=== PATIENT | female | born 1970 | race Caucasian/White ===

== ENCOUNTER 2019-12-25 02:52 | Day surgery (SDC) | payer OTHER, SELFPAY ==
[2019-12-18 13:11] VITALS: BMI 36.0
--- NOTE | 2019-12-24 12:53 | HP_ITS ---
DATE OF SERVICE: 12/25/2019 HISTORY: A 49-year-old with hoarseness. She voices hoarse. She has trouble breathing, feels like her throat is closing. REVIEW OF SYSTEMS: Unremarkable. PHYSICAL EXAMINATION: CHEST: Clear. HEART: Without murmurs. ABDOMEN: Soft. EXTREMITIES: Negative. IMPRESSION: Swollen cords. PLAN: Direct laryngoscopy. She had a fiberoptic laryngoscopy in the office which showed swollen cords. D I MT: Toi
[2019-12-25] VITALS (11 sets, daily range): BP systolic 107–139; BP diastolic 68–84; PULSE 67–85; RESP 14–20; TEMP 36–36.2; O2SAT 87–99
--- NOTE | 2019-12-25 06:02 | WPDHPUPDATE1 ---
History and Physical Update Update Date/Time: 12/25/19 06:02 History and Physical has been reviewed, including an updated exam of the patient. There are NO changes in the patient's condition. Risks, benefits, and alternatives have been discussed and questions answered. Patient agrees to proceed with procedure.
[2019-12-25] MEDS: LACTATED RINGERS 1,000 ML 30 ML IV CONT (08:25)
--- NOTE | 2019-12-25 08:31 | WPDANESEPPF ---
Anes - Initial Pre Proc Eval Procedure: Operation Date: 12/25/19 09:45 Proposed Procedures p Microlaryngoscopy with Biopsy - Kulwant Anaya MD Date/Time: 12/25/19 08:31 Surgeon: Kulwant Anaya MD Pre Op Diagnosis: Chronic Hoarseness Patient Data Age: 49 Gender: F Height: 5 ft 7 in Weight: 104.33 kg Allergies Allergy/AdvReac Type Severity Reaction Status Date / Time No Known Allergies Allergy Verified 12/18/19 13:12 Home Medications Medication Instructions Recorded Confirmed Type albuterol sulfate 2 puff INHALATION DAILY 12/18/19 12/18/19 History albuterol sulfate 2.5 mg INHALATION DIRECTED PRN 12/18/19 12/18/19 History budesonide-formoterol [Symbicort] 1 inh INHALATION DAILY 12/18/19 12/18/19 History duloxetine 60 mg PO DAILY 12/18/19 12/18/19 History fluoxetine 20 mg PO DAILY 12/18/19 12/18/19 History fluticasone propionate 1 spray INTRANASAL BID 12/18/19 12/18/19 History lamotrigine 50 mg PO DAILY 12/18/19 12/18/19 History lithium carbonate 450 mg PO BID 12/18/19 12/18/19 History montelukast 10 mg PO DAILY 12/18/19 12/18/19 History nicotine 1 patch TRANSDERMAL DAILY 12/18/19 12/18/19 History omeprazole 40 mg PO DAILY 12/18/19 12/18/19 History quetiapine 25 mg PO DAILY 12/18/19 12/18/19 History quetiapine 300 mg PO HS 12/18/19 12/18/19 History ropinirole 8 mg PO HS 12/18/19 12/18/19 History umeclidinium [Incruse Ellipta] 1 inh INHALATION DAILY 12/18/19 12/18/19 History valacyclovir 500 mg PO DAILY PRN 12/18/19 12/18/19 History Patient hx anesthesia problems: none Family hx anesthesia problems: none PMFSH Past Medical History Medical History (Updated 12/25/19 @ 08:31 by Calvin Holt MD) Bipolar 1 disorder COPD (chronic obstructive pulmonary disease) Hypertension Hyperthyroidism Social History Social History (Updated 12/25/19 @ 08:26 by Calvin Holt MD) Smoking status: Current every day smoker Alcohol intake: former Anes - Eval Final PreProcedure Day of Procedure 12/25/19 08:31 Patient weight: obese Heart: regular rate and rhythm Lungs: clear to auscultation Airway: Mallampati scale class III Neurological: alert and oriented Last oral intake: >/= 8 hours ASA classification: III Emergent: no Anesthetic plan: proceed Anesthesia type and monitoring: general ETT and standard monitoring Informed Consent: The patient's anesthetic plan and its attendant risks and benefits were discussed with the patient/family/POA. Questions were solicited and answers provided to the satisfaction of the patient/family/POA.
--- NOTE | 2019-12-25 09:44 | PM.PROC ---
Procedure Note - Detailed Date of procedure: 12/25/19 Pre-op diagnosis: Chronic Hoarseness Description of procedure: Patient was prepped general anesthesia of laryngoscope was introduced to the level of glottis. Large lesions were seen on the right side which were adequately biopsied sent for pathologic examination patient awakened returned to recovery in good condition Anesthesia: GLMA Surgeon: Kulwant Anaya MD Estimated blood loss (mL): 5 Packing: No Pathology: yes Complications: No immediate complications Condition: stable Disposition: PACU
--- NOTE | 2019-12-25 10:35 | SUR.PHASEI ---
[address] KRUEGER PER PHONE & MADE AWARE PT ON 2L O2 PER NC. DR ALEMAN TO DISCHARGE PT TO OP RECOVERY ON 2L OXYGEN & HAVE PT WEANED OFF O2 BEFORE D/C HOME.
--- NOTE | 2019-12-25 11:46 | SUR.PHASEII ---
Pt and her friend awaiting pick from med car, per PTs friend expected arrival within the hour
--- NOTE | 2019-12-25 11:55 | SUR.PHASEII ---
Pt given discharge instructions with friend at the bedside, awaiting medcar
== END 2019-12-25 12:40 | disposition home or self-care (01) ==
PROVIDERS: PCP Internal Medicine; Visit Provider Otolaryngology
PROC: 0CJS8ZZ Inspection of Larynx, Via Natural or Artificial Opening Endoscopic (ICD-10-PCS; CPT 31575; principal; 2019-12-25 09:45)
DX: J04.0 Acute laryngitis (principal); I10 Essential (primary) hypertension; J44.9 Chronic obstructive pulmonary disease, unspecified; E21.3 Hyperparathyroidism, unspecified; F31.9 Bipolar disorder, unspecified; F17.210 Nicotine dependence, cigarettes, uncomplicated; E66.9 Obesity, unspecified; Z68.35 Body mass index [BMI] 35.0-35.9, adult
CPT/HCPCS: 31536; 88305; A9270; J0330; J1100; J2250; J2405; J2704; J3010; J7120

== ENCOUNTER 2019-12-30 09:33 | Emergency (ER) | payer OTHER, SELFPAY ==
--- NOTE | ~2019-12-30 | XR_ITS ---
XR chest 2V DATE: 12/30/2019 10:02 INDICATION: Shortness of breath. Positive influenza. History of COPD. TECHNIQUE: PA and lateral views COMPARISON: None FINDINGS: Normal heart size. No hilar or mediastinal enlargement. No pulmonary infiltrate or consolid ation, pleural effusion or pulmonary vascular congestion or pneumothorax. Included skeletal structures are unremarkable. IMPRESSION: No active cardiopulmonary disease Reviewed, dictated and finalized at location [facility]
--- NOTE | 2019-12-30 09:38 | ED_ITS ---
I attest that this documentation has been prepared under the direction and in the presence of Shoshana Roberts MD. Yaa Gonzalez Scribe 12/30/19;09:38 HPI - URI/Sore Throat General Chief Complaint: Shortness of Breath/Dyspnea Stated Complaint: sob Time Seen by Provider: 12/30/19 09:38 Related Data Home Medications Medication Instructions Recorded Confirmed Incruse Ellipta 1 inh INHALATION DAILY 12/18/19 12/25/19 albuterol sulfate 2 puff INHALATION DAILY 12/18/19 12/25/19 albuterol sulfate 2.5 mg INHALATION DIRECTED PRN 12/18/19 12/25/19 budesonide-formoterol [Symbicort] 1 inh INHALATION DAILY 12/18/19 12/25/19 duloxetine 60 mg PO DAILY 12/18/19 12/25/19 fluoxetine 20 mg PO DAILY 12/18/19 12/25/19 fluticasone propionate 1 spray INTRANASAL BID 12/18/19 12/25/19 lamotrigine 50 mg PO DAILY 12/18/19 12/25/19 lithium carbonate 450 mg PO BID 12/18/19 12/25/19 montelukast 10 mg PO DAILY 12/18/19 12/25/19 nicotine 1 patch TRANSDERMAL DAILY 12/18/19 12/25/19 omeprazole 40 mg PO DAILY 12/18/19 12/25/19 quetiapine 25 mg PO DAILY 12/18/19 12/25/19 quetiapine 300 mg PO HS 12/18/19 12/25/19 ropinirole 8 mg PO HS 12/18/19 12/25/19 valacyclovir 500 mg PO DAILY PRN 12/18/19 12/25/19 Allergies Allergy/AdvReac Type Severity Reaction Status Date / Time No Known Allergies Allergy Verified 12/25/19 08:55 [facility] Past Medical History Medical History (Updated 12/25/19 @ 08:31 by Calvin Holt MD) Bipolar 1 disorder COPD (chronic obstructive pulmonary disease) Hypertension Hyperthyroidism Social History Social History (Updated 12/25/19 @ 08:26 by Calvin Holt MD) Smoking status: Current every day smoker Alcohol intake: former Discharge Plan Discharge Prescriptions: No Action quetiapine 25 mg tablet 25 mg PO DAILY RF: 0 quetiapine 300 mg tablet 300 mg PO HS RF: 0 albuterol sulfate 2.5 mg /3 mL (0.083 %) solution for nebulization 2.5 mg inhalation DIRECTED PRN (Reason: Shortness Of Breath Or Wheezing) RF: 0 valacyclovir 500 mg tablet 500 mg PO DAILY PRN (Reason: Outbreak) RF: 0 omeprazole 40 mg capsule,delayed release(DR/EC) 40 mg PO DAILY RF: 0 lithium carbonate 450 mg Tablet Extended Release 450 mg PO BID RF: 0 nicotine 21 mg/24 hr patch 24 hour 1 patch transdermal DAILY RF: 0 montelukast 10 mg tablet 10 mg PO DAILY RF: 0 albuterol sulfate 90 mcg/actuation HFA aerosol inhaler 2 puff INHALATION DAILY RF: 0 fluoxetine 20 mg capsule 20 mg PO DAILY RF: 0 fluticasone propionate 50 mcg/actuation spray,suspension 1 spray INTRANASAL BID RF: 0 duloxetine 60 mg capsule,delayed release(DR/EC) 60 mg PO DAILY RF: 0 budesonide-formoterol [Symbicort] 160-4.5 mcg/actuation HFA aerosol inhaler 1 inh INHALATION DAILY RF: 0 ropinirole 8 mg Tablet Extended Release 24 Hr 8 mg PO HS RF: 0 lamotrigine 50 mg Tablet Extended Release 24hr 50 mg PO DAILY RF: 0 Incruse Ellipta 62.5 mcg/actuation blister with device 1 inh INHALATION DAILY RF: 0
[2019-12-30 09:41] VITALS: BP 120/68; PULSE 88; RESP 14; TEMP 36.2; O2SAT 98
--- NOTE | 2019-12-30 09:45 | ECG_ITS ---
Measurements Intervals [place] Rate: 92 P: 62 TX: 155 QRS: 61 QRSD: 81 T: 47 QT: 321 QTc: 399 Interpretive Statements SINUS RHYTHM BASELINE ARTIFACT- I, II, III NORMAL ECG Electronically Signed On 12-30-2019 11:24:46 CASH ACCOUNTING CLERK by Doug Hannah D.O.
--- NOTE | 2019-12-30 09:57 | ED.SOB ---
HPI - SOB/Dyspnea General Chief Complaint: Shortness of Breath/Dyspnea Stated Complaint: sob Time Seen by Provider: 12/30/19 09:38 Source: patient Mode of arrival: EMS Limitations: no limitations History of Present Illness HPI Narrative: This is a 49 year old female that presents to the ER for cold symptoms x 2 days. Reports cough, myalgias, chills and congestion. She did not get her influenza vaccine this year. Reports shortness of breath and history of COPD. Reports she had a biopsy of her throat earlier this week for chronic hoarseness by Dr. Anaya. Denies chest pain. Related Data Home Medications Medication Instructions Recorded Confirmed Incruse Ellipta 1 inh INHALATION DAILY 12/18/19 12/25/19 albuterol sulfate 2 puff INHALATION DAILY 12/18/19 12/25/19 albuterol sulfate 2.5 mg INHALATION DIRECTED PRN 12/18/19 12/25/19 budesonide-formoterol [Symbicort] 1 inh INHALATION DAILY 12/18/19 12/25/19 duloxetine 60 mg PO DAILY 12/18/19 12/25/19 fluoxetine 20 mg PO DAILY 12/18/19 12/25/19 fluticasone propionate 1 spray INTRANASAL BID 12/18/19 12/25/19 lamotrigine 50 mg PO DAILY 12/18/19 12/25/19 lithium carbonate 450 mg PO BID 12/18/19 12/25/19 montelukast 10 mg PO DAILY 12/18/19 12/25/19 nicotine 1 patch TRANSDERMAL DAILY 12/18/19 12/25/19 omeprazole 40 mg PO DAILY 12/18/19 12/25/19 quetiapine 25 mg PO DAILY 12/18/19 12/25/19 quetiapine 300 mg PO HS 12/18/19 12/25/19 ropinirole 8 mg PO HS 12/18/19 12/25/19 valacyclovir 500 mg PO DAILY PRN 12/18/19 12/25/19 Allergies Allergy/AdvReac Type Severity Reaction Status Date / Time No Known Allergies Allergy Verified 12/30/19 09:47 Review of Systems Review of Systems: Narrative: CONSTITUTIONAL: Reports fever, chills ENT: Reports rhinorrhea, congestion, sore throat. Denies otalgia. CARDIOVASCULAR: Denies chest pain RESPIRATORY: Reports cough and dyspnea. MUSCULOSKELETAL: Reports myalgias. All systems reviewed & are unremarkable except as noted in HPI and below PMFSH Past Medical History Medical History (Updated 12/30/19 @ 10:35 by Ashleigh Sommers PA-C) Bipolar 1 disorder COPD (chronic obstructive pulmonary disease) Hypertension Hyperthyroidism Social History Social History (Updated 12/25/19 @ 08:26 by Calvin Holt MD) Smoking status: Current every day smoker Alcohol intake: former Gender identity (if verbalized by the patient): Female Exam Narrative: Exam Narrative: GENERAL: Well-appearing, well-nourished, and in no acute distress. HEAD: Normocephalic, atraumatic. EYES: EOMI. ENT: Turbinates swollen and pale. Mucous membranes moist. Oropharynx with mild erythema, without tonsillar hypertrophy, exudate or other lesions. Bilateral TMs pearly noguera non-bulging NECK: Supple. No adenopathy or masses. CHEST: No respiratory distress. Coarse breath sounds. Scattered wheezes. No rales or rhonchi HEART: Regular rate and rhythm. No murmur heard. Normal peripheral pulses. EXTREMITIES: Normal range of motion. No edema. SKIN: Warm, dry, no rash. NEURO: No focal deficits. Alert and oriented x3. PSYCH: Normal mood and affect Course Reevaluation(s) Reevaluation #1: Patient with improvement after breathing treatment. Lungs sound much more clear, mild scattered wheezes Date: 12/30/19 Time: 10:34 Vital Signs Vital signs: Vital Signs Temperature 97.2 F L 12/30/19 09:41 Pulse Rate 88 12/30/19 09:41 Respiratory Rate 14 12/30/19 09:41 Blood Pressure 120/68 12/30/19 09:41 Pulse Oximetry 98 12/30/19 09:41 Temperature 97.2 F L 12/30/19 09:41 Pulse Rate 81 12/30/19 10:11 Respiratory Rate 22 H 12/30/19 10:11 Blood Pressure 120/68 12/30/19 09:41 Pulse Oximetry 98 12/30/19 09:41 MDM - SOB/Dyspnea MDM Narrative Medical decision making narrative: Patient presents to the ER for cold symptoms x2 days. She is afebrile and nontoxic-appearing. CBC and metabolic panel is without acute changes. Chest x-ray is without acute changes. Pat
[2019-12-30 10:03] VITALS: PULSE 80; RESP 22
[2019-12-30] MEDS: IPRATROPIUM BR 0.02% INH SOLN 0.5 MG/2.5 ML VIAL INHALATION (10:03)
[2019-12-30] MEDS: ALBUTEROL SULFATE NEB 2.5 MG/0.5 ML INH 5 MG INHALATION (10:03)
[2019-12-30 10:11] VITALS: PULSE 81; RESP 22
[2019-12-30 10:12] LABS: Basophils Percent Auto 0.4 % (0.2-1.2); Eosinophils Absolute Auto 0.2 K/mm3 (0-0.3); Eosinophils Percent Auto 1.8 % (0-4.4); Hematocrit 40.1 % (37.0-47.0); Immature Granulocyte Absolute 0.03 K/mm3 (0.00-0.031); Immature Granulocyte Percent A 0.4 % (0-0.5); Lymphocytes Percent Auto 14.3 % (18.3-44.2); Mean Corpuscular HGB Conc 32.4 g/dl (32-36); Mean Corpuscular Hemoglobin 30.5 pg (26-34); Mean Corpuscular Volume 94.1 fl (80-100); Mean Platelet Volume 9.6 fl (7.4-10.4); Monocytes Absolute Auto 0.7 K/mm3 (0.1-0.6); Neutrophils Absolute Auto 6.3 K/mm3 (1.3-6.7); Neutrophils Percent Auto 75.1 % (45.5-73.1); Platelet Count Result 195 k/mm3 (150-375); Red Blood Count 4.26 M/mm3 (4.2-5.4); Red Cell Distribution Width 13.6 % (11.5-14.5); White Blood Count 8.4 K/mm3 (4.5-10.0)
[2019-12-30 10:25] LABS: Blood Urea Nitrogen 9 mg/dL (7-17); Calcium 8.9 mg/dL (8.4-10.2); Carbon Dioxide 22 mmol/L (22-30); Chloride 109 mmol/L (98-107); Estimated Glomerular Filt Rate > 60; Glucose 116 mg/dL (65-105); Potassium 4.1 mmol/L (3.4-5.0); Sodium 141 mmol/L (137-145)
[2019-12-30] MEDS: predniSONE 20 MG TABLET 60 MG PO (10:35)
[2019-12-30] MEDS: ACETAMINOPHEN 500 MG TABLET 1000 MG PO (10:35)
[2019-12-30] MEDS: OSELTAMIVIR PHOSPHATE 75 MG CAP PO (10:35)
[2019-12-30 11:00] VITALS: BP 105/75; PULSE 78; RESP 16; O2SAT 96
== END 2019-12-30 11:00 | disposition home or self-care (01) ==
PROVIDERS: Physician Assistant; Emergency Provider Emergency Medicine; PCP Internal Medicine
DX: J10.1 Influenza due to other identified influenza virus with other respiratory manifestations (principal); J44.1 Chronic obstructive pulmonary disease with (acute) exacerbation; F31.9 Bipolar disorder, unspecified; I10 Essential (primary) hypertension; E05.90 Thyrotoxicosis, unspecified without thyrotoxic crisis or storm; F17.200 Nicotine dependence, unspecified, uncomplicated
CPT/HCPCS: 36415; 71046; 80048; 85025; 87804; 93005; 94640; 99283; A9270; J7512

== ENCOUNTER 2020-04-12 00:38 | Outpatient (CLI) | payer OTHER, SELFPAY ==
[2020-04-12 16:46] LABS: SARS-CoV-2 RNA PCR Negative
== END 2020-04-12 00:39 | disposition home or self-care (01) ==
LOC: ANHCOVIDDT 00:39
PROVIDERS: PCP Internal Medicine; Visit Provider Otolaryngology
DX: Z01.812 Encounter for preprocedural laboratory examination (principal); Z20.828 Contact with and (suspected) exposure to other viral communicable diseases
CPT/HCPCS: 87635; C9803; U0003

== ENCOUNTER 2020-04-15 00:55 | Day surgery (SDC) | payer OTHER, SELFPAY ==
--- NOTE | 2020-04-10 06:25 | PM.HPGS ---
History of Present Illness History of Present Illness Consent: Risks, benefits, and alternatives have been discussed and questions answered. Patient agrees to proceed with procedure. Chief complaint: Chronic Horseness Narrative: Michelle Marshall is a 49 year old female Review of Systems Review of Systems: Narrative: Patient is admitted for evaluation of hoarseness her vocal cords are scarred she is admitted for microlaryngoscopy and vocal stripping chest clear heart murmurs abdomen is soft extremities negative hoarseness chronic laryngitis PMFSH Social History Social History Smoking status: Current every day smoker Alcohol intake: former Gender identity (if verbalized by the patient): Female Meds Home Medications and Allergies Home Medications Medication Instructions Recorded Confirmed Type Incruse Ellipta 1 inh INHALATION DAILY 12/18/19 12/25/19 History duloxetine 60 mg PO DAILY 12/18/19 12/25/19 History fluoxetine 20 mg PO DAILY 12/18/19 12/25/19 History fluticasone propionate 1 spray INTRANASAL BID 12/18/19 12/25/19 History lamotrigine 50 mg PO DAILY 12/18/19 12/25/19 History lithium carbonate 450 mg PO BID 12/18/19 12/25/19 History nicotine 1 patch TRANSDERMAL DAILY 12/18/19 12/25/19 History omeprazole 40 mg PO DAILY 12/18/19 12/25/19 History quetiapine 25 mg PO DAILY 12/18/19 12/25/19 History quetiapine 300 mg PO HS 12/18/19 12/25/19 History ropinirole 8 mg PO HS 12/18/19 12/25/19 History valacyclovir 500 mg PO DAILY PRN 12/18/19 12/25/19 History methylprednisolone 4 mg tablets in See Rx Instructions PO PER PKG DIR 02/04/20 02/04/20 Rx a dose pack #21 each Allergies Allergy/AdvReac Type Severity Reaction Status Date / Time No Known Allergies Allergy Verified 12/30/19 09:47 Exam HENMT: Other: tympanic membranes retracted with fluid nose mild negative serous otitis bilateral Assessment and Plan Additional Plan Microlaryngoscopy and vocal stripping examination of vocal cords is my plan
[2020-04-10 14:32] VITALS: BMI 39.1
[2020-04-15] VITALS (18 sets, daily range): BP systolic 110–160; BP diastolic 67–101; PULSE 65–112; RESP 14–27; TEMP 36.2–37.1; O2SAT 88–100
--- NOTE | 2020-04-15 06:15 | WPDHPUPDATE1 ---
History and Physical Update Update Date/Time: 04/15/20 06:15 History and Physical has been reviewed, including an updated exam of the patient. There are NO changes in the patient's condition. Risks, benefits, and alternatives have been discussed and questions answered. Patient agrees to proceed with procedure.
[2020-04-15] MEDS: LACTATED RINGERS 1,000 ML 30 ML IV CONT ×2 (07:20→09:15)
--- NOTE | 2020-04-15 07:45 | WPDANESEPPF ---
Anes - Initial Pre Proc Eval Procedure: Operation Date: 04/15/20 08:45 Proposed Procedures p Microlaryngoscopy With Biopsy - Kulwant Anaya MD Date/Time: 04/15/20 07:45 Surgeon: Kulwant Anaya MD Pre Op Diagnosis: Chronic Hoarseness Patient Data Age: 49 Gender: F Height: 5 ft 7 in Weight: 107.2 kg Allergies Allergy/AdvReac Type Severity Reaction Status Date / Time No Known Allergies Allergy Verified 04/15/20 07:25 Home Medications Medication Instructions Recorded Confirmed Type Incruse Ellipta 1 inh INHALATION DAILY 12/18/19 04/15/20 History duloxetine 60 mg PO DAILY 12/18/19 04/15/20 History fluticasone propionate 1 spray INTRANASAL BID 12/18/19 04/15/20 History lamotrigine 50 mg PO DAILY 12/18/19 04/15/20 History lithium carbonate 450 mg PO BID 12/18/19 04/15/20 History nicotine 1 patch TRANSDERMAL DAILY 12/18/19 04/15/20 History omeprazole 40 mg PO DAILY 12/18/19 04/15/20 History quetiapine 300 mg PO HS 12/18/19 04/15/20 History ropinirole 8 mg PO HS 12/18/19 04/15/20 History valacyclovir 500 mg PO DAILY PRN 12/18/19 04/15/20 History Dulera 100 mcg INHALATION BID 04/10/20 04/15/20 History quetiapine [Seroquel] 50 mg PO QAM 04/10/20 04/15/20 History Patient hx anesthesia problems: none Family hx anesthesia problems: none [facility] Past Medical History Medical History Bipolar 1 disorder COPD (chronic obstructive pulmonary disease) Hypertension Hyperthyroidism Social History Social History Smoking status: Current every day smoker Alcohol intake: former Gender identity (if verbalized by the patient): Female Anes - Eval Final PreProcedure Day of Procedure 04/15/20 07:45 Patient weight: obese Heart: regular rate and rhythm Lungs: decreased breath sounds Airway: Mallampati scale class II Neurological: alert and oriented Last oral intake: >/= 8 hours ASA classification: III Emergent: no Anesthetic plan: proceed Anesthesia type and monitoring: general ETT and standard monitoring Informed Consent: The patient's anesthetic plan and its attendant risks and benefits were discussed with the patient/family/POA. Questions were solicited and answers provided to the satisfaction of the patient/family/POA.
--- NOTE | 2020-04-15 08:50 | PM.PROC ---
Procedure Note - Detailed Date of procedure: 04/15/20 Pre-op diagnosis: Chronic Hoarseness Post-op diagnosis: same Procedure performed: Patient was prepped and draped in usual fashion after induction general anesthesia. The laryngoscope was introduced to the level of the glottis there is a large fleshy polyps in front of the vocal cords was difficult to ascertain which cord was coming from large up-biting biopsy forceps this was removed and sent for pathologic examination patient was then awakened returned to recovery in good condition Anesthesia: GLMA Surgeon: Kulwant Anaya MD Estimated blood loss (mL): 5.0 Drains: No Packing: No Pathology: yes Complications: No immediate complications Condition: stable Disposition: PACU
[2020-04-15] MEDS: ALBUTEROL SULFATE NEB 2.5 MG/3 ML INH INHALATION (09:30)
--- NOTE | 2020-04-15 10:14 | SUR.PHASEI ---
0858 - pt to pacu via stretcher. pt hooked up to monitor. o2 sats in 70s. pt unable to arouse. JACKIE Stevens at bedside. assisted with ambu-bag ventilation. o2 sats increased to 80%. Anesthesia called to PACU. 0900 - Anesthesia to bedside assisting with pt. mouth suctioned. scant amount of bloody drainage noted. Dr. James at bedside. 0910 - pt continues to have respiratory assistance given by anesthesia. 0913 - RT at bedside to place bipap on pt. o2 sats maintaining in 90s 0920 - Narcan 0.[address] James. 0925 - pt opens eyes and follows commands. breathing effort improving 0927 - albuterol treatment given by RT at bedside per Dr. James order 0935 - pt resting. pt follows commands. breathing effort improved 0945 - pt awake. complains of soreness to throat but tolerable. resp even and unlabored. pt warm and pink in color.
--- NOTE | 2020-04-15 10:42 | SUR.PHASEI ---
1037 - dr. varela updated 1038 - pt's friend Betsey called and updated
--- NOTE | 2020-04-15 10:47 | SUR.PHASEI ---
1038 - dr. mcknight updated on pt's status/
== END 2020-04-15 13:58 | disposition home or self-care (01) ==
PROVIDERS: PCP Internal Medicine; Visit Provider Otolaryngology
PROC: 0CJS8ZZ Inspection of Larynx, Via Natural or Artificial Opening Endoscopic (ICD-10-PCS; CPT 31575; principal; 2020-04-15 08:45)
DX: J38.1 Polyp of vocal cord and larynx (principal); J44.9 Chronic obstructive pulmonary disease, unspecified; I10 Essential (primary) hypertension; E05.90 Thyrotoxicosis, unspecified without thyrotoxic crisis or storm; F31.9 Bipolar disorder, unspecified; Z87.891 Personal history of nicotine dependence; E66.9 Obesity, unspecified; Z68.37 Body mass index [BMI] 37.0-37.9, adult
CPT/HCPCS: 31535; 88305; 94002; 94640; 94660; A9270; J0330; J1100; J2310; J2405; J2704; J3010; J7120

== ENCOUNTER 2020-05-14 08:33 | Outpatient (CLI) | payer OTHER, SELFPAY ==
--- NOTE | 2020-05-14 | ECHO_ITS ---
Patient Info Name: Michelle Marshall Age: 49 years : 1970 Gender: Female Ht: 67 in Wt: 250 lbs BSA: 2.37 m2 HR: 77 bpm BP: 143 / 84 mmHg Technical Quality: Good Exam Date: 05/14/2020 9:05 AM Exam Location: [facility] Patient Status: Outpatient Admit Date: 05/14/2020 Staff Ordering Physician: Marlon Anderson MD Bale Sewer: Yesica Dillon RDCS Attending Provider: Marlon Anderson MD Referring Physician: Monica MACKENZIE; Exam Type: CA echo doppler color flow Study Info Indications - chest pain Complete two-dimensional, color flow and Doppler transthoracic echocardiogram is performed. Summary 1. Left ventricular chamber dimension is normal. 2. Left ventricular systolic function is normal, estimated at 60-65%. 3. The left ventricular diastolic function is grade II diastolic dysfunction. 4. E/e' 12 is mildly elevated. 5. Left atrial chamber dimension is mildly enlarged. 6. There is trace tricuspid valve regurgitation. 7. No pulmonary hypertension, estimated pulmonary arterial systolic pressure is 20 mmHg. Left Ventricle E/e' 12 is mildly elevated. Left ventricular chamber dimension is normal. Left ventricular systolic function is normal, estimated at 60-65%. The left ventricular diastolic function is grade II diastolic dysfunction. Right Ventricle Right ventricular chamber dimension is normal. Right ventricular systolic function is normal. Left Atria Left atrial chamber dimension is mildly enlarged. Right Atria Right atrial chamber dimension is normal. Aortic Valve The aortic valve is trileaflet. There is no aortic valve stenosis. There is no aortic valve regurgitation. Pulmonic Valve There is no pulmonic regurgitation. Mitral Valve There is no mitral valve stenosis. There is no mitral valve regurgitation. Tricuspid Valve There is trace tricuspid valve regurgitation. No pulmonary hypertension, estimated pulmonary arterial systolic pressure is 20 mmHg. Pericardium/Pleural There is no pericardial effusion. Inferior Vena Cava Normal inferior vena cava with >50% collapse upon inspiration consistent with normal right atrial pressure, 5 mmHg. Aorta The aortic root size at the sinus of Valsalva is normal. Left Ventricular Outflow Tract Name Value Normal LVOT 2D LVOT Diameter 2.0 cm LVOT Doppler LVOT Peak Gradient 5 mmHg LVOT Mean Gradient 3 mmHg LVOT VTI 24 cm LVOT VTI/AV VTI Ratio 0.9 LVOT Stroke Volume 74 ml LVOT CO 13.7 l/min LVOT CI 5.8 l/min/m2 Pulmonic Valve Name Value Normal PV Doppler PV Peak Gradient 2 mmHg Mitral Valve
== END 2020-05-14 08:34 | disposition home or self-care (01) ==
LOC: ANHCARD 08:35
PROVIDERS: PCP Internal Medicine; Visit Provider Internal Medicine
DX: R07.9 Chest pain, unspecified (principal); I51.7 Cardiomegaly
CPT/HCPCS: 93306

== ENCOUNTER 2020-05-14 09:32 | Emergency (ER) | payer OTHER, SELFPAY ==
--- NOTE | ~2020-05-14 | XR_ITS ---
EXAMINATION: XR shoulder RT min 2V INDICATION: Right shoulder pain TECHNIQUE: Four views of the right shoulder are submitted. COMPARISON: 12/30/2019 FINDINGS: Normal alignment. No fracture. Glenohumeral and acromioclavicular joint spaces are normal. A metallic density in the right breast may reflect a biopsy marker. IMPRESSION: No acute osseous abnormality. Reviewed, dictated and finalized at location A.
--- NOTE | ~2020-05-14 | XR_ITS ---
EXAMINATION: XR finger 1st LT min 2V DATE: 05/14/2020 10:48 INDICATION: Left thumb pain post fall TECHNIQUE: Dorsal palmar, lateral and 2 oblique views of the left first digit were obtained COMPARISON: None FINDINGS: Alignment is normal. No fracture. Mild polyarticular osteoarthritis at the triscaphe, first carpometa carpal and first interphalangeal joints. Tiny corticated ossicle at the dorsal aspect of the first ca rpal metacarpal joint space likely degenerative in etiology. IMPRESSION: 1. No acute osseous abnormality. Reviewed, dictated and finalized at location A.
--- NOTE | ~2020-05-14 | CT_ITS ---
EXAMINATION: CT brain wo con DATE: 05/14/2020 10:28 INDICATION: Fall. Syncope. TECHNIQUE: Computed tomography (CT) of the head was performed without intravenous contrast. The mA wa s adjusted according to patient size. Iterative reconstruction technique was employed. Exam dose: 60 5.33 mGy-cm total exam DLP. COMPARISON: None FINDINGS: No intracranial mass lesion or hemorrhage or cerebrovascular accident is evident. No midlin e shift or mass effect. Normal ventricular size. Mild bilateral carotid siphon internal carotid artery calcifications are noted. No subdural or epidural hematoma. No orbital mass lesion is evident. No fracture or bone destruction of the cranial vault. Included paranasal sinuses and the mastoid air cells are normally developed and aerated. IMPRESSION: No skull fracture or acute intracranial abnormality Reviewed, dictated and finalized at Location A. Reviewed, dictated and finalized at location A.
--- NOTE | ~2020-05-14 | CT_ITS ---
EXAMINATION: CT cervical spine wo con DATE: 05/14/2020 10:29 INDICATION: Fall with head injury resulting in syncope presenting with subsequent right shoulder and right facial pain TECHNIQUE: Computed tomography (CT) of the cervical spine was performed without intravenous contrast. Automated exposure control and iterative reconstruction technique were employed. The dose-length pro duct was 579.23 mGy-cm. COMPARISON: None FINDINGS: Bone alignment is normal. Vertebral body heights are normal. No fracture. Mild disc height loss at C5 -C6. There are disc bulges resulting in mild central canal stenosis at C2-C3 through C6-C7. Mild unco vertebral and facet osteoarthritis at a few levels. Mild neural foraminal stenosis on the left at C5- C6. The visualized cervical soft tissues and apices of the lungs are unremarkable. IMPRESSION: 1. Mild cervical spondylosis. No acute osseous abnormality. Reviewed, dictated and finalized at location A.
[2020-05-14 09:37] VITALS: BP 145/80; PULSE 77; RESP 18; TEMP 36.3; O2SAT 96
--- NOTE | 2020-05-14 09:50 | ECG_ITS ---
Measurements Intervals [place] Rate: 68 P: 57 [place]: 165 QRS: 47 QRSD: 88 T: 80 QT: 368 QTc: 394 Interpretive Statements SINUS RHYTHM BORDERLINE T WAVE ABNORMALITY- HIGH LATERAL LEADS BASELINE WANDER- V5 BORDERLINE ECG Electronically Signed On 05-14-2020 10:33:26 CDT by Doug Hannah D.O.
[2020-05-14 10:05] VITALS: PULSE 84
--- NOTE | 2020-05-14 10:19 | PC.NURSE ---
Pt to CT/xray via stretcher.
[2020-05-14 10:29] LABS: Basophils Absolute Auto 0.1 K/mm3 (0.0-0.1); Basophils Percent Auto 0.5 % (0.2-1.2); Eosinophils Absolute Auto 0.2 K/mm3 (0-0.3); Eosinophils Percent Auto 1.4 % (0-4.4); Hematocrit 41.2 % (37.0-47.0); Hemoglobin 13.3 g/dL (12.0-15.0); Immature Granulocyte Absolute 0.06 K/mm3 (0.00-0.031); Immature Granulocyte Percent A 0.5 % (0-0.5); Lymphocytes Absolute Auto 1.57 K/mm3 (0.9-3.2); Lymphocytes Percent Auto 13.7 % (18.3-44.2); Mean Corpuscular HGB Conc 32.3 g/dl (32-36); Mean Corpuscular Volume 89.8 fl (80-100); Monocytes Absolute Auto 0.9 K/mm3 (0.1-0.6); Monocytes Percent Auto 7.6 % (2.6-8.5); Neutrophils Absolute Auto 8.8 K/mm3 (1.3-6.7); Neutrophils Percent Auto 76.3 % (45.5-73.1); Platelet Count Result 319 k/mm3 (150-375); Red Blood Count 4.59 M/mm3 (4.2-5.4); Red Cell Distribution Width 14.4 % (11.5-14.5); White Blood Count 11.5 K/mm3 (4.5-10.0)
[2020-05-14 10:42] LABS: Add Urine Microscopic? NO; Appearance Urine Clear (Clear); Bilirubin Urine Negative (Negative); Blood Urine Negative (Negative); Color Urine Yellow (Yellow); Glucose Urine UA Negative (Negative); Ketones Urine Negative (Negative); Leukocyte Esterase Ur Negative LEU/UL (Negative); Nitrate Urine Negative (Negative); Protein Urine Negative (Negative); Specific Grav Ur 1.015 (1.001-1.035); Urobilinogen Urine Negative mg/dL (<2.0)
[2020-05-14 10:44] LABS: Alanine Aminotransferase 29 U/L (4-35); Albumin Level 4.3 g/dL (3.5-5.1); Alkaline Phosphatase 141 U/L (38-126); Aspartate Amino Transferase 28 U/L (14-36); Bilirubin,Total 0.3 mg/dL (0.2-1.3); Blood Urea Nitrogen 12 mg/dL (7-17); Calcium 9.2 mg/dL (8.4-10.2); Carbon Dioxide 24 mmol/L (22-30); Chloride 108 mmol/L (98-107); Estimated CRCL calculation 149 ml/min; Estimated Glomerular Filt Rate > 60; Glucose 85 mg/dL (65-105); Potassium 4.2 mmol/L (3.4-5.0); Sodium 138 mmol/L (137-145)
[2020-05-14 10:45] LABS: Ethanol < 10 mg/dL (<10)
[2020-05-14 10:53] VITALS: BP 131/84; PULSE 70; RESP 19; O2SAT 96
[2020-05-14] MEDS: FAMOTIDINE 20 MG/2 ML VIAL IV PUSH (10:54)
--- NOTE | 2020-05-14 10:54 | ED.SYNCOPE ---
HPI - Syncope General Chief Complaint: Syncope Stated Complaint: fell out of bed Time Seen by Provider: 05/14/20 10:08 Source: patient Mode of arrival: ambulatory Limitations: no limitations History of Present Illness HPI narrative: Patient is a 49-year-old female who presents to emergency department for evaluation of possible syncopal episode patient was on the bed eating a brownie when she nodded off patient notes that she has been having these episodes and believes that she is falling asleep. Patient on arrival to emergency department notes right shoulder pain right side of her head pain and left thumb pain from the fall from her bed to the floor. Patient denies any recent illness or other complaints. Patient notes she has been compliant with her medications. Patient denies alcohol or drug abuse. On arrival patient in the room in no distress Related Data Home Medications Medication Instructions Recorded Confirmed Incruse Ellipta 1 inh INHALATION DAILY 12/18/19 04/15/20 duloxetine 60 mg PO DAILY 12/18/19 04/15/20 fluticasone propionate 1 spray INTRANASAL BID 12/18/19 04/15/20 lamotrigine 50 mg PO DAILY 12/18/19 04/15/20 lithium carbonate 450 mg PO BID 12/18/19 04/15/20 nicotine 1 patch TRANSDERMAL DAILY 12/18/19 04/15/20 omeprazole 40 mg PO DAILY 12/18/19 04/15/20 quetiapine 300 mg PO HS 12/18/19 04/15/20 ropinirole 8 mg PO HS 12/18/19 04/15/20 valacyclovir 500 mg PO DAILY PRN 12/18/19 04/15/20 Dulera 100 mcg INHALATION BID 04/10/20 04/15/20 quetiapine [Seroquel] 50 mg PO QAM 04/10/20 04/15/20 Allergies Allergy/AdvReac Type Severity Reaction Status Date / Time No Known Allergies Allergy Verified 05/14/20 09:42 Review of Systems Review of Systems: All systems reviewed & are unremarkable except as noted in HPI and below PMFSH Past Medical History Medical History Bipolar 1 disorder COPD (chronic obstructive pulmonary disease) Hypertension Hyperthyroidism Social History Social History Smoking status: Current every day smoker Alcohol intake: former Gender identity (if verbalized by the patient): Female Exam Narrative: Exam Narrative: GENERAL: Well-appearing, obese, and in no acute distress. HEAD: Normocephalic, atraumatic. EYES: PERRLA and EOMI. ENT: Nares clear, no rhinorrhea or epistaxis. Mucous membranes moist. Oropharynx without tonsillar hypertrophy exudate or other lesions. Bilateral TMs pearly noguera nonbulging NECK: Supple. No adenopathy or masses. CHEST: Clear to auscultation. No respiratory distress. No wheezes rales or rhonchi HEART: Regular rate and rhythm. No murmur heard. Normal peripheral pulses. ABDOMEN: Soft, nontender, nondistended EXTREMITIES: Normal range of motion. 1+ edema to the lower extremities. Tenderness of the right shoulder and left thumb no deformities noted. Midline and paraspinal cervical tenderness. No thoracic or lumbar tenderness. SKIN: Warm, dry, no rash. NEURO: No focal deficits. Alert and oriented x3. Neurovascularly intact. Cranial nerves II through XII grossly intact PSYCH: Normal mood and affect. Course Course Emergency Course: Patient in the room at this time in no distress aware of case findings treatment plan and diagnosis agreeing to follow-up as directed with primary care and as well is aware of the recommendations and discussion with primary care Consultations Consultation #1: Spoke with Dr. Moore the patient's primary care doctor who knows the patient well and agrees that he can follow the patient on an outpatient basis in the next 7 days. Date: 05/14/20 Time: 12:50 Vital Signs Vital signs: Vital Signs Temperature 97.3 F L 05/14/20 09:37 Pulse Rate 77 05/14/20 09:37 Respiratory Rate 18 05/14/20 09:37 Blood Pressure 145/80 H 05/14/20 09:37 Pulse Oximetry 96 05/14/20 09:37 Temperature 97.3 F L 05/14/20 09:37 Puls
[2020-05-14] MEDS: SODIUM CHLORIDE 0.9% IV 1,000 ML 999 ML IV CONT (10:55)
[2020-05-14 10:56] LABS: Troponin I < 0.012 ng/mL (0.000-0.034)
[2020-05-14 11:00] LABS: Amphetamine Screen Urine Negative (Negative); Barbiturate Screen Urine Negative (Negative); Benzodiazepines Screen Urine Negative (Negative); Cannabinoid Screen Urine Negative (Negative); Cocaine Screen Urine Negative (Negative); Methadone Screen Urine Negative (Negative); Opiate Screen Urine Negative (Negative); Phencyclidine Screen Urine Negative (Negative)
[2020-05-14 11:13] LABS: NT Pro B Type Natriuretic Pept 154 PG/ML (5-100)
[2020-05-14 11:57] LABS: Partial Thromboplastin Time 25.8 SECONDS (22.3-36.8); Prothrombin Time 12.6 Seconds (11.1-14.7)
[2020-05-14 12:12] VITALS: BP 137/81; PULSE 68; RESP 14; O2SAT 94
[2020-05-14 12:14] LABS: Lithium 0.4 mmol/L (0.6-1.2)
--- NOTE | 2020-05-14 12:39 | PC.NURSE ---
Pt up from stretcher for ambulation assessment, pt up w/out assist, pt declines to use cane she came in with to ambulate. States I dont need it, they say Im off balance but I am not. Pt ambulated w/ one person minimal assist. EDP aware. Pt guided back to bed and placed on demographer.
[2020-05-14 13:10] LABS: Alveolar/Arterial O2 Gradient 28.6 mmHg; Carboxyhemoglobin 2.7 % THb (0-2.0); Fractional Inspired Oxygen 21 %; HCO3 ABG 22.1 mEq/l (22.0-26.0); Methemoglobin ABG 0.3 %THb (0-1.5); Oxygen Content ABG 16.9 %vol (16.0-22.0); Oxygen Saturation ABG 95.8 % (95.0-100.0); Oxyhemoglobin 91.9 % THb (90.0-100.0); PCO2 ABG 35.8 mmHg (35.0-45.0); PO2 ABG 78.3 mmHg (80.0-100.0); PO2 FiO2 Ratio Arterial Blood 3.73 %; Reduced Hemoglobin 5.1 %THb (0-5.0); pH ABG 7.409 (7.350-7.450)
[2020-05-14 13:14] VITALS: BP 131/89; PULSE 69; RESP 15; O2SAT 99
[2020-05-14 13:14] LABS: Device ROOM AIR; Modified Allen's Test Pass; Site Drawn RIGHT RADIAL
[2020-05-14 13:23] VITALS: BP 116/69; PULSE 63; RESP 18; O2SAT 96
== END 2020-05-14 13:27 | disposition home or self-care (01) ==
PROVIDERS: Emergency Medicine Emergency Medical Services; Emergency Provider Emergency Medicine; PCP Internal Medicine
DX: R55 Syncope and collapse (principal); M47.812 Spondylosis without myelopathy or radiculopathy, cervical region; F31.9 Bipolar disorder, unspecified; J44.9 Chronic obstructive pulmonary disease, unspecified; I10 Essential (primary) hypertension; E05.90 Thyrotoxicosis, unspecified without thyrotoxic crisis or storm; F17.210 Nicotine dependence, cigarettes, uncomplicated
CPT/HCPCS: 36415; 36600; 70450; 72125; 73030; 73140; 80053; 80178; 80307; 81003; 81025; 82375; 82805; 83050; 83880; 84484; 85025; 85610; 85730; 93005; 93306; 96361; 96365; 96375; 99284; J0131; J7030

== ENCOUNTER 2021-10-06 13:13 | Outpatient (CLI) | payer OTHER, SELFPAY ==
--- NOTE | ~2021-10-06 | US_ITS ---
EXAMINATION: US carotid duplex BI DATE: 10/06/2021 13:44 INDICATION: Syncope. TECHNIQUE: Grayscale, color Doppler, and pulsed Doppler images of the cervical carotid arteries were obtained. The degree of vessel stenosis is placed in one of the following categories: normal, <50%, 5 0-69%, >=70% but less than near-occlusion, near-occlusion, or total occlusion. Note that percent sten osis relative to normal distal artery lumen diameter is indirectly measured from velocity measurement s as described by Taiwo, et al. Radiology 2003; 229:340-346. COMPARISON: None. FINDINGS: RIGHT: The right common carotid artery (CCA) peak systolic velocity (PSV) is 104 cm/s. The right internal ca rotid artery (ICA) PSV is 76 cm/s. The right ICA end-diastolic velocity (EDV) is 27 cm/s. The right I CA/CCA PSV ratio is 0.7. Grayscale and color Doppler images yield an estimate of <50% diameter reduct ion from plaque in the ICA. There is antegrade flow in the right vertebral artery. LEFT: The left CCA PSV is 117 cm/s. The left ICA PSV is 82 cm/s. The left ICA EDV is 29 cm/s. The left ICA/ CCA PSV ratio is 0.7. Grayscale and color Doppler images yield an estimate of <50% diameter reduction from plaque in the ICA. There is antegrade flow in the left vertebral artery. IMPRESSION: 1. <50% stenosis in the right internal carotid artery. 2. <50% stenosis in the left internal carotid artery. Reviewed, dictated and finalized at location A. COLLECTOR
== END 2021-10-06 13:14 | disposition home or self-care (01) ==
LOC: ANHIMG 13:17
PROVIDERS: PCP Internal Medicine; Visit Provider Internal Medicine
DX: R55 Syncope and collapse (principal); I65.23 Occlusion and stenosis of bilateral carotid arteries
CPT/HCPCS: 93880

== ENCOUNTER 2022-03-01 13:43 | Outpatient (CLI) | payer OTHER, SELFPAY ==
--- NOTE | ~2022-03-01 | XR_ITS ---
EXAMINATION: XR cervical spine 4-5V DATE: 03/01/2022 14:13 INDICATION: Posterior neck pain. TECHNIQUE: 4 views of cervical spine were obtained. COMPARISON: CT cervical spine 05/14/2020 FINDINGS: There is mild kyphosis of cervical spine. There is 4 degrees levocurvature of cervicothorac ic spine. Vertebral body heights are normal. There is mildly decreased disc height at C5-C6. There is multilevel mild facet joint osteoarthritis. No central canal stenosis or prevertebral soft tissue sw elling. IMPRESSION: 1. Mild cervical spondylosis. Reviewed, dictated and finalized at location A.
--- NOTE | ~2022-03-01 | XR_ITS ---
EXAMINATION: XR lumbar spine 2-3V DATE: 03/01/2022 14:12 INDICATION: Left-sided low back pain. TECHNIQUE: 3 views of lumbar spine were obtained. COMPARISON: None. FINDINGS: There is 3 degrees levocurvature of lumbar spine. Vertebral body heights are normal. There is mildly decreased disc height at L3-L4 with endplate osteophytes. There is multilevel mild facet yessica int osteoarthritis. IMPRESSION: 1. Mild lumbar spondylosis. Reviewed, dictated and finalized at location A. IMPRESSION: 1. Mild lumbar spondylosis.
== END 2022-03-01 13:44 | disposition home or self-care (01) ==
PROVIDERS: PCP Internal Medicine; Visit Provider Internal Medicine
DX: M54.50 Low back pain, unspecified (principal); M54.2 Cervicalgia; M47.812 Spondylosis without myelopathy or radiculopathy, cervical region; M47.816 Spondylosis without myelopathy or radiculopathy, lumbar region
CPT/HCPCS: 72050; 72100

== ENCOUNTER 2023-10-12 11:05 | Emergency (ER) | payer OTHER, SELFPAY ==
[2023-10-12] VITALS (7 sets, daily range): BP systolic 96–118; BP diastolic 66–78; PULSE 53–68; RESP 16–20; TEMP 36.4; O2SAT 98–100
--- NOTE | ~2023-10-12 | XR_ITS ---
EXAMINATION: XR chest 2V DATE: 10/12/2023 11:46 INDICATION: Chest pain TECHNIQUE: PA and lateral views of the chest are obtained. COMPARISON: 12/30/2019 FINDINGS: The lungs are free of acute opacities. No pleural effusion or pneumothorax. The cardiomedia stinal silhouette is normal. There is moderate thoracic spondylosis. IMPRESSION: 1. No acute cardiopulmonary abnormality. Reviewed, dictated and finalized at location F. [facility] [employer]
--- NOTE | 2023-10-12 11:10 | ECG_ITS ---
Measurements Intervals [place] Rate: 67 P: 55 TN: 171 QRS: 42 QRSD: 92 T: 26 QT: 388 QTc: 412 Interpretive Statements SINUS RHYTHM NONSPECIFIC T-WAVE ABNORMALITY- ANTERIOR LEADS BORDERLINE ECG COMPARED TO ECG 05/14/2020 09:51:19 NO SIGNIFICANT CHANGES Electronically Signed On 10-12-2023 19:53:43 MEDICAL CLAIMS REPRESENTATIVE by Doug Hannah D.O.
[2023-10-12] MEDS: ASPIRIN 81 MG CHEWABLE TABLET 324 MG PO (11:19)
[2023-10-12 11:50] LABS: Basophils Percent Auto 0.5 % (0.2-1.2); Eosinophils Absolute Auto 0.1 K/mm3 (0-0.3); Eosinophils Percent Auto 1.4 % (0-4.4); Hematocrit 39.6 % (37.0-47.0); Hemoglobin 13.1 g/dL (12.0-15.0); Immature Granulocyte Absolute 0.01 K/mm3 (0.00-0.031); Immature Granulocyte Percent A 0.2 % (0-0.5); Lymphocytes Absolute Auto 1.68 K/mm3 (0.9-3.2); Lymphocytes Percent Auto 25.8 % (18.3-44.2); Mean Corpuscular HGB Conc 33.1 g/dl (32-36); Mean Corpuscular Hemoglobin 32.9 pg (26-34); Mean Corpuscular Volume 99.5 fl (80-100); Mean Platelet Volume 10.4 fl (7.4-10.4); Monocytes Absolute Auto 0.5 K/mm3 (0.1-0.6); Monocytes Percent Auto 6.9 % (2.6-8.5); Neutrophils Absolute Auto 4.2 K/mm3 (1.3-6.7); Neutrophils Percent Auto 65.2 % (45.5-73.1); Platelet Count Result 278 k/mm3 (150-375); Red Blood Count 3.98 M/mm3 (4.2-5.4); Red Cell Distribution Width 13.3 % (11.5-14.5); White Blood Count 6.5 K/mm3 (4.5-10.0)
[2023-10-12 12:00] LABS: INR 0.9; Prothrombin Time 12.4 Seconds (11.1-14.7)
[2023-10-12 12:01] LABS: Alanine Aminotransferase 23 U/L (6-35); Albumin Level 3.4 g/dL (3.5-5.1); Alkaline Phosphatase 101 U/L (38-126); Anion Gap 6 mmol/L (8-16); Aspartate Amino Transferase 28 U/L (14-36); Bilirubin,Total 0.3 mg/dL (0.2-1.3); Blood Urea Nitrogen 7 mg/dL (7-17); Calcium 8.4 mg/dL (8.4-10.2); Carbon Dioxide 26 mmol/L (22-30); Chloride 111 mmol/L (98-107); Estimated Glomerular Filt Rate > 60; Glucose 75 mg/dL (65-110); Lipase 95 U/L (23-300); Partial Thromboplastin Time 28.9 SECONDS (22.3-36.8); Potassium 3.5 mmol/L (3.4-5.0); Sodium 143 mmol/L (137-145)
[2023-10-12 12:13] LABS: Troponin I < 0.012 ng/mL (0.000-0.034)
--- NOTE | 2023-10-12 13:31 | ED.CHESTPAIN ---
HPI - Chest Pain General Chief Complaint: Chest Pain Stated Complaint: CP, back pain, MORRIS Time Seen by Provider: 10/12/23 11:46 History of Present Illness HPI narrative: 53-year-old female with history of CHF and COPD presenting presenting to the emergency department for evaluation of intermittent chest pain. Patient denies any associated shortness of breath. Patient denies any prior history of RI. Patient is still smoker. Related Data Home Medications Medication Instructions Recorded Confirmed duloxetine 60 mg capsule,delayed 60 mg PO DAILY 12/18/19 04/15/20 release fluticasone propionate 50 1 spray intranasal BID 12/18/19 04/15/20 mcg/actuation nasal spray,suspension lamotrigine 50 mg tablet,extended 50 mg PO DAILY 12/18/19 04/15/20 release 24 hr lithium carbonate 450 mg 450 mg PO BID 12/18/19 04/15/20 tablet,extended release nicotine 21 mg/24 hr daily 1 patch transdermal DAILY 12/18/19 04/15/20 transdermal patch omeprazole 40 mg capsule,delayed 40 mg PO DAILY 12/18/19 04/15/20 release quetiapine 300 mg tablet 300 mg PO HS 12/18/19 04/15/20 ropinirole 8 mg tablet,extended 8 mg PO HS 12/18/19 04/15/20 release 24 hr umeclidinium 62.5 mcg/actuation 1 inh inhalation DAILY 12/18/19 04/15/20 blister powder for inhalation (Incruse Ellipta) valacyclovir 500 mg tablet 500 mg PO DAILY PRN Outbreak 12/18/19 04/15/20 Dulera 100 mcg inhalation BID 04/10/20 04/15/20 quetiapine 50 mg tablet (Seroquel) 50 mg PO QAM 04/10/20 04/15/20 acetaminophen 500 mg capsule 500 mg PO Q6H PRN 07/30/20 albuterol sulfate 5 mg/mL(0.5 %) 5 mg inhalation Q4H PRN 07/30/20 solution for nebulization cetirizine 10 mg tablet 10 mg PO DAILY 07/30/20 duloxetine 60 mg capsule,delayed 60 mg PO DAILY 07/30/20 release furosemide 40 mg tablet 40 mg PO QAM 07/30/20 gabapentin 800 mg tablet 800 mg PO TID 07/30/20 lamotrigine 150 mg tablet 150 mg PO BID 07/30/20 (Lamictal) montelukast 10 mg tablet 10 mg PO DAILY 07/30/20 (Singulair) omeprazole 40 mg capsule,delayed 40 mg PO DAILY 07/30/20 release spironolactone 25 mg tablet 25 mg PO DAILY 07/30/20 sulindac 200 mg tablet 200 mg PO BID 07/30/20 Allergies Allergy/AdvReac Type Severity Reaction Status Date / Time baclofen AdvReac Confusion Verified 10/12/23 11:19 Review of Systems Review of Systems: All systems reviewed & are unremarkable except as noted in HPI and below PMFSH Past Medical History Medical History (Updated 10/12/23 @ 15:41 by Yeyo Clancy MD) Adenoma of left adrenal gland Anxiety Bipolar 1 disorder COPD (chronic obstructive pulmonary disease) Dyspnea on exertion Gastric ulcer Genital herpes Gout Hepatitis C Hypertension Hyperthyroidism Pancreatitis PTSD (post-traumatic stress disorder) Rhinitis Substance abuse Surgical History Surgical History (Updated 07/30/20 @ 15:14 by Angelina Yusuf CMA) H/O lumpectomy H/O total hysterectomy History of biliary duct stent placement History of cholecystectomy History of subtotal thyroidectomy History of tonsillectomy Family History Family History (Updated 07/30/20 @ 15:22 by Angelina Yusuf CMA) Father , drowning 1979 No problems noted. Mother , 2013 unknown Hypertension Diabetes mellitus Ovarian cancer Sibling Hypertension Social History Social History Smoking status: Current every day smoker Alcohol intake: former Gender identity (if verbalized by the patient): Female Exam Narrative: APPEARANCE: Well appearing, no pain, no distress, well-nourished. HEAD: normocephalic, atraumatic. EYES: PERRLA/EOMI, conjunctivae clear. NOSE: Normal no drainage EARS:TMS clear with good light reflex. THROAT: Pharynx clear, no exudate. NECK: Supple. No adenopathy, no masses. RESPIRATORY: Airway patent, respirations nonlabored. Clear to auscultation bilaterally, no ral
[2023-10-12] MEDS: KETOROLAC 15 MG/ML VIAL (*BKC) IV PUSH (13:53)
[2023-10-12 14:41] LABS: Troponin I < 0.012 ng/mL (0.000-0.034)
[2023-10-12] MEDS: HYDROmorphone HCL INJ (*CRX) 1 MG/ML SYR 0.5 MG IV PUSH (15:29)
[2023-10-12 15:36] LABS: Influenza A QL RT-PCR Negative (Negative); Influenza B QL RT-PCR Negative (Negative); RSV RNA, RT-PCR Negative (Negative); SARS-CoV-2 RNA PCR Negative (Negative)
== END 2023-10-12 16:10 | disposition home or self-care (01) ==
PROVIDERS: Emergency Provider Emergency Medicine; PCP Internal Medicine
DX: R07.9 Chest pain, unspecified (principal); Z20.822 Contact with and (suspected) exposure to COVID-19; I50.9 Heart failure, unspecified; I11.0 Hypertensive heart disease with heart failure; J44.9 Chronic obstructive pulmonary disease, unspecified; E89.0 Postprocedural hypothyroidism; M10.9 Gout, unspecified; F41.9 Anxiety disorder, unspecified; F31.9 Bipolar disorder, unspecified; F43.10 Post-traumatic stress disorder, unspecified; F17.200 Nicotine dependence, unspecified, uncomplicated; Z86.19 Personal history of other infectious and parasitic diseases; Z90.710 Acquired absence of both cervix and uterus; Z90.49 Acquired absence of other specified parts of digestive tract; R94.31 Abnormal electrocardiogram [ECG] [EKG]
CPT/HCPCS: 36415; 71046; 80053; 83690; 84484; 85025; 85610; 85730; 87637; 93005; 96374; 96375; 99284; A9270; J1170; J1885

== ENCOUNTER 2024-12-20 17:14 | Emergency (ER) | payer OTHER, SELFPAY ==
--- NOTE | ~2024-12-20 | XR_ITS ---
EXAMINATION: XR wrist LT 2V DATE: 12/20/2024 18:10 INDICATION: Left wrist injury. Fall. TECHNIQUE: 2 views of left wrist were obtained. COMPARISON: Left thumb radiograph 05/14/2020 FINDINGS: Alignment is normal. No acute fracture. There is an old healed fracture of fifth metacarpal . There is mild osteoarthritis of triscaphe joint and severe osteoarthritis of first carpometacarpal joint. IMPRESSION: 1. Polyarticular osteoarthritis. Reviewed, dictated and finalized at location A. TYPE CLERK
--- NOTE | ~2024-12-20 | XR_ITS ---
EXAMINATION: XR shoulder LT min 2V DATE: 12/20/2024 18:09 INDICATION: Left arm pain. Fall. TECHNIQUE: 3 views of left shoulder were obtained. COMPARISON: Chest 2 views 10/12/2023 FINDINGS: There is chronic widening of acromioclavicular joint. No fracture. Glenohumeral joint is no rmal. IMPRESSION: 1. Chronic widening of acromioclavicular joint, which may be from distal clavicle resection or old ac romioclavicular separation. Reviewed, dictated and finalized at location A. ICAL EXERCISE SPECIALIST IMPRESSION: 1. Chronic widening of acromioclavicular joint, which may be from distal clavic le resection or old acromioclavicular separation.
--- NOTE | ~2024-12-20 | XR_ITS ---
EXAMINATION: XR elbow LT 2V DATE: 12/20/2024 18:10 INDICATION: Left arm pain. Fall. TECHNIQUE: 2 views of left elbow were obtained. COMPARISON: None. FINDINGS: Alignment is normal. No fracture. There is moderate elbow joint osteoarthritis. No elbow yessica int effusion. IMPRESSION: 1. Moderate elbow joint osteoarthritis. Reviewed, dictated and finalized at location A. VIORAL HEALTH COUNSELOR
[2024-12-20 17:18] VITALS: BP 172/151; PULSE 81; RESP 16; TEMP 36.4; O2SAT 100
--- OUTSIDE RECORDS SUMMARY | 2024-12-20 17:19 | XMS_ITS ---
Author Organization [facility] Address [address] [place] [address] Care Team Providers Care Ceramics Teacher Name Role Phone Marlon Anderson Primary Care Provider [phone] Macie Badillo [phone] REASON FOR VISIT last seen 10/14/23 Social History Sex Assigned At : Social History Observation Description Sex Assigned At Female Encounters Encounter Location Date Provider Diagnosis [address] [place] [address] 11/22/2024 Marlon Anderson Plan Of Treatment No Information Progress Notes * Constanza MARCOSaDOB:[birth year] (54 yo F)Acc No.[id number]:11/22/2024 UNLOCKED PROGRESS NOTE Progress Notes Patient:?Michelle MARCOS Provider:?Marlon Anderson :1970???Age:54 Y???Sex:Female D ate:11/22/2024 Address:[facility] [place] Subjective: * Chief Complaints: * ???1. Last seen 10/14/23. * Medical History:? Objective: * Vitals:? Assessment: Plan: * Treatment: * * Electronic signature of Analisa Anderson , [id number] on 12/20/2024 at 05:19 PM CASHIER HOST/HOSTESS Sign off status: Pending * Provider:?Marlon Anderson Date:? 5 Generated for Jarrod simmons/Iggy/Ambrose on:?12/20/2024 05:19 PM CASHIER HOST/HOSTESS
--- OUTSIDE RECORDS SUMMARY | 2024-12-20 17:19 | XMS_ITS ---
Author Organization [facility] Address [address] [place] [address] Care Team Providers Care Conflict Resolution Professional Name Role Phone Marlon Anderson Primary Care Provider [phone] Macie Badillo Unavailable [phone] Bianka Maya Unavailable [phone] REASON FOR VISIT Case Management Social History Sex Assigned At : Social History Observation Description Sex Assigned At Female Encounters Encounter Location Date Provider Diagnosis [address] [place] [address] 11/09/2023 Bianka Maya Plan Of Treatment No Information Progress Notes * Constanza MARCOSaDOB:[birth year] (53 yo F)Acc No.[id number]:11/09/2023 Patient:?Michelle MARCOS Provider:?Bianka Maya LCSW :1970???Age:53 Y???Sex:Female D ate:11/09/2023 Address:[address] [place], [place] [id number] Pcp:Marlon Anderson Subjective: * Chief Complaints: * HPI: ???Initial:?Issues discussed:?Issues discussed: .pt discussed reconnecting with sales coach, patient discussed needing food.? Strengths: .patient is willing to ask for resources.? ? ? Goal/Objective: .to get pantry resources, and to get her food/sales coach connection and MAT service information.? Counselor's action: .counselor gave patient food from the [facility], and gave her information on the MAT program. Also gave pt information on recovery coaches and how they can connect with her.? Patient's response: ...?Strengths:?..?Goal/Objective:?..?Counselor's action:?..?Patient's response:?..? Objective: Assessment: Plan: * Treatment: * Procedure Codes:?T1016 CASE MANAGEMENT EACH 15 MINS * Care Plan Details* * LATION NOZZLEMAN Sign off status: Completed true * Provider:?Biakna Maya LCSW Date: ?11/09/2023 Generated for Jarrod simmons/Iggy/Ambrose on:?12/20/2024 05:19 PM INSULATION NOZZLEMAN History and Physical Notes * HPI (History of Present Illness) Category Sub-Category Detail Notes Category Not es Initial Issues discussed: Issues discuss ed: .pt discussed reconnecting with sales coach, patient discussed needing food. Strengths: .patient is willing to ask for resources. Goal/Objective: .to get pantry resources, and to get her food/sales coach connection and MAT service information. Counselor's action: .counselor gave patient food from the [employer], and gave her information on the MAT program. Also gave pt information on recovery coaches and how they can connect with her. Patient's response: .. Goal/Objective: . Counselor's action: . Patient's response: . Strengths: .
--- OUTSIDE RECORDS SUMMARY | 2024-12-20 17:19 | XMS_ITS | Clinical Summary ---
Author Organization [facility] Address [facility] [place] [address] [place] [address] Care Team Providers Care Mammographer Name Role Phone Marlon Anderson MD Primary Care Provider [phone] Allergies Active Allergy Reactions Criticality Noted Date Comments Baclofen Dizziness,Other (see comment) Low 11/12/2020 Severe weakness/falls. Forgetfull loopy Medications magnesium oxide 400 (241.3 Mg) MG tablet Take 1 tablet (400 mg total) by mouth daily. 0 Active Senna 8.6 MG tablet Take 1 tablet (8.6 mg total) by mouth 2 (two) times daily as needed for Constipation. 0 Active fluticasone propionate 50 MCG/ACT nasal spray 1 spray by Each Nostril route daily. 0 Active lithium CR 450 MG tablet Take 1 tablet (450 mg total) by mouth 2 (two) times a day. 0 Active rOPINIRole 4 MG tablet Take 2 tablets (8 mg total) by mouth nightly. 0 Active cetirizine 10 MG tablet Take 1 tablet (10 mg total) by mouth daily. 0 Active INCRUSE ELLIPTA 62.5 MCG/INH AEROSOL POWDER, BREATH ACTIVATED Inhale 1 puff into the lungs daily. 0 Active furosemide 40 MG tablet Take 1 tablet (40 mg total) by mouth 2 (two) times daily. 0 Active acetaminophen 500 MG tablet Take 1 tablet (500 mg total) by mouth every 6 (six) hours as needed for Pain. Active albuterol sulfate HFA 108 (90 Base) MCG/ACT inhaler Inhale 2 puffs into the lungs every 4 (four) hours as needed for Wheezing or Shortness of breath. Active albuterol (2.5 MG/3ML) 0.083% nebulizer solution Take 3 mLs (2.5 mg total) by nebulization every 4 (four) hours as needed for Wheezing. Active melatonin 3 MG tablet Take 2 tablets (6 mg total) by mouth nightly as needed (Insomnia). Active ASPIRIN LOW DOSE 81 MG tablet Take 1 tablet (81 mg total) by mouth daily. 3 Active atorvastatin (LIPITOR) 40 MG tablet Take 1 tablet (40 mg total) by mouth daily. 3 Active estradiol (ESTRACE) 0.1 MG/GM vaginal cream Place vaginally daily. 3 Active famotidine (PEPCID) 40 MG tablet Take 1 tablet (40 mg total) by mouth daily. 3 Active hydrOXYzine (VISTARIL) 50 MG capsule Take 1 capsule (50 mg total) by mouth 3 (three) times daily as needed. 3 Active paliperidone ER (INVEGA) 1.5 MG 24 hr tablet Take 1 tablet (1.5 mg total) by mouth every morning. 3 Active potassium chloride CR (KLOR-CON M) 20 MEQ tablet Take 1 tablet (20 mEq total) by mouth daily. Active promethazine-de xtromethorphan (PROMETHAZINE-D M) 6.25-15 mg/5mL syrup Take 5 mLs by mouth every 6 (six) hours as needed for Cough. 3 Active sucralfate (CARAFATE) 1 G tablet Take 1 tablet (1 g total) by mouth 2 (two) times daily before meals. 3 Active topiramate (TOPAMAX) 100 MG tablet Take 1 tablet (100 mg total) by mouth 2 (two) times daily. 3 Active gabapentin (NEURONTIN) 800 MG tablet Take 1 tablet (800 mg total) by mouth 2 (two) times daily. Active lamoTRIgine (LAMICTAL) 200 MG tablet Take 1 tablet (200 mg total) by mouth daily. 3 Active omeprazole (PRILOSEC) 40 MG capsule Take 1 capsule (40 mg total) by mouth daily. Active valACYclovir (VALTREX) 1 g tablet Take 1 tablet (1,000 mg total) by mouth daily. Active Active Problems Problem Noted Date Diagnosed Date Sepsis ([facility]) 09/24/2023 Epigastric pain 09/24/2023 Overview (09/27/2023): Added automatically from request for surgery Abnormal findings on diagnos tic imaging of liver and biliary tract 09/24/2023 Overview (09/27/2023): Added automatically from request for surgery Acute respiratory failure with hypoxia ([facility]) 09/05/2020 Immunizations Name Administration Dates Next Due Fluzone 6 Months+ Quad (0.5 mL Prefilled Syringe) 09/29/2023(Deferred: Patient/family declined) Family History Medical History Relation Comments No Known Problems Father Colon Cancer Maternal Grandfather CHF Maternal Grandmother No Known Problems Mother Relation Status Comments Father Maternal Grandfather Maternal Grandmother Mother Social History Tobacco Use Types Packs/Day Years Used Date Smoking Tobacco: Every Day Cigarettes 1 20 Smokeless Tobacco: Never Tobacco Cessation:Ready to Q uit: Not Asked; Counseling Given: Not Answered Alcohol Use Standard Drinks/Week Comments Not Currently 0 (1 standard drink = 0.6 oz pur e alcohol) Giles Comments No Sex and Gender Information Value Date Recorded Sex Assigned at Not on file Legal Sex Female 5:02 PM CDT Gender Identity Not on file Sexual Orientation Not on file Last Filed Vital Signs Vital Sign Reading Time Taken Comments Blood Pressure 131/78 09/29/2023 7:52 AM MALE MODEL Pulse 71 09/29/2023 7:52 AM MALE MODEL Temperature 37.1 ??C (98.8 ??F) 09/29/2023 7:52 AM CS T Respiratory Rate 20 09/29/2023 7:52 AM MALE MODEL Oxygen Saturation 100% 09/29/2023 7:52 AM MALE MODEL Inhaled Oxygen Concentration - - Weight 71.2 kg (156 lb 15.5 oz) 09/29/2023 5:30 AM MALE MODEL Height 170.2 cm (5' 7 ) 09/24/2023 6:15 PM CDT Body Mass Index 24.58 09/24/2023 6:15 PM CDT Plan of Treatment Health Maintenance Due Date Last Done Comments Colorectal Cancer Screening Colonoscopy (10 Years) 1971 Annual Physical 1974 Pneumococcal Vaccine: Pediatrics (0 to 5 Years) and At-Risk Patients (6 to 64 Years) (1 of 2 - PCV) 1977 DTaP, Tdap and Td Vaccines ( 1 - Tdap) 1990 Hepatitis B Vaccines (1 of 3 - 19+ 3-dose series) 1990 Mammogram Screening 2011 Zoster Vaccines (1 of 2) 2021 COVID-19 Vaccine (1 - 2023-2 5 season) 2024 Influenza Adult (#1) 2024 09/04/2020 Hepatitis C Completed 09/25/2023, 09/24/2023 Meningococcal B Vaccine Aged Out No l onger eligible based on patient's age to complete this topic Meningococcal Vaccine Aged Out No brandon natalie eligible based on patient's age to complete this topic RSV Immunizations Under 20 Months Aged Out No longer eligible b ased on patient's age to complete this topic Procedures Procedure Name Priority Date/Time Associated Diagnosis Comments HEPATITIS C RNA W/ REFLX GENOTYPE Routine 09/25/2023 2:20 PM MALE MODEL from Last 3 Months or Most Recently Relevant to Health Maintenance Results * HEPATITIS C RNA W/ REFLX GENOTYPE (09/25/2023 2:20 PM MALE MODEL) HEPATITIS C RNA PCR QNT <15 IU/mL 09/27/2023 3:38 PM MALE MODEL [email or web address] CHARISSA ARNOLD Comment: HCV RNA Not Detected HEP C RNA PCR QNT LOG <1.18 log IU/mL 09/27/2023 3:38 PM MALE MODEL [facility] CHARISSA ARNOLD Comment: HCV RNA Not Detected Reference Range: ?Not Detected ? IU/mL ?Not Detected ?? Log IU/mL This test was performed using Real-Time Polymerase Chain Reaction. Reportable range is 15 IU/mL to 100,000,000 IU/mL (1.18 Log IU/mL to 8.00 Log IU/mL). For additional information please refer to http://education.[employer].Upower/faq/WRX26m0 (This link is being provided for informational/ educational purposes only.) The analytical performance characteristics of this assay have been determined by [place], [place]. ??The modifications have not been cleared or approved by the FDA. ??This assay has been validated pursuant to the CLIA regulations and is used for clinical purposes. Test Performed by [facility], [facility], [address] [place], [place] Tj Griffith M.D., Ph.D., Director of Laboratories , CLIA [id number] 09/25/2023 2:20 PM MALE MODEL Alek Shell DO LABORATORY Final Result [employer] [place] [id number] [place] [address], from Last 3 Months or Most Recently Relevant to Health Maintenance Insurance [place] Advance Directives * Full Code (Latest Code Status on File) Date Activated Date Inactivated Comments 09/24/2023 9:18 PM 09/29/2023 12:21 PM * Full Code Date Activated Date Inactivated Comments 09/05/2020 3:14 PM 09/09/2020 5:05 PM Care Teams Mammographer Relationship Specialty Start Date End Date Marlon Anderson MD [address] [facility] [address] [place] [id number] PCP - General INTERNAL MEDICINE 09/05/20
--- OUTSIDE RECORDS SUMMARY | 2024-12-20 17:20 | XMS_ITS | Continuity of Care Document ---
Author Organization [facility] Address [address] [facility] [address] [place] [address] Phone Care Team Providers Care Stretching Press Operator Name Role Phone Sammy Hodgson MD Unavailable Unavailable Advance Directives Directive Yes / No Effective Date File Name No Information Encounters Encounter Description Practice Location Reason(s) For Visit Diagnoses Date Provider Providers Copied on Encounter [facility] , [address] [facility] [address] [facility] [address], [place], [address], [place] tel:[phone] [facility] No Information 3 Rema Christianson. [address] [facility] [address] [place], [id number] . tel:[phone] Family History Family Member Type Diagnosis Age At Onset No Information Payers Payer name Insurance type Covered libertarian ID Authoriza tion(s) No Information Social History Type Description Quantity Date Captured Comments Sex Female Smoking Status No Information Chief Complaint And Reason For Visit No Information Reason For Referral Reason For Referral No Information History Of Present Illness Encounter Date Complaint History Of Prese nt Illness No Information Functional Status Date Functional Assessmen t No Information Instructions Date Instruction Additional Infor mation No Information Assessments Type Assessment Date No Information Patient Care Teams Name Effective Dates (start - stop) Status Members No Information
--- OUTSIDE RECORDS SUMMARY | 2024-12-20 17:20 | XMS_ITS | Clinical Summary ---
Author Organization [facility] Address [address] [place] [address] Care Team Providers Care Hand Bander Name Role Phone Marlon Anderson MD Primary Care Provider [phone] Allergies Active Allergy Reactions Criticality Noted Date Comments Baclofen Dizziness,Other (See comments) Low 11/12/2020 Severe weakness/falls falls Medications celecoxib (CeleBREX) 200 mg capsule Take 200 mg by mouth daily Active DULoxetine DR (CYMBALTA) 60 mg capsule Take 60 mg by mouth daily Active lamoTRIgine (LaMICtal) 150 mg tablet Take 150 mg by mouth daily Active valACYclovir (VALTREX) 500 mg tablet Take 500 mg by mouth daily Active gabapentin (NEURONTIN) 800 mg tablet Take 800 mg by mouth 2 (two) times a day Active lithium ER (ESKALITH) 450 mg CR tablet Take 450 mg by mouth 2 (two) times a day Active omeprazole (PriLOSEC) 40 mg capsule Take 40 mg by mouth daily Active rOPINIRole (REQUIP) 4 mg tablet Take 8 mg by mouth nightly Active umeclidinium (INCRUSE ELLIPTA) 62.5 mcg/actuation blister with device Inhale 62.5 mcg daily Active melatonin tablet Take 6 mg by mouth nightly as needed for sleep Active senna 8.6 mg tablet Take 1 tablet by mouth 2 (two) times a day 12/01/2021 Active magnesium oxide (MAG-OX) 400 mg (241.3 mg elemental magnesium) tablet Take 400 mg by mouth daily 10/09/2021 Active cetirizine (ZyrTEC) 10 mg tablet Take 10 mg by mouth daily 10/27/2021 Active furosemide (LASIX) 40 mg tablet Take 1 tablet (40 mg total) by mouth 2 (two) times a day 60 tablet 1 12/26/2021 Active HYDROcodone-rita taminophen (NORCO) 5-325 mg per tabletIndicatio ns:Pain Take 1-2 tablets by mouth every 6 (six) hours as needed for pain 50 tablet 06/03/2022 Active azithromycin (Zithromax Z-Jose) 250 mg tablet Take 1 tablet (250 mg total) by mouth daily Take first 2 tablets together, then 1 every day until finished. 6 tablet 09/16/2023 Active predniSONE (DELTASONE) 20 mg tablet 3 PO QD x3 days then 2 PO QD x3 days then 1 PO QD x 3 days then stop 18 tablet 09/23/2023 Active albuterol HFA (PROVENTIL HFA,VENTOLIN HFA,PROAIR HFA) 90 mcg/actuation inhaler Inhale 2 puffs every 4 (four) hours as needed for wheezing 8.5 g 09/23/2023 Active promethazine-DM (PROMETHAZINE-D M) 1.25-3 mg/mL syrup Take 5 mL by mouth 4 (four) times a day as needed for cough 118 mL 09/23/2023 Active meloxicam (MOBIC) 7.5 mg tablet Take 1 tablet (7.5 mg total) by mouth daily as needed for pain for up to 15 days 15 tablet 09/23/2023 Active Active Problems Problem Noted Date Diagnosed Date Metabolic syndrome 06/20/2023 Arthritis of carpometacarpal (CMC) joint of left thumb 06/20/2023 Right wrist pain 06/20/2023 Abnormal cervical Papanicolaou smear 07/12/2022 Acute diastolic heart failure (CMS/HCC) 07/12/20 Alcohol-induced psychosis 07/12/2022 Atrophic vaginitis 07/12/2022 Chronic pain 07/12/2022 Dysuria 07/12/2022 Edema of lower extremity 07/12/2022 Fibrocystic breast changes 07/12/2022 Hyperlipidemia 07/12/2022 Irritable bowel syndrome with constipation 07/12 Migraine without aura, not refractory 07/12/2022 Nicotine dependence 07/12/2022 Obstruction of bile duct 07/12/2022 Obstructive sleep apnea syndrome 07/12/2022 Pain in right knee 07/12/2022 Pruritus of vagina 07/12/2022 Restless legs syndrome 07/12/2022 Sciatica 07/12/2022 Sprain of deltoid ligament of right ankle 2021 Tension headache 07/12/2022 Vaginal candidiasis 07/12/2022 Wound of skin 07/12/2022 Neuritis of right sural nerve 05/20/2022 Overview (05/20/2022): Added automatically from request for surgery [id number] Cellulitis of right upper extremity 12/18/2021 Bipolar 1 disorder 12/18/2021 HTN (hypertension) 12/18/2021 Peripheral neuropathy 12/18/2021 GERD without esophagitis 12/18/2021 Acute back pain less than 4 weeks duration 07/29 Anxiety with somatization 07/29/2021 Body mass index (BMI) of 30.0-30.9 in adult 06/2021 Candidiasis of mouth 07/29/2021 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 07/29/2021 Anxiety with depression 07/29/2021 Dyspnea in pediatric patient 07/29/2021 Edema 07/29/2021 Has used tobacco within prior three months 07/29 Hernia of anterior abdominal wall 07/29/2021 Pericardial effusion with cardiac tamponade 06/2021 Postoperative pain 07/29/2021 Well child examination 07/29/2021 Closed displaced fracture of scaphoid bone of ri ght wrist 05/13/2021 Overview (05/13/2021): Added automatically from request for surgery [id number] Closed displaced fracture of middle third of scaphoid of right wrist with routine healing 05/13/2021 Atherosclerotic heart diseas e of [place] coronary artery without angina pectoris 01/12/2021 Acute respiratory failure with hypoxia (CMS/HCC) 09/05/2020 Asthma 03/03/2020 Pain in left foot 11/10/2017 Acute viral hepatitis 08/16/2015 Cellulitis of finger of right hand Surgical History Surgery Date Site/Laterality Comments HYSTERECTOMY ORIF SCAPHOID W VASCULARIZED BONE GRAFT 05/26/2021 R ight RT.SCAPHOID ORIF CHOLECYSTECTOMY TOTAL THYROIDECTOMY THROAT SURGERY nodules excision HAND SURGERY 06/03/2022 Right RT.PRC Medical History Medical History Date Comments Depression Peripheral neuropathy Hypertension Asthma COPD (chronic obstructive pulmonary disease) (HC C) GERD (gastroesophageal reflux disease) Restless leg syndrome Neuropathy (CMS/HCC) Hiatal hernia Bipolar disorder (HCC) Obesity Thyroid disease Pneumonia Family History Medical History Relation Name Comments No Known Problems Father No Known Problems Mother Relation Name Status Comments Father Mother Social History Tobacco Use Types Packs/Day Years Used Date Smoking Tobacco: Every Day Cigarettes 1 20 Smokeless Tobacco: Current Tobacco Cessation:Ready to Q uit: No Alcohol Use Standard Drinks/Week Comments Yes 4 (1 standard drink = 0.6 oz pur e alcohol) AUDIT-C Answer Date Recorded Q1: How often do you have a drink containing alc ohol? Never 06/03/2022 Average Number of Drinks Not on file 022 Frequency of Binge Drinking Not on file 05/21 Personal Safety Answer Date Recorded Have you ever been in or are you currently in a harmful physical or emotional relationship or is someone making you feel afraid or unsafe? Yes 03/27/2024 Comments No Sex and Gender Information Value Date Recorded Sex Assigned at Not on file Legal Sex Female 12:57 PM SEARCH OPTIMIZATION ANALYST Gender Identity Not on file Sexual Orientation Not on file Obstetrics History Last Filed Vital Signs Vital Sign Reading Time Taken Comments Blood Pressure 140/93 03/27/2024 12:14 PM CDT Pulse 82 03/27/2024 12:14 PM CDT Temperature 37.1 ??C (98.8 ??F) 03/27/2024 9:27 AM CD T Respiratory Rate 18 03/27/2024 12:14 PM CDT Oxygen Saturation 98% 03/27/2024 12:14 PM CDT Inhaled Oxygen Concentration - - Weight 63.5 kg (140 lb) 03/27/2024 9:27 AM CDT Height 170.2 cm (5' 7 ) 03/27/2024 9:27 AM CDT Body Mass Index 21.93 03/27/2024 9:27 AM CDT Plan of Treatment Health Maintenance Due Date Last Done Comments Breast Cancer Screening-Mammogram 1971 Colon Cancer Screening-Colonoscopy 1971 Depression Screening 1971 Pneumococcal vaccine <65 (1 of 2 - PCV) 1977 DTaP/Tdap/Td Vaccine (1 - Tdap) 1982 Regular Well Visit/Exam 18-64 1989 Zoster Vaccine (1 of 2) 2021 Covid-19 Vaccine (4 - 2023-2 5 season) 2024 09/30/2022, 12/18/2020, 11/20/2020 Influenza Vaccine (#1) 2024 , 09/04/2020, 12/30/2014 Hepatitis C Screening Completed 12/25/2021 , 12/05/2017, 11/29/2017, Additional history exists Hepatitis B Screening Completed 12/27/2022 Medical Devices Explanted Type Area Contact Lens Edge Buffer Device Identifier Shelf Expiration Date Model / Serial / Lot Screw Bone 3mm 4.3mm 22mm Mini Implanted:Qty: 1 on 05/26/2021 by Corky Camilo MD at [facility] Explanted:Qty: 1 on 06/03/2022 by Corky Camilo MD at [facility] Right: Wrist [employer] [id number] / / Procedures Procedure Name Priority Date/Time Associated Diagnosis Comments HEPATITIS C ANTIBODY Routine 12/25/2021 3:26 PM SEARCH OPTIMIZATION ANALYST from Last 3 Months or Most Recently Relevant to Health Maintenance Results * (ABNORMAL) Hepatitis C antibody (12/25/2021 3:26 PM SEARCH OPTIMIZATION ANALYST) Hep C Ab Reactive( A) Nonreactive [facility] Comment: Interpretive Data Nonreactive: Antibodies to HCV not detected. Does NOT exclude the possibility of recent exposure to HCV. Equivocal: Equivocal for HCV antibodies. Supplemental molecular testing will be automatically performed to determine infection status in accordance with current CDC screening recommendations. ?? Reactive: Positive for HCV antibodies. ??This may represent current or past HCV infection. Supplemental molecular testing will be automatically performed to determine ??current infection status in accordance with current CDC screening recommendations. Interpretive data was last revised on 2020. Blood 12/25/2021 3:26 PM SEARCH OPTIMIZATION ANALYST 12/25/2021 3:31 PM SEARCH OPTIMIZATION ANALYST us Price Ireland MD LAB MICROBIOLOGY - GENERAL O RDERABLES Final Result [facility] [address] [facility] Department [place] [address] from Last 3 Months or Most Recently Relevant to Health Maintenance Insurance [facility] Advance Directives For more information, please contact: [phone] * Full Code (Latest Code Status on File) Date Activated Date Inactivated Comments 12/18/2021 10:59 PM 12/26/2021 9:28 PM Care Teams Hand Bander Relationship Specialty Start Date End Date Marlon Anderson MD [address] [place] [address] [place] [address] PCP - General Internal Medicine 11/24/22
--- OUTSIDE RECORDS SUMMARY | 2024-12-20 17:20 | XMS_ITS | Referral Summary ---
Author Organization [facility] Address [address] [place] [address] Care Team Providers Care Editor In Chief Newspaper Name Role Phone Marlon Anderson MD Primary Care Provider [phone] Allergies Active Allergy Reactions Criticality Noted Date [...] (05/20/2022): Added automatically from request for surgery [id number] Cellulitis of right upper extremity 12/18/2021 Bipolar [...] (05/13/2021): Added automatically from request for surgery [id number] Closed displaced fracture of middle third of scaphoid of right wrist with routine healing 05/13/2021 Atherosclerotic heart diseas e of [place] coronary artery without angina pectoris 01/12/2021 Acute respiratory failure with hypoxia (CMS/HCC) 09/05/2020 Asthma 03/03/2020 Pain in left foot 11/10/2017 Acute viral hepatitis 08/16/2015 Cellulitis of finger of right hand Social History Tobacco Use Types Packs/Day Years [...] on file Legal Sex Female 12:57 PM CONCRETE BUCKET UNLOADER Gender Identity Not on file Sexual Orientation [...] 03/27/2024 9:27 AM CDT Plan of Treatment Not on file Medical Devices Explanted Type Area Aircraft Rigging And Controls Mechanic Device Identifier Shelf Expiration Date Model / Serial / Lot Screw Bone 3mm 4.3mm 22mm Mini Implanted:Qty: 1 on 05/26/2021 by Corky Camilo MD at [facility] Explanted:Qty: 1 on 06/03/2022 by Corky Camilo MD at [facility] Right: Wrist [employer] [id number] / / Procedures Procedure Name Priority Date/Time Associated Diagnosis Comments HEPATITIS C ANTIBODY Routine 12/25/2021 3:26 PM CONCRETE BUCKET UNLOADER from Last 3 Months or Most Recently Relevant to Health Maintenance Results * (ABNORMAL) Hepatitis C antibody (12/25/2021 3:26 PM CONCRETE BUCKET UNLOADER) Hep C Ab Reactive( A) Nonreactive [facility] Comment: Interpretive Data Nonreactive: Antibodies to HCV [...] revised on 2020. Blood 12/25/2021 3:26 PM CONCRETE BUCKET UNLOADER 12/25/2021 3:31 PM CONCRETE BUCKET UNLOADER us Price Ireland MD LAB MICROBIOLOGY - GENERAL O RDERABLES Final Result [facility] [address] [facility] [place] [address] from Last 3 Months or Most Recently Relevant to Health Maintenance Insurance [facility] Advance Directives For more information, please contact: [phone] * Full Code (Latest Code Status on File) Date Activated Date Inactivated Comments 12/18/2021 10:59 PM 12/26/2021 9:28 PM Care Teams Editor In Chief Newspaper Relationship Specialty Start Date End Date Marlon Anderson MD [address] [place] [address] PCP - General Internal Medicine 11/24/22
--- OUTSIDE RECORDS SUMMARY | 2024-12-20 17:20 | XMS_ITS ---
Author Organization [facility] Address [address] [place] [address] Care Team Providers Care Labeling Machine Operator Name Role Phone Marlon Anderson Primary Care Provider [phone] Macie Badillo [phone] REASON FOR VISIT last seen 10/14/23 Social History Sex Assigned At : Social History Observation Description Sex Assigned At Female Encounters Encounter Location Date Provider Diagnosis [address] [place] [address] 11/28/2024 Marlon Anderson Plan Of Treatment No Information Progress Notes * Constanza MARCOSaDOB:[birth year] (54 yo F)Acc No.[id number]:11/28/2024 UNLOCKED PROGRESS NOTE Progress Notes Patient:?Michelle MARCOS Provider:?Marlon Anderson :1970???Age:54 Y???Sex:Female D ate:11/28/2024 Address:[facility] [place] Subjective: * Chief Complaints: * ???1. Last seen 10/14/23. * Medical History:? Objective: * Vitals:? Assessment: Plan: * Treatment: * * Electronic signature of Analisa Anderson , [id number] on 12/20/2024 at 05:19 PM DISPATCHER MAINTENANCE SERVICE Sign off status: Pending * Provider:?Marlon Anderson Date:? 5 Generated for Jarrod simmons/Iggy/Ambrose on:?12/20/2024 05:19 PM DISPATCHER MAINTENANCE SERVICE
--- OUTSIDE RECORDS SUMMARY | 2024-12-20 17:20 | XMS_ITS | CONTINUITY OF CARE DOCUMENT ---
Author Name cece zhao Address Unknown Organization [facility] Address [address] [place] [address] [address] [place] [address] Phone [phone] Care Team Providers Care Motor Pool Driver Name Role Phone Ger Lane MD Unavailable ROSA GONSALES MD Unavailable INSURANCE PROVIDERS Payer name Policy type / Coverage type Fifi red alliance party ID GUTIERREZ MEDICAID Medicaid [id number]
--- NOTE | 2024-12-20 18:19 | ED_ITS ---
HPI - Fall General Chief Complaint: Fall Stated Complaint: L arm pain from glf Time Seen by Provider: 12/20/24 18:16 Source: patient Mode of arrival: ambulatory Limitations: no limitations History of Present Illness HPI Narrative: This is a 54-year-old female who presents to the ED for chief complaint of fall with left upper extremity injury. Patient reports that she was outside the [facility] when she slipped on the ice and fell directly onto her left side. Patient is revealing system something must be broken. She admits to chronic use in the past states that she has some is otherwise she denies any sites of pain or injury. Denies numbness, weakness. Related Data Home Medications ?Medication ?Instructions ?Recorded ?Confirmed ?Last Taken ?Type duloxetine 60 mg capsule,delayed 60 mg PO DAILY 12/18/19 04/15/20 12/25/19 05:00 History release fluticasone propionate 50 1 spray intranasal BID 12/18/19 04/15/20 Unknown Hi story mcg/actuation nasal spray,suspension lamotrigine 50 mg tablet,extended 50 mg PO DAILY 12/18/19 04/15/20 12/25/19 05:00 History release 24 hr lithium carbonate 450 mg 450 mg PO BID 12/18/19 04/15/20 12/25/19 05:00 History tablet,extended release nicotine 21 mg/24 hr daily 1 patch transdermal DAILY 12/18/19 04/15/20 Unknown History transdermal patch omeprazole 40 mg capsule,delayed 40 mg PO DAILY 12/18/19 04/15/20 Unknown History release quetiapine 300 mg tablet 300 mg PO HS 12/18/19 04/15/20 Unknown History ropinirole 8 mg tablet,extended 8 mg PO HS 12/18/19 04/15/20 Unknown History release 24 hr umeclidinium 62.5 mcg/actuation 1 inh inhalation DAILY 12/18/19 04/15/20 Unknown History blister powder for inhalation (Incruse Ellipta) valacyclovir 500 mg tablet 500 mg PO DAILY PRN Outbreak 12/18/19 04/15/20 Unknown History Dulera 100 mcg inhalation BID 04/10/20 04/15/20 04/10/20 08:00 History quetiapine 50 mg tablet (Seroquel) 50 mg PO QAM 04/10/20 04/15/20 04/10/20 History acetaminophen 500 mg capsule 500 mg PO Q6H PRN 07/30/20 Unknown History albuterol sulfate 5 mg/mL(0.5 %) 5 mg inhalation Q4H PRN 07/30/20 Unknown History solution for nebulization cetirizine 10 mg tablet 10 mg PO DAILY 07/30/20 Unknown History duloxetine 60 mg capsule,delayed 60 mg PO DAILY 07/30/20 Unknown History release furosemide 40 mg tablet 40 mg PO QAM 07/30/20 Unknown History gabapentin 800 mg tablet 800 mg PO TID 07/30/20 Unknown History lamotrigine 150 mg tablet 150 mg PO BID 07/30/20 Unknown History (Lamictal) montelukast 10 mg tablet 10 mg PO DAILY 07/30/20 Unknown History (Singulair) omeprazole 40 mg capsule,delayed 40 mg PO DAILY 07/30/20 Unknown History release spironolactone 25 mg tablet 25 mg PO DAILY 07/30/20 Unknown History sulindac 200 mg tablet 200 mg PO BID 07/30/20 Unknown History Allergies Allergy/AdvReac Type Severity Reaction Status Date / Time baclofen AdvReac Confusion Verified 12/20/24 17:16 Review of Systems Review of Systems: All systems as dictated in [facility] Past Medical History Medical History (Updated 12/21/24 @ 00:00 by Beena Rider) Rhinitis Genital herpes Substance abuse Dyspnea on exertion Gout PTSD (post-traumatic stress disorder) Adenoma of left adrenal gland Pancreatitis Gastric ulcer Anxiety Hepatitis C Bipolar 1 disorder Hyperthyroidism COPD (chronic obstructive pulmonary disease) Hypertension Surgical History Surgical History (Updated 07/30/20 @ 15:14 by Angelina Yusuf CMA) H/O total hysterectomy History of subtotal thyroidectomy History of tonsillectomy History of biliary duct stent placement History of cholecystectomy H/O lumpectomy Family History Family History (Updated 07/30/20 @ 15:22 by Angelina Yusuf CMA) Father , drowning 1979 No problems noted. Mother , 2013 unknown Hypertension Diabetes mellitus Ovarian cancer Sibling Hypertension Social History Social History Smoking status: Current every day smoker Alcohol intake: former Gender identity (if verbalized by the patient): Female Exam Narrative: GENERAL: Well-appearing, well-nourished, and in no acute distress. HEAD: Normocephalic, atraumatic. EYES: PERRLA and EOMI. ENT: Nares clear, no rhinorrhea or epistaxis. Mucous membranes moist. Oropharynx without tonsillar hypertrophy exudate or other lesions. NECK: Supple. No adenopathy or masses. CHEST: No respiratory distress. Clear to auscultation. No wheezes rales or rhonchi HEART: Regular rate and rhythm. No murmur heard. Normal peripheral pulses. ABDOMEN: Soft, nontender, nondistended, normal active bowel sounds. MSK: Normal range of motion. No edema. Mild tenderness to the left anatomic snuffbox. Neurovascular intact distally. SKIN: Warm, dry, no rash. NEURO: Alert and oriented x4. No focal deficits. PSYCH: Normal mood and affect. Course Course Emergency Course: Prior to discharge, patient is demanding to myself and nursing staff to give her narcotic pain medications here. She made physically threatening statements to our nursing staff when she was informed she would not be receiving narcotics and was escorted out by security Vital Signs Vital signs: Vital Signs Temperature 97.6 F 12/20/24 17:18 Pulse Rate 81 12/20/24 17:18 Respiratory Rate 16 12/20/24 17:18 Blood Pressure 172/151 H 12/20/24 17:18 Pulse Oximetry 100 12/20/24 17:18 Temperature 97.6 F 12/20/24 17:18 Pulse Rate 81 12/20/24 17:18 Respiratory Rate 16 12/20/24 17:18 Blood Pressure 172/151 H 12/20/24 17:18 Pulse Oximetry 100 12/20/24 17:18 MDM - Fall MDM Narrative Medical decision making narrative: This is a 54-year-old female who presents to the ED for chief complaint of fall with left wrist injury. Vitals show elevated blood pressure. Otherwise vitals are normal. Exam remarkable for the above. She has mild anatomical snuffbox tenderness on exam. Imaging of the left wrist, left elbow and left shoulder are negative for acute findings. Patient was put in a thumb spica splint. Rx for Toradol given. Referral for Orthopedics given. Patient will be discharged in stable condition. Supportive measures discussed and return precautions given. Patient is understanding and agreeable with plan for discharge with PCP follow-up. Discharge Plan Discharge Clinical Impression: Arthralgia of wrist, left Patient Disposition: Home, Self-Care Condition: Stable Instructions: Antibiotic Form Additional Instructions: Your exam and imaging are reassuring. Please use splint as directed, until otherwise directed by Orthopedics. Follow up with orthopedics for the wrist. Use Toradol for your wrist arthritis. If you have any new or worsening symptoms please return to the ER for further evaluation. Patient Language: Persian Prescriptions: New ketorolac 10 mg tablet 10 mg PO Q8H PRN (Reason: pain) Qty: 15 0RF Rx Instructions: maximum total duration of 5 days from all oral, intranasal, or parenteral formulations No Action quetiapine [Seroquel] 50 mg Tablet 50 mg PO QAM Rx Instructions: 50 mg orally Dulera aerosol 100 mcg inhalation BID quetiapine 300 mg tablet 300 mg PO HS valacyclovir 500 mg tablet 500 mg PO DAILY PRN (Reason: Outbreak) omeprazole 40 mg capsule,delayed release(DR/EC) 40 mg PO DAILY lithium carbonate 450 mg Tablet Extended Release 450 mg PO BID nicotine 21 mg/24 hr patch 24 hour 1 patch transdermal DAILY fluticasone propionate 50 mcg/actuation spray,suspension 1 spray INTRANASAL BID duloxetine 60 mg capsule,delayed release(DR/EC) 60 mg PO DAILY ropinirole 8 mg Tablet Extended Release 24 Hr 8 mg PO HS lamotrigine 50 mg Tablet Extended Release 24hr 50 mg PO DAILY Incruse Ellipta 62.5 mcg/actuation blister with device 1 inh INHALATION DAILY albuterol sulfate 5 mg/mL solution for nebulization 5 mg INHALATION Q4H PRN montelukast [Singulair] 10 mg tablet 10 mg PO DAILY duloxetine 60 mg capsule,delayed release(DR/EC) 60 mg PO DAILY acetaminophen 500 mg capsule 500 mg PO Q6H PRN lamotrigine [Lamictal] 150 mg tablet 150 mg PO BID gabapentin 800 mg tablet 800 mg PO TID cetirizine 10 mg tablet 10 mg PO DAILY sulindac 200 mg tablet 200 mg PO BID omeprazole 40 mg capsule,delayed release(DR/EC) 40 mg PO DAILY furosemide 40 mg tablet 40 mg PO QAM spironolactone 25 mg tablet 25 mg PO DAILY Follow-up/Referrals: Marlon Anderson MD [Primary Care Provider] - Levy Noonan MD [Physician] - Time of Disposition: 18:30
--- OUTSIDE RECORDS SUMMARY | 2024-12-20 18:48 | XMS_ITS | CONTINUITY OF CARE DOCUMENT ---
Author Name cece zhao Address Unknown Organization [facility] Address [address] [place] [address] [address] [place] [address] Phone [phone] Care Team Providers Care Biometrics Instructor Name Role Phone Ger Lane MD Unavailable ROSA GONSALES MD Unavailable INSURANCE PROVIDERS Payer name Policy type / Coverage type [employer] party ID [employer] MEDICAID Medicaid [id number]
--- OUTSIDE RECORDS SUMMARY | 2024-12-20 18:48 | XMS_ITS | Continuity of Care Document ---
Author Organization [facility] Address [address] [facility] [address] [place] [address] Phone Care Team Providers Care Tube Cutter Operator Name Role Phone Sammy Hodgson MD Unavailable Unavailable Advance Directives Directive Yes / No Effective Date File Name No Information Encounters Encounter Description Practice Location Reason(s) For Visit Diagnoses Date Provider Providers Copied on Encounter [facility] , [id number] [facility] [address] [facility] [address], [place], [address], [place] tel:[phone] [facility] No Information 3 Rema Christianson. [address] [facility] [address] [place], [place], [id number] . tel:[phone] Family History Family Member Type Diagnosis Age [...]
--- OUTSIDE RECORDS SUMMARY | 2024-12-20 18:48 | XMS_ITS | Clinical Summary ---
Author Organization [facility] Address [address] [place] [address] Care Team Providers Care Rural Sociologist Name Role Phone Marlon Anderson MD Primary Care Provider [phone] Source Comments [facility],non-owned Affiliates and Associated Physician Practices is amultiple site organization consisting of ambulatory clinics and hospital sitesin [place], [place], [place] and [place]. This disclosure is being madepursuant to the Care Everywhere program and may not contain all information available regarding this patient. Last updated 18.[facility] Allergies Active Allergy Reactions Criticality Noted Date Comments Baclofen Dizziness 04/18/2021 falls Medications * Be aware that medications may not be up to date on this document. Alwaysverify current medications with the patient. Medication Sig Dispensed Refills Start Date End Date Status valACYclovir (VALTREX) 500 MG tablet Take 500 mg by mouth once daily 08/08/2020 Active umeclidinium (INCRUSE ELLIPTA) 62.5 MCG/INH inhaler Inhale 1 puff by mouth once daily 08/08/2020 Active triamcinolone acetonide (KENALOG) 0.1 % cream Apply 1 drop to affected area 2 times daily as needed Active topiramate (TOPAMAX) 50 MG tablet Take 50 mg by mouth 2 times daily 12/06/2020 Active tiZANidine (ZANAFLEX) 4 MG tablet Take 4 mg by mouth 3 times daily as needed 08/27/2020 Active tiotropium (SPIRIVA) 18 MCG inhalation capsule Inhale 1 puff by mouth once daily Active sulindac (CLINORIL) 200 MG tablet Take 200 mg by mouth once daily Active spironolactone (ALDACTONE) 25 MG tablet Take 25 mg by mouth once daily Active sennosides (SENOKOT) 8.6 MG tablet Take 1 tablet by mouth as needed 08/18/2020 Active rOPINIRole (REQUIP) 4 MG tablet Take 8 mg by mouth at bedtime 08/27/2020 Active QUEtiapine (SEROQUEL) 300 MG tablet Take 300 mg by mouth at bedtime 08/10/2020 Active QUEtiapine (SEROQUEL) 50 MG tablet Take 50 mg by mouth 2 times daily 08/10/2020 Active potassium chloride ER (KLOR-CON M) 20 MEQ tablet Take 20 mEq by mouth once daily Active omeprazole (PRILOSEC) 40 MG capsule Take 40 mg by mouth once daily 09/04/2020 Active nystatin (MYCOSTATIN) 630561 UNIT/ML suspension Swish and spit 10 mL 2 times daily Active nitrofurantoin monohyd macro crystals (MACROBID) 100 MG capsule Take 100 mg by mouth 2 times daily 07/20/2021 Active nicotine (NICODERM CQ) 21 MG/24HR patch Apply 1 patch to skin once daily Active montelukast (SINGULAIR) 10 MG tablet Take 10 mg by mouth at bedtime Active mometasone-formotero l (DULERA) 100-5 MCG/ACT inhaler Inhale 1 puff by mouth 2 times daily 09/01/2020 Active melatonin 3 MG tablet Take 3 mg by mouth at bedtime Active magnesium oxide (MAG-OX) 400 (241.3 Mg) MG tablet Take 400 mg by mouth as needed 02/25/2021 Active lithium CR (ESKALITH CR) 450 MG tablet Take 450 mg by mouth 2 times daily 08/10/2020 Active albuterol-ipratropiu m (DUO-NEB) 0.5-2.5 (3) MG/3ML nebulizer solution Inhale 3 mL by mouth as needed WITH NEBULIZER Active imiquimod (ALDARA) 5 % cream Apply 1 packet to affected area as needed Active gabapentin (NEURONTIN) 800 MG tablet Take 800 mg by mouth 2 times daily 09/01/2020 Active fluticasone propionate (FLONASE) 50 MCG/ACT nasal spray Iraan 2 sprays into each nostril once daily as needed 2020 Active DULoxetine (CYMBALTA) 60 MG capsule Take 60 mg by mouth once daily 09/04/2020 Active cyclobenzaprine (FLEXERIL) 10 MG tablet Take 10 mg by mouth once daily as needed Active cetirizine (ZYRTEC) 10 MG tablet Take 10 mg by mouth once daily 08/27/2020 Active albuterol HFA (PROVENTIL;VENTOLIN; PROAIR) 108 (90 Base) MCG/ACT inhaler Inhale 2 puffs by mouth every 4 hours as needed Active albuterol (PROVENTIL;VENTOLIN) (2.5 MG/3ML) 0.083% nebulizer solution Inhale 3 mL by mouth every 4 hours as needed WITH NEBULIZER Active clobetasol (TEMOVATE) 0.05 % ointmentIndications: Necrobiosis lipoidica Apply to affected area 2 times daily 60 g 2 05/26/2022 Active hydrOXYzine HCl (Atarax) 50 MG tablet Take 1 (one) tablet by mouth 4 times daily as needed for Itching 20 tablet 11/16/2024 Active Active Problems Problem Noted Date Diagnosed Date Cellulitis of finger of right hand 05/26/2022 Neuritis of right sural nerve 05/20/2022 Overview (05/26/2022): Added automatically from request for surgery [id number] Bipolar 1 disorder 12/18/2021 Cellulitis of right upper extremity 12/18/2021 GERD without esophagitis 12/18/2021 HTN (hypertension) 12/18/2021 Peripheral neuropathy 12/18/2021 Anxiety with depression 07/29/2021 Body mass index (BMI) of 30.0-30.9 in adult 06/2021 Candidiasis of mouth 07/29/2021 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 07/29/2021 Edema 07/29/2021 Hernia of anterior abdominal wall 07/29/2021 Pericardial effusion with cardiac tamponade 06/2021 Acute viral hepatitis 08/16/2015 Encounters Date Type Department Care Team Description 11/16/2024 4:14 AM OFFICE MACHINE TECHNICIAN - 11/16/2024 7:02 AM [facility] Emergency [facility] EMERGENCY DEPARTMENT [address] [place] [address] Devon Adan MD Chest pain, unspecified type (Primary Dx) Discharge Disposition: Home or Self Care 11/15/2024 Travel from Last 3 Months Family History Medical History Relation Name Comments None Known Brother None Known Father None Known Maternal Aunt Drug Abuse Maternal Grandfather Cancer Maternal Grandmother Drug Abuse Maternal Grandmother None Known Maternal Uncle Cancer Mother None Known Other None Known Paternal Aunt None Known Paternal Grandfather None Known Paternal Grandmother None Known Paternal Uncle None Known Sister Asthma Neg Hx CVA Neg Hx Cancer - Breast Neg Hx Cancer - Other Neg Hx Cancer - Skin, Melanoma Neg Hx Cancer - Skin, Non Melanoma Neg Hx Eczema Neg Hx Hemophilia Neg Hx Psoriasis Neg Hx Relation Name Status Comments Brother Father Maternal Aunt Maternal Grandfather Maternal Grandmother Maternal Uncle Mother Other Paternal Aunt Paternal Grandfather Paternal Grandmother Paternal Uncle Sister Social History Tobacco Use Types Packs/Day Years Used Date Smoking Tobacco: Every Day Cigarettes Smokeless Tobacco: Never Comments:trying to quit, smo mariah 2-3 a day Alcohol Use Standard Drinks/Week Comments No 0 (1 standard drink = 0.6 oz pur e alcohol) Sex and Gender Information Value Date Recorded Sex Assigned at Not on file Gender Identity Not on file Sexual Orientation Not on file Last Filed Vital Signs Vital Sign Reading Time Taken Comments Blood Pressure 158/98 11/16/2024 7:00 AM OFFICE MACHINE TECHNICIAN Pulse 78 11/16/2024 7:00 AM OFFICE MACHINE TECHNICIAN Temperature 36.3 ??C (97.3 ??F) 11/16/2024 2:00 AM CS T Respiratory Rate 16 11/16/2024 7:00 AM OFFICE MACHINE TECHNICIAN Oxygen Saturation 99% 11/16/2024 7:00 AM OFFICE MACHINE TECHNICIAN Inhaled Oxygen Concentration - - Weight 72.6 kg (160 lb) 11/15/2024 9:46 PM OFFICE MACHINE TECHNICIAN Height 170.2 cm (5' 7 ) 11/15/2024 9:46 PM OFFICE MACHINE TECHNICIAN Body Mass Index 25.06 11/15/2024 9:46 PM OFFICE MACHINE TECHNICIAN Plan of Treatment Health Maintenance Due Date Last Done Comments COLOGUARD (AGES 45-75) - COL ON CA SCREENING 1971 COLON MONITORING 1971 COLONOSCOPY - COLON CA SCREENING 1971 CT COLONOGRAPHY - COLON CA SCREENING 1971 Colorectal Cancer Screening 1971 FIT - COLON CA SCREENING 1971 FLEX SIG - COLON CA SCREENING 1971 LIPID TESTING 1971 MAMMOGRAM 1971 PAP SMEAR 1971 DTAP/TDAP/TD VACCINES (1 - Tdap) 1990 HEPATITIS B VACCINE (1 of 3 - 19+ 3-dose series) 1990 PNEUMOCOCCAL VACCINE 50+ (1 of 2 - PCV) 1990 PNEUMOCOCCAL VACCINE (1 of 2 - PCV) 1990 ZOSTER VACCINE (1 of 2) 2021 COVID-19 VACCINE (4 - 2023-2 5 season) 2024 09/30/2022, 12/18/2020, 11/20/2020 INFLUENZA VACCINE (#1) 2024 2, 09/04/2020, 12/30/2014 HEPATITIS C SCREENING Completed 08/16/2015 , 08/16/2015, 08/16/2015 HIV SCREENING Completed 08/16/2015 HIB VACCINE Aged Out No longer eligi ble based on patient's age to complete this topic HPV VACCINE Aged Out No longer eligi ble based on patient's age to complete this topic MENINGOCOCCAL (Group B) VACCINE Aged Out No longer eligible b ased on patient's age to complete this topic MENINGOCOCCAL VACCINE Aged Out No brandon natalie eligible based on patient's age to complete this topic Procedures Procedure Name Priority Date/Time Associated Diagnosis Comments CARDIAC EKG ORDER 11/19/2024 10: 58 AM OFFICE MACHINE TECHNICIAN TROPONIN-I HIGH SENSITIVE REFLEX 1HOUR Timed 11/16/2024 12:41 AM OFFICE MACHINE TECHNICIAN TROPONIN-I HIGH SENSITIVE BASELINE + 1HR STAT 11/15/2024 11:41 PM OFFICE MACHINE TECHNICIAN HCG BETA BLOOD QUANTITATIVE STAT 11/15/2024 11:41 PM OFFICE MACHINE TECHNICIAN COMPREHENSIVE METABOLIC PANEL STAT 11/15/2024 11:41 PM OFFICE MACHINE TECHNICIAN CBC W AUTO DIFFERENTIAL STAT 11/15/2024 11:41 PM OFFICE MACHINE TECHNICIAN XR CHEST 2VW STAT 11/15/2024 11:05 PM OFFICE MACHINE TECHNICIAN Chest pain, unspecified type EKG 12-LEAD STAT 11/15/2024 10:29 PM OFFICE MACHINE TECHNICIAN Chest pain, unspecified type HIV-1 HIV-2 ANTIGEN/ANTIBODY Routine 08/16/2015 12:58 PM CDT HEPATITIS SCREEN ACUTE Routine 5 2:50 AM CDT from Last 3 Months or Most Recently Relevant to Health Maintenance Results * CARDIAC EKG ORDER (11/19/2024 10:58 AM OFFICE MACHINE TECHNICIAN) Narrative 11/19/2024 10:58 AM OFFICE MACHINE TECHNICIAN Ordered by an unspecified provider. Scanned Document CARDIAC SERVICES ORD ERABLES * TROPONIN-I HIGH SENSITIVE REFLEX 1HOUR (11/16/2024 12:41 AM OFFICE MACHINE TECHNICIAN) Troponin I High Sensitive 4 <=14 ng/L 11/16/2024 1:22 AM OFFICE MACHINE TECHNICIAN [facility] Delta Troponin I HS <0 <6 ng/L 11/16/2024 1:22 AM OFFICE MACHINE TECHNICIAN [facility] Blood BLOOD SPECIMEN / Unknown Venipuncture / Unknown 11/16/2024 12:41 AM OFFICE MACHINE TECHNICIAN 11/16/2024 12:49 AM OFFICE MACHINE TECHNICIAN Trav Stanley MD LAB - CHEMISTRY RICA RHODES [facility] Organization Address [facility]/State/[facility] Co de Phone Number [address] [address], [facility] [phone] * TROPONIN-I HIGH SENSITIVE BASELINE + 1HR (11/15/2024 11:41 PM OFFICE MACHINE TECHNICIAN) Troponin I High Sensitive 6 <=14 ng/L 11/16/2024 12:26 AM OFFICE MACHINE TECHNICIAN [facility] Blood BLOOD SPECIMEN / Unknown Venipuncture / Unknown 11/15/2024 11:41 PM OFFICE MACHINE TECHNICIAN 11/15/2024 11:53 PM OFFICE MACHINE TECHNICIAN Trav Stanley MD LAB - CHEMISTRY RICA RHODES [facility] Organization Address City/State/ZIP Co de Phone Number [facility] [address] [place] [address], [facility] [phone] * (ABNORMAL) CBC W AUTO DIFFERENTIAL (11/15/2024 11:41 PM OFFICE MACHINE TECHNICIAN) WBC 11.3(H) 4.0 - 10.7 x10E9/L 11/15/2024 11:57 PM [facility] RBC Count 4.64 3.90 - 5.20 x10E12/L 11/15/2024 11:57 PM [facility] Hemoglobin 14.4 11.9 - 15.8 g/dL 11/15/2024 11:57 PM [facility] Hematocrit 41.1 34.8 - 46.1 % 11/15/2024 11:57 PM [facility] MCV 88.6 80.0 - 98.0 fL 11/15/2024 11:57 PM [facility] MCH 31.0 26.7 - 33.6 pg 11/15/2024 11:57 PM [facility] MCHC 35.0 31.7 - 36.3 g/dL 11/15/2024 11:57 PM [facility] RDW-CV 12.4 11.3 - 14.8 % 11/15/2024 11:57 PM [facility] Platelet Count 315 150 - 420 x10E9/L 11/15/2024 11:57 PM [facility] MPV 9.0 7.8 - 11.4 fL 11/15/2024 11:57 PM [facility] Neutrophil % 66.6 41.0 - 74.0 % 11/15/2024 11:57 PM [facility] Lymphocyte % 24.4 17.0 - 47.0 % 11/15/2024 11:57 PM [facility] Monocyte % 7.2 3.0 - 11.0 % 11/15/2024 11:57 PM [facility] Eosinophil % 1.0 0.0 - 7.0 % 11/15/2024 11:57 PM [facility] Basophil % 0.4 0.0 - 1.6 % 11/15/2024 11:57 PM [facility] Immature Granulocytes % 0.4 0.0 - 1.0 % 11/15/2024 11:57 PM [facility] Neutrophil Absolute 7.53(H) 1.60 - 7.50 x10E9/L 11/15/2024 11:57 PM [facility] Lymphocyte Absolute 2.75 1.00 - 4.40 x10E9/L 11/15/2024 11:57 PM [facility] Monocyte Absolute 0.81 0.15 - 1.00 x10E9/L 11/15/2024 11:57 PM [facility] Eosinophil Absolute 0.11 0.00 - 0.60 x10E9/L 11/15/2024 11:57 PM [facility] Basophil Absolute 0.05 0.00 - 0.13 x10E9/L 11/15/2024 11:57 PM [facility] Blood BLOOD SPECIMEN / Unknown Venipuncture / Unknown 11/15/2024 11:41 PM OFFICE MACHINE TECHNICIAN 11/15/2024 11:53 PM OFFICE MACHINE TECHNICIAN Trav Stanley MD LAB - HEMATOLOGY ORD ERABLES [facility] [address] [place] [address], [facility] [phone] * (ABNORMAL) COMPREHENSIVE METABOLIC PANEL (11/15/2024 11:41 PM OFFICE MACHINE TECHNICIAN) BUN 19 7 - 26 mg/dL 11/16/2024 12:22 AM [facility] Creatinine 0.86 0.56 - 0.96 mg/dL 11/16/2024 12:22 AM [facility] Sodium 145 136 - 145 mmol/L 11/16/2024 12:22 AM [facility] Potassium 4.5 3.5 - 4.5 mmol/L 11/16/2024 12:22 AM [facility] Chloride 113(H) 98 - 107 mmol/L 11/16/2024 12:22 AM [facility] CO2 23 22 - 29 mmol/L 11/16/2024 12:22 AM OFFICE MACHINE TECHNICIAN [facility] Glucose 95 70 - 99 mg/dL 11/16/2024 12:22 AM [facility] Calcium 9.5 8.4 - 10.2 mg/dL 11/16/2024 12:22 AM [facility] Protein Total 7.0 6.0 - 8.3 g/dL 11/16/2024 12:22 AM [facility] Albumin 4.1 3.4 - 5.0 g/dL 11/16/2024 12:22 AM [facility] Bilirubin Total 0.3 0.2 - 1.2 mg/dL 11/16/2024 12:22 AM [facility] Alkaline Phosphatase 139 40 - 150 U/L 11/16/2024 12:22 AM [facility] ALT 28 5 - 55 U/L 11/16/2024 12:22 AM [facility] AST 24 5 - 34 U/L 11/16/2024 12:22 AM [facility] Anion Gap 9 6 - 16 11/16/2024 12:22 AM [facility] BUN/Creatinine Ratio 22 7 - 23 11/16/2024 12:22 AM [facility] Osmolality Calculated 302(H) 275 - 295 mOsm/kg 11/16/2024 12:22 AM [facility] Albumin/Globulin Ratio 1.4 1.1 - 2.3 11/16/2024 12:22 AM [facility] eGFR by CKD-EPI 81(L) >=90 mL/min/1.7 3 m2 11/16/2024 12:22 AM [facility] Blood BLOOD SPECIMEN / Unknown Venipuncture / Unknown 11/15/2024 11:41 PM OFFICE MACHINE TECHNICIAN 11/15/2024 11:53 PM [facility] Trav Stanley MD LAB - CHEMISTRY ORDYuki RHODES [facility] Organization Address City/State/ZIP Co de Phone Number [facility] [address] [place] [address], [facility] [phone] * HCG BETA BLOOD QUANTITATIVE (11/15/2024 11:41 PM OFFICE MACHINE TECHNICIAN) Beta-hCG Total Quantitative <3 mIU/mL 11/16/2024 12:28 AM [facility] Comment: HCG Numeric Result Interpretation: ? Non- Females: ? < 5 mIU/mL ? Post-Menopausal Females: ??< 7 mIU/mL ? This assay is cleared for use in the early detection of only. It is not approved for any other uses such as tumor marker screening, tumor marker monitoring, etc. and should not be used for any other purposes. Blood BLOOD SPECIMEN / Unknown Venipuncture / Unknown 11/15/2024 11:41 PM OFFICE MACHINE TECHNICIAN 11/15/2024 11:53 PM OFFICE MACHINE TECHNICIAN Trav Stanley MD LAB - CHEMISTRY RICA RHODES [address] [address], [facility] [phone] * XR CHEST 2VW (11/15/2024 11:05 PM OFFICE MACHINE TECHNICIAN) Anatomical Region Laterality Modality Chest Digital Radiogra phy 11/15/2024 11:5 0 PM OFFICE MACHINE TECHNICIAN Narrative 11/16/2024 8:03 AM OFFICE MACHINE TECHNICIAN PROCEDURE: ??XR CHEST 2VW, DATE/TIME OF EXAM: ??11/15/2024 11:05 PM, LOCATION [facility] INDICATION: R07.9: Chest pain, unspecified type ADDITIONAL CLINICAL INFORMATION: Ordering Provider Reason For Exam: ??CP Comparison: Chest x-ray 05/17/2014 FINDINGS/IMPRESSION: There is no focal consolidation, pleural effusion, or pneumothorax. The cardiomediastinal silhouette is normal. No displaced fractures visualized. A linear clip/marker projects over the right breast. Report dictated by Zane Chaparro MD (vice president pharmacy). I, Jeffery Stein MD have personally reviewed and interpreted this examination/study. > Interpreting Provider: Jeffery Stein MD on 11/16/2024 8:03 AM Procedure Note Jeffery Stein MD - 11/16/2024 PROCEDURE: XR CHEST 2VW, DATE/TIME OF EXAM: 11/15/2024 11:05 PM,LOCATION [facility] INDICATION: R07.9: Chest pain, unspecified type ADDITIONAL CLINICAL INFORMATION: Ordering Provider Reason For Exam: CP Comparison: Chest x-ray 05/17/2014 FINDINGS/IMPRESSION: There is no focal consolidation, pleural effusion, or pneumothorax. The cardiomediastinal silhouette is normal. No displaced fracturesvisualized. A linear clip/marker projects over the right breast. Report dictated by Zane Chaparro MD (vice president pharmacy). I, Jeffery Stein MD have personally reviewed and interpreted this examination/study. > Interpreting Provider: Jeffery Stein MD on 11/16/2024 8:03 AM Trav Stanley MD DIAGNOSTIC IMAGING O RDERABLES * EKG 12-LEAD (11/15/2024 10:29 PM OFFICE MACHINE TECHNICIAN) Pathologist [facility] Ventricular Rate 71 BPM SL MUSE Atrial Rate 71 BPM SL MUSE P-R Interval 160 ms [facility] MUSE QRS Duration ms 78 ms H MUSE Q-T Interval ms 388 ms [facility] MUSE QTC Calculation (Bezet) 421 ms [facility] MUSE Calculated P [place] 78 degrees [facility] MUSE Calculated R [place] 65 degrees [facility] MUSE Calculated T [place] 60 degrees [facility] MUSE Interpretation EKG NORMAL SINUS RHYTHM POSSIBLE LEFT ATRIAL ENLARGEMENT BORDERLINE ECG NO PREVIOUS ECGS AVAILABLE Confirmed by MIGUE [facility] ([id number]) on 11/18/2024 2:09:48 PM [facility] MUSE 11/15/2024 10:2 9 PM OFFICE MACHINE TECHNICIAN 11/18/2024 2:09 PM OFFICE MACHINE TECHNICIAN Devon Caceres MD ECG ORDERABLES [facility] MUSE * HIV-1 HIV-2 ANTIGEN/ANTIBODY (08/16/2015 12:58 PM CDT) Pathologist [facility] HIV Antigen/Antibod y 1 & 2 Non-reacti ve Non-react drew [facility] Comment: Neither HIV-1 p24 Antigen nor HIV-1/HIV-2 Antibodies are detected. ? Blood specimen (specimen) BLOOD SPECIMEN / Unknown 08/16/2015 12:58 PM CDT 08/16/2015 12:58 PM CDT Colton Magana MD LAB - HEMATOLOGY [facility] [address] [phone] * (ABNORMAL) HEPATITIS SCREEN ACUTE (08/16/2015 2:50 AM CDT) Hepatitis A Virus Antibody IgM Non-react drew Non-react [facility] Hepatitis B Virus Surface Antigen Non-react drew Non-react [facility] Hepatitis B Core Virus Antibody IgM Non-react [facility] Non-react [facility] Hepatitis C Antibody Reactive( A) Non-react [facility] Comment: Hepatitis C Antibody screen is consistent with past or current infection with Hepatitis C Virus. Nucleic Acid Test (RENETTA) for Hepatitis C Viral RNA should be performed for initial HCV workup, and for differentiating active/chronic infection from resolved infection. Blood specimen (specimen) BLOOD SPECIMEN / Unknown 08/16/2015 2:50 AM CDT 08/16/2015 3:07 AM CDT Colton Magana MD LAB - CHEMISTRY RICA RHODES [address] [phone] from Last 3 Months or Most Recently Relevant to Health Maintenance Care Teams Rural Sociologist Relationship Specialty Start Date End Date Marlon Anderson MD [address] [place] [address] PCP - General Internal Medicine 04/18/21
--- OUTSIDE RECORDS SUMMARY | 2024-12-20 18:48 | XMS_ITS | Clinical Summary ---
Author Organization [facility] Address [facility] [place] [address] [place] [address] Care Team Providers Care Saloonkeeper Name Role Phone Marlon Anderson MD Primary Care Provider [phone] Allergies Active Allergy Reactions Criticality Noted Date [...] Problems Problem Noted Date Diagnosed Date Sepsis ([facility]) 09/24/2023 Epigastric pain 09/24/2023 Overview (09/27/2023): Added automatically from request for surgery Abnormal findings on diagnos tic imaging of liver and biliary tract 09/24/2023 Overview (09/27/2023): Added automatically from request for surgery Acute respiratory failure with hypoxia ([facility]) 09/05/2020 Immunizations Name Administration Dates Next Due [...] Comments Blood Pressure 131/78 09/29/2023 7:52 AM PATIENT MANAGER Pulse 71 09/29/2023 7:52 AM PATIENT MANAGER Temperature 37.1 ??C (98.8 ??F) 09/29/2023 7:52 AM CS T Respiratory Rate 20 09/29/2023 7:52 AM PATIENT MANAGER Oxygen Saturation 100% 09/29/2023 7:52 AM PATIENT MANAGER Inhaled Oxygen Concentration - - Weight 71.2 kg (156 lb 15.5 oz) 09/29/2023 5:30 AM PATIENT MANAGER Height 170.2 cm (5' 7 ) 09/24/2023 [...] W/ REFLX GENOTYPE Routine 09/25/2023 2:20 PM PATIENT MANAGER from Last 3 Months or Most Recently Relevant to Health Maintenance Results * HEPATITIS C RNA W/ REFLX GENOTYPE (09/25/2023 2:20 PM PATIENT MANAGER) HEPATITIS C RNA PCR QNT <15 IU/mL 09/27/2023 3:38 PM PATIENT MANAGER [facility] CHARISSA ARNOLD Comment: HCV RNA Not Detected HEP C RNA PCR QNT LOG <1.18 log IU/mL 09/27/2023 3:38 PM PATIENT MANAGER [facility] CHARISSA ARNOLD Comment: HCV RNA Not Detected Reference Range: ?Not Detected ? IU/mL ?Not Detected ?? Log IU/mL This test was performed using Real-Time Polymerase Chain Reaction. Reportable range is 15 IU/mL to 100,000,000 IU/mL (1.18 Log IU/mL to 8.00 Log IU/mL). For additional information please refer to http://education.Siamos[employer].BookitNow!/faq/TOR39p7 (This link is being provided for informational/ educational purposes only.) The analytical performance characteristics of this assay have been determined by [facility] [place], [place]. ??The modifications have not been cleared or approved by the FDA. ??This assay has been validated pursuant to the CLIA regulations and is used for clinical purposes. Test Performed by [facility], [facility], [address] [place], [place] Tj Griffith M.D., Ph.D., Director of Laboratories , CLIA [id number] 09/25/2023 2:20 PM PATIENT MANAGER Alek Shell DO LABORATORY Final Result [place] [id number] [place] [address], from Last 3 Months or Most Recently Relevant to Health Maintenance Insurance [employer] Advance Directives * Full Code (Latest Code Status on File) Date Activated Date Inactivated Comments 09/24/2023 9:18 PM 09/29/2023 12:21 PM * Full Code Date Activated Date Inactivated Comments 09/05/2020 3:14 PM 09/09/2020 5:05 PM Care Teams Saloonkeeper Relationship Specialty Start Date End Date Marlon Anderson MD [address] [facility] [address] [place] [id number] PCP - General INTERNAL MEDICINE 09/05/20
--- OUTSIDE RECORDS SUMMARY | 2024-12-20 18:48 | XMS_ITS | Patient Health Record ---
Author Organization [facility] Address [address] [place] [address] Care Team Providers Care Tank Cooper Name Role Phone Marlon Anderson Primary Care Provider [phone] Macie Badillo Unavailable [phone] Allergies Allergen (clinical drug ingredient) Drug/Non Drug Allergy documented on EMR Reaction Allergy Type Onset Date Status baclofen Baclofen Confused Drug Allergy Active Reason For Referral No Information Medications Medication SIG (Take, Route, Frequency, Duration) Notes Start Date End Date Status Gabapentin 800 mg TAKE 1 TABLET BY MOUTH TWICE A DAY for 23 Active Omeprazole 40 mg TAKE 1 CAPSULE BY MOUTH DAILY for 30 Active lamoTRIgine 150 MG 1 tablet Orally Once a day for 14 days Needs to schedule an appointment. Active Multivitamin Adult - 1 tablet Orally Once a day Active Famotidine 40 MG 1 tablet at bedtime Orally Once a day Active Oppelo Carbonate ER 450 mg 2 tablets orally at bedtime for 14 days Needs to schedule an appointment. Active Aspirin 81 81 MG 1 tablet Orally Once a day Active Magnesium Oxide 400 mg TAKE 1 TABLET BY MOUTH DAILY NEEDED for 30 Active valACYclovir HCl 1 GM TAKE 1 TABLET BY MOUTH DAILY for 30 Active Paliperidone ER 3 MG TAKE 1 TABLET BY MOUTH AT BEDTIME Orally Once a day for 14 days Needs to schedule an appointment. Active rOPINIRole HCl 4 mg TAKE 2 TABLETS BY MOUTH AT BEDTIME for 30 Active Cetirizine HCl 10 mg TAKE 1 TABLET BY MOUTH DAILY NEEDED FOR CONGESTION for 30 Active Nicotine 21 MG/24HR APPLY 1 PATCH TO SKIN TRANSDERMAL ONCE A DAY for 28 Active Influenza Vac Subunit Quad 0.5 ML as directed Intramuscular once for 1 days Not-Taking Potassium Chloride Debbie ER 20 MEQ TAKE 1 TABLET BY MOUTH DAILY for 30 Active Furosemide 40 mg TAKE 1 TABLET BY MOUTH TWICE A DAY for 30 Active Sucralfate 1 GM TAKE 1 TABLET BY MOUTH TWICE A DAY ON AN EMPTY STOMACH for 30 Active Influenza Vac Subunit Quad 0.5 ML as directed Intramuscular Not-Taking Influenza Vac Split Quad 0.5 ML as directed Intramuscular once Not-Taking Influenza Vac Subunit Quad 0.5 ML as directed Intramuscular once for 1 days Not-Taking Influenza Vac Subunit Quad 0.5 ML as directed Intramuscular once for 1 days Not-Taking Atorvastatin Calcium 40 mg TAKE 1 TABLET BY MOUTH DAILY for 30 Active hydrOXYzine Pamoate 50 mg TAKE 1 CAPSULE BY MOUTH THREE TIMES A DAY NEEDED FOR ANXIETY Orally three times a day for 30 days Active Albuterol Sulfate HFA 108 (90 Base) MCG/ACT 2 puff as needed Inhalation every 4 hrs As needed SHORTNESS OF BREATH 10/14/2023 Active Melatonin 5 mg TAKE 2 TABLETS (10MG) BY MOUTH AT BEDTIME for 30 Active Umeclidinium [place] 62.5 MCG/ACT 1 puff Inhalation Once a day 10/14/2023 Active Immunizations Vaccine Route Administration Date Status Comme nts COVID-19 Moderna 1ST IM Intramuscular 11/20/2020 Administered EUA provided. Screening and consent reviewed. Pt tolerated well. COVID-19 Moderna 1ST IM Intramuscular 12/18/2020 Administered EUA provided. Screening and consent reviewed and signed. Pt tolerated well. FLU VAC NO PRSV 4VAL 6 mo+ IM Intramuscular 10/14/2023 Administered Pt. tolerated well. No questions/concerns at this time. Social History Tobacco Use: Social History Observation Description Date Details (start date - stop date) Current Smoker NA - NA Sex Assigned At : Social History Observation Description Sex Assigned At Female Dont use, Tobacco Use/Smoking Question Answer Notes Are you a current smoker Alcohol Screen (Audit-C) Question Answer Notes Did you have a drink containing alcohol in the p ast year? No Points 0 Interpretation Negative Section Notes: Disccused smoking cessation Is interested in starting Chantix Disccused smoking cessation Is interested in starting Chantix No recent per PDMP No recent per PDMP Disccused smoking cessation Is interested in starting Chantix Disccused smoking cessation Is interested in starting Chantix Disccused smoking cessation Is interested in starting Chantix Disccused smoking cessation Is interested in starting Chantix Disccused smoking cessation Is interested in starting Chantix Disccused smoking cessation Is interested in starting Chantix Disccused smoking cessation Is interested in starting Chantix Disccused smoking cessation Is interested in starting Chantix Disccused smoking cessation Is interested in starting Chantix Disccused smoking cessation Is interested in starting Chantix Disccused smoking cessation Is interested in starting Chantix Disccused smoking cessation Is interested in starting Chantix Disccused smoking cessation Is interested in starting Chantix Disccused smoking cessation Is interested in starting Chantix Disccused smoking cessation Is interested in starting Chantix Disccused smoking cessation Is interested in starting Chantix Disccused smoking cessation Is interested in starting Chantix Disccused smoking cessation Is interested in starting Chantix Disccused smoking cessation Is interested in starting Chantix Disccused smoking cessation Is interested in starting Chantix Disccused smoking cessation Is interested in starting Chantix Disccused smoking cessation Is interested in starting Chantix Disccused smoking cessation Is interested in starting Chantix Disccused smoking cessation Is interested in starting Chantix Disccused smoking cessation Is interested in starting Chantix Disccused smoking cessation Is interested in starting Chantix Disccused smoking cessation Is interested in starting Chantix Disccused smoking cessation Disccused smoking cessation Is interested in starting Chantix Disccused smoking cessation Disccused smoking cessation Is interested in starting Chantix Disccused smoking cessation Is interested in starting Chantix Disccused smoking cessation Is interested in starting Chantix Disccused smoking cessation Is interested in starting Chantix Disccused smoking cessation Is interested in starting Chantix Disccused smoking cessation Is interested in starting Chantix Disccused smoking cessation PRESCRIPTION # FILLED WRITTEN DRUG LABEL QTY DAYS STRENGTH MEDD PRESCRIBER PHARMACY REFILL NO. REFILLS STATE 12/27/2021 12/26/2021 HYDROcodone/ACETAMINOPHEN 9.0 3 325 MG-5 MG 15 Umer Dougherty - [id number] [place], [place] NA 0 [place] 1 [id number] 10/20/2021 10/20/2021 HYDROcodone BIT/ACETAMINOPHEN 10.0 3 325 MG-5 MG 16.67 Jamil Frias E (Pa-c) - [id number] [place], [place] NA 0 [place] 1 [id number] 08/13/2021 08/13/2021 HYDROcodone BIT/ACETAMINOPHEN 12.0 3 325 MG-5 MG 20 ZachAshleigh khouryjes Mariscal) - [id number] [place], [place] NA 0 [place] 1 [id number] 05/26/2021 05/26/2021 HYDROcodone BIT/ACETAMINOPHEN 42.0 7 325 MG-5 MG 30 Naye Neal Disccused smoking cessation Is interested in starting Chantix No recent per PDMP Disccused smoking cessation Is interested in starting Chantix Disccused smoking cessation Disccused smoking cessation Disccused smoking cessation Is interested in starting Chantix Disccused smoking cessation Is interested in starting Chantix Disccused smoking cessation Disccused smoking cessation Is interested in starting Chantix Disccused smoking cessation Is interested in starting Chantix Disccused smoking cessation Is interested in starting Chantix Disccused smoking cessation Is interested in starting Chantix Disccused smoking cessation Is interested in starting Chantix Disccused smoking cessation Disccused smoking cessation Disccused smoking cessation Disccused smoking cessation Is interested in starting Chantix Disccused smoking cessation Is interested in starting Chantix Disccused smoking cessation Is interested in starting Chantix Disccused smoking cessation Is interested in starting Chantix Disccused smoking cessation Disccused smoking cessation Disccused smoking cessation Is interested in starting Chantix Disccused smoking cessation Is interested in starting Chantix Disccused smoking cessation Is interested in starting Chantix Disccused smoking cessation Is interested in starting Chantix Disccused smoking cessation Is interested in starting Chantix Disccused smoking cessation Is interested in starting Chantix Disccused smoking cessation Disccused smoking cessation Is interested in starting Chantix Disccused smoking cessation Is interested in starting Chantix Disccused smoking cessation Disccused smoking cessation Disccused smoking cessation Disccused smoking cessation Is interested in starting Chantix Disccused smoking cessation Is interested in starting Chantix Disccused smoking cessation Is interested in starting Chantix Disccused smoking cessation Is interested in starting Chantix Disccused smoking cessation Is interested in starting Chantix Disccused smoking cessation Is interested in starting Chantix Disccused smoking cessation Is interested in starting Chantix Disccused smoking cessation Is interested in starting Chantix Disccused smoking cessation Is interested in starting Chantix Disccused smoking cessation Is interested in starting Chantix Disccused smoking cessation Is interested in starting Chantix Disccused smoking cessation Is interested in starting Chantix Disccused smoking cessation Disccused smoking cessation Disccused smoking cessation Is interested in starting Chantix Disccused smoking cessation Is interested in starting Chantix No recent per PDMP Disccused smoking cessation Is interested in starting Chantix Disccused smoking cessation Is interested in starting Chantix Disccused smoking cessation Is interested in starting Chantix Disccused smoking cessation Is interested in starting Chantix Disccused smoking cessation Is interested in starting Chantix Disccused smoking cessation Is interested in starting Chantix Disccused smoking cessation Is interested in starting Chantix Disccused smoking cessation Is interested in starting Chantix Disccused smoking cessation Is interested in starting Chantix Disccused smoking cessation Is interested in starting Chantix Disccused smoking cessation Is interested in starting Chantix Disccused smoking cessation Is interested in starting Chantix Disccused smoking cessation Is interested in starting Chantix Disccused smoking cessation Is interested in starting Chantix Disccused smoking cessation Is interested in starting Chantix Disccused smoking cessation Is interested in starting Chantix Disccused smoking cessation Is interested in starting Chantix Disccused smoking cessation Is interested in starting Chantix Disccused smoking cessation Is interested in starting Chantix Disccused smoking cessation PRESCRIPTION # FILLED WRITTEN DRUG LABEL QTY DAYS STRENGTH MEDD PRESCRIBER PHARMACY REFILL NO. REFILLS STATE 12/27/2021 12/26/2021 HYDROcodone/ACETAMINOPHEN 9.0 3 325 MG-5 MG 15 Umer Dougherty - [id number] [place], [place] NA 0 [place] 1 [id number] 10/20/2021 10/20/2021 HYDROcodone BIT/ACETAMINOPHEN 10.0 3 325 MG-5 MG 16.67 Jamil Frias E (David) - [id number] [employer] [place], [place] NA 0 [place] 1 [id number] 08/13/2021 08/13/2021 HYDROcodone BIT/ACETAMINOPHEN 12.0 3 325 MG-5 MG 20 Maricel Majano (David) - [id number] [place], [place] NA 0 [place] 1 [id number] 05/26/2021 05/26/2021 HYDROcodone BIT/ACETAMINOPHEN 42.0 7 325 MG-5 MG 30 Naye Neal Disccused smoking cessation Is interested in starting Chantix Disccused smoking cessation Is interested in starting Chantix Disccused smoking cessation Is interested in starting Chantix Disccused smoking cessation Is interested in starting Chantix Disccused smoking cessation Is interested in starting Chantix Disccused smoking cessation Is interested in starting Chantix Disccused smoking cessation Is interested in starting Chantix Disccused smoking cessation Is interested in starting Chantix Disccused smoking cessation Is interested in starting Chantix No recent per PDMP Disccused smoking cessation Is interested in starting Chantix Disccused smoking cessation Is interested in starting Chantix Problems Problem Type SNOMED Code ICD Code Onset Dates Problem Status W/U Status Risk Notes Problem 554765950 Morbid (severe) obesity due to excess calories (E66.01) Active confirmed Problem 666220297 Metabolic syndro me (E88.81) Active confirmed Problem Tobacco user (590992934) Nicotine dependence, unspecified, uncomplicated (F17.200) Active confirmed Problem Bipolar disorder (04304959) Bipolar disorder, unspecified (F31.9) 017 Active confirmed Problem 59677761 Other chronic pa in (G89.29) Active confirmed Problem 663763422 Acute diastolic (congestive) heart failure (I50.31) Active confirmed Problem 344506438612053 Lumbago with sciatica, right side (M54.41) Active confirmed Problem 912676367 Lumbago with sciatica, left side (M54.42) Active confirmed Problem 597714909 Low back pain (M54.5) Active confirmed Problem Dysuria (59189961) Dysuria (R30.0) Active confi rmed Problem 49025058 Sprain of deltoi d ligament of right ankle, sequela (S93.421S) Active confirmed Problem Tobacco dependence (09954495) Tobacco dependence (F17.200) Active confirmed Problem Substance abuse (84643445) Substance abuse (F19.10) Active confirmed Problem 76994306 Anxiety (F41.9) Active confirmed Problem COPD - Chronic obstructive pulmonary disease (95775372) COPD (chronic obstructive pulmonary disease) (J44.9) Active confirmed Problem Vaginal candidiasis (00773128) Vaginal candidiasis (B37.3) Active confirmed Problem Abnormal cervical Papanicolaou smear (679104080) Abnormal Pap smear of cervix (R87.619) Active confirmed Problem 73380823 Restless leg syndrome (G25.81) Active confirmed Problem Pruritus of vagina (64945165) Vaginal itching (L29.8) Active confirmed Problem Tobacco user (671221027) Cigarette nicotine dependence (F17.200) Active confirmed Problem 906757061 Physical exam (Z00.00) Active confirmed Problem Disorder caused by alcohol (disorder) (056265794) Alcohol use disorder (F10.99) Active confirmed Problem 923382975 Leg edema (R60.0) Active confirmed Problem Nicotine dependence (89582707) Nicotine dependence (F17.200) Active confirmed Problem 363117103 Dorsalgia (M54.9) Active confirmed Problem Exposure to sexually transmissible disorder (event) (482643601) STD exposure (Z20.2) Active confirmed Problem 292215100 Tension headache (G44.209) Active confirmed Problem Well female adult (594589783) Well woman exam (Z01.419) Active confirmed Problem 607339090 Obesity (BMI 30-39.9) (E66.9) Active confirmed Problem 90305995 Essential hypertension (I10) 022 Active confirmed Problem 74734386 Hyperlipidemia, unspecified hyperlipidemia type (E78.5) Active confirmed Problem 23998289 Hepatitis C viru s infection, unspecified chronicity (B19.20) 017 Active confirmed NOW AB POSITIVE, VIRUS NEGATIVE Problem 405429232 Migraine without aura and without status migrainosus, not intractable (G43.009) Active confirmed Problem 838991652 Coronary artery disease involving picayune coronary artery of picayune heart without angina pectoris (I25.10) 021 Active confirmed Problem 44007925 Sleep apnea, unspecified type (G47.30) Active confirmed Problem 10290594 Chest pain, unspecified type (R07.9) Active confirmed Problem 164739738 Gastroesophageal reflux disease without esophagitis (K21.9) Active confirmed Problem Acute pain of right knee (M25.561) Active confirmed Problem 02597241 Left sided sciatica (M54.32) Active confirmed Problem 36034382 Obstructive slee p apnea syndrome (G47.33) Active confirmed Problem Irritable bowel syndrome characterized by constipation (793743530) Irritable bowel syndrome with constipation (K58.1) Active confirmed Problem Tobacco user (119865903) Nicotine dependence, uncomplicated, unspecified nicotine product type (F17.200) Active confirmed Problem 26848364 Fibrocystic marielena st changes, unspecified laterality (N60.19) Active confirmed Problem 188899460 Tobacco use disorder (F17.200) Active confirmed Problem Obesity (478099481) Obesity, unspecified classification, unspecified obesity type, unspecified whether serious comorbidity present (E66.9) Active confirmed Problem 909760825 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) Active confirmed Problem 05131765 Atrophic vaginit is (N95.2) Active confirmed Problem Mental disorder caused by drug (554376782) Opioid use disorder (F11.99) Active confirmed Problem 237444137 Chronic diastoli c congestive heart failure (I50.32) Active confirmed Problem 295060817 Diastolic dysfunction, left ventricle (I51.9) 022 Active confirmed Problem Wound of skin (545146765) Wound of skin (T14.8XXA) Active confirmed Problem Body mass index 35.00 to 39.99 (495591296168261) Body mass index [BMI] 36.0-36.9, adult (Z68.36) Active confirmed Problem 000783652 Macromastia (N62) Active confirmed Problem Obese class II (553165128819870) BMI 35.0-35.9,adult (Z68.35) Active confirmed Problem 43331649945095512 Cellulitis of right arm (L03.113) Active confirmed Plan Of Treatment No Information Insurance Providers Payer Name Payer Address Payer Phone Subscriber Number Group Number Insured Name Patient Relationship to Insured Coverage Start Date Coverage End Date [address] [phone] [id number] Rolando, Michelle Self - patient is the insured 7 [employer] [address] [place] [address] [id number] Michelle Marshall Self - patient is the insured 8 [employer] [address] [place] [address] [id number] Michelle Marshall Self - patient is the insured 0 [employer] REPORTING ANALY[employer] [address] [place] [address] [id number] Michelle Marshall Self - patient is the insured 1 [employer] [address] [place] [address] [id number] Michelle Marshall Self - patient is the insured 2 Medications Administered Medication Instructions Date of Administration Dosage [facility] 01/29/2022 234 mg patient t olerated well, denies any questions or concerns at this time. Was provided drug informational packet. Invega Sustenna 02/18/2022 156 mg Pt tolera [place] injection well. Pt voiced no questions or concerns. Invega Sustenna 03/12/2022 117 mg Pt radha we ll. Invega Sustenna 04/06/2022 234 mg Patient t olerated well. Invega Sustenna 05/04/2022 234 mg patient t olerated well, provided with informational packet, denies any further questions of concerns at this time. Invega Sustenna 06/02/2022 234 mg Patient t olerated well. Invega Sustenna 06/30/2022 156 mg Pt tolera [place] well. Declined info packet. Invega Sustenna 08/02/2022 156 mg Pt tolera [place] injection well. Pt voiced no questions and concerns. Invega Sustenna 08/31/2022 156 mg Pt. katia ated well. Denies pain or concerns at this time. Ketorolac 02/17/2017 15 mg Client tolerat ed injection well. Ketorolac 02/17/2017 15 mg Client tolerat ed injection well. Vivitrol 03/05/2022 380 mg Pt tolerated i njection well. Pt voiced no question or concerns. Vivitrol 04/02/2022 380 mg Pt. tolerated well and verbalized understanding to massage injection site well. No questions or concerns at this time. Vivitrol 09/02/2022 380 mg Pt. tolerated well. No questions/concerns at this time. Pt. provided with Vivitrol identification bracelet, card, and necklace. Vivitrol 09/29/2022 380 mg Pt tolerated i njection well. Pt voiced no questions or concerns. Vivitrol 11/04/2022 380 mg Pt tolerated i njection well. Pt voiced no questions and concerns. Medical (General) History Medical History History ICD Code Hepatitis C antibody POSITIVE without ac tive disease Anxiety COPD Gastric Ulcer Pancreatitis UTI Hyperthyroidism R breast lumpectomy R adrenal adenoma Depression PTSD Adjusment disorder gout Routine general medical examination at a health care facility Pharyngitis, unspecified etiology Claudication Dyspnea on exertion Acute gout of left ankle, unspecified ca use Other chronic pain Substance abuse COPD Genital herpes simplex, unspecified site Genital herpes simplex, unspecified site History of pancreatitis Influenza B Rhinitis, unspecified type Surgical History Surgery Date(Month/Year) Cholecystectomy 1997 Stents to bile duct 2010 Tonsillectomy 1976 Right breast lumpectomy 2012 Subtotal Thyroidectomy for hyperthyroidi 2013 TOTAL HYSTERECTOMY 2012 ORIF right wrist 06/05/2021 ORIF R wrist 2021 Hospitalization History Reason Date(Month/Year) cellulitis- [facility] 2021 C section 1994 Anitha - 2013 [place] - SARAH 2013 suicidal ideations - [place] 11/2016
--- OUTSIDE RECORDS SUMMARY | 2024-12-20 18:48 | XMS_ITS | Clinical Summary ---
Author Organization [facility] Address [address] [place] [address] Care Team Providers Care Radiology Teacher Name Role Phone Marlon Anderson MD Primary Care Provider [phone] Allergies Active Allergy Reactions Criticality Noted Date [...] (05/20/2022): Added automatically from request for surgery [id number] Cellulitis of right upper extremity 12/18/2021 Bipolar [...] (05/13/2021): Added automatically from request for surgery [id number] Closed displaced fracture of middle third of scaphoid of right wrist with routine healing 05/13/2021 Atherosclerotic heart diseas e of 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 Gender Identity Not on file Sexual Orientation [...] Completed 12/27/2022 Medical Devices Explanted Type Area Pulverizer Feeder Device Identifier Shelf Expiration Date Model / Serial / Lot Screw Bone 3mm 4.3mm 22mm Mini Implanted:Qty: 1 on 05/26/2021 by Corky Camilo MD at [facility] Explanted:Qty: 1 on 06/03/2022 by Corky Camilo MD at [facility] Right: Wrist [employer] [id number] / / Procedures Procedure Name Priority Date/Time Associated Diagnosis Comments HEPATITIS C ANTIBODY Routine 12/25/2021 3:26 PM ENTERPRISE ACCOUNT EXECUTIVE from Last 3 Months or Most Recently Relevant to Health Maintenance Results * (ABNORMAL) Hepatitis C antibody (12/25/2021 3:26 PM ENTERPRISE ACCOUNT EXECUTIVE) Hep C Ab Reactive( A) Nonreactive [facility] [...] revised on 2020. Blood 12/25/2021 3:26 PM ENTERPRISE ACCOUNT EXECUTIVE 12/25/2021 3:31 PM ENTERPRISE ACCOUNT EXECUTIVE us Price Ireland MD LAB MICROBIOLOGY - GENERAL O RDERABLES Final Result [facility] [address] [facility] Department [place] [address] from Last 3 Months or Most Recently Relevant to Health Maintenance Insurance [facility] Advance Directives For more information, please contact: [phone] * Full Code (Latest Code Status on File) Date Activated Date Inactivated Comments 12/18/2021 10:59 PM 12/26/2021 9:28 PM Care Teams Radiology Teacher Relationship Specialty Start Date End Date Marlon Anderson MD [address] [place] [address] [place] [address] PCP - General Internal Medicine 11/24/22
--- OUTSIDE RECORDS SUMMARY | 2024-12-20 18:48 | XMS_ITS | Patient Health Summary ---
Author Organization [facility] Address [address] [place] [address] Care Team Providers Care Aerologist Name Role Phone Marlon Anderson MD Primary Care Provider [phone] Note from [facility] [place]note 2],non-owned Affiliates and Associated Physician Practices is amultiple site organization consisting of ambulatory clinics and hospital sitesin [place], [place], [place] and [place]. This disclosure is being madepursuant to the Care Everywhere program and may not contain all information available regarding this patient. Last updated 18.[facility] Allergies * Baclofen(Dizziness) Medications * Be aware that medications may not be up to date on this document. Alwaysverify current medications with the patient. * valACYclovir (VALTREX) 500 MG tablet(Started 08/08/2020) Take 500 mg by mouth once daily * umeclidinium (INCRUSE ELLIPTA) 62.5 MCG/INH inhaler(Started 08/08/2020) Inhale 1 puff by mouth once daily * triamcinolone acetonide (KENALOG) 0.1 % cream Apply 1 drop to affected area 2 times daily as needed * topiramate (TOPAMAX) 50 MG tablet(Started 12/06/2020) Take 50 mg by mouth 2 times daily * tiZANidine (ZANAFLEX) 4 MG tablet(Started 08/27/2020) Take 4 mg by mouth 3 times daily as needed * tiotropium (SPIRIVA) 18 MCG inhalation capsule Inhale 1 puff by mouth once daily * sulindac (CLINORIL) 200 MG tablet Take 200 mg by mouth once daily * spironolactone (ALDACTONE) 25 MG tablet Take 25 mg by mouth once daily * sennosides (SENOKOT) 8.6 MG tablet(Started 08/18/2020) Take 1 tablet by mouth as needed * rOPINIRole (REQUIP) 4 MG tablet(Started 08/27/2020) Take 8 mg by mouth at bedtime * QUEtiapine (SEROQUEL) 300 MG tablet(Started 08/10/2020) Take 300 mg by mouth at bedtime * QUEtiapine (SEROQUEL) 50 MG tablet(Started 08/10/2020) Take 50 mg by mouth 2 times daily * potassium chloride ER (KLOR-CON M) 20 MEQ tablet Take 20 mEq by mouth once daily * omeprazole (PRILOSEC) 40 MG capsule(Started 09/04/2020) Take 40 mg by mouth once daily * nystatin (MYCOSTATIN) 627765 UNIT/ML suspension Swish and spit 10 mL 2 times daily * nitrofurantoin monohyd macro crystals (MACROBID) 100 MG capsule(Started 07/20/2021) Take 100 mg by mouth 2 times daily * nicotine (NICODERM CQ) 21 MG/24HR patch Apply 1 patch to skin once daily * montelukast (SINGULAIR) 10 MG tablet Take 10 mg by mouth at bedtime * mometasone-formoterol (DULERA) 100-5 MCG/ACT inhaler(Started 09/01/2020) Inhale 1 puff by mouth 2 times daily * melatonin 3 MG tablet Take 3 mg by mouth at bedtime * magnesium oxide (MAG-OX) 400 (241.3 Mg) MG tablet(Started 02/25/2021) Take 400 mg by mouth as needed * lithium CR (ESKALITH CR) 450 MG tablet(Started 08/10/2020) Take 450 mg by mouth 2 times daily * albuterol-ipratropium (DUO-NEB) 0.5-2.5 (3) MG/3ML nebulizer solution Inhale 3 mL by mouth as needed WITH NEBULIZER * imiquimod (ALDARA) 5 % cream Apply 1 packet to affected area as needed * gabapentin (NEURONTIN) 800 MG tablet(Started 09/01/2020) Take 800 mg by mouth 2 times daily * fluticasone propionate (FLONASE) 50 MCG/ACT nasal spray(Started 2020) [place] 2 sprays into each nostril once daily as needed * DULoxetine (CYMBALTA) 60 MG capsule(Started 09/04/2020) Take 60 mg by mouth once daily * cyclobenzaprine (FLEXERIL) 10 MG tablet Take 10 mg by mouth once daily as needed * cetirizine (ZYRTEC) 10 MG tablet(Started 08/27/2020) Take 10 mg by mouth once daily * albuterol HFA (PROVENTIL;VENTOLIN;PROAIR) 108 (90 Base) MCG/ACT inhaler Inhale 2 puffs by mouth every 4 hours as needed * albuterol (PROVENTIL;VENTOLIN) (2.5 MG/3ML) 0.083% nebulizer solution Inhale 3 mL by mouth every 4 hours as needed WITH NEBULIZER * clobetasol (TEMOVATE) 0.05 % ointment(Started 05/26/2022) Apply to affected area 2 times daily 2 refills by 05/26/2023 * hydrOXYzine HCl (Atarax) 50 MG tablet(Started 11/16/2024) Take 1 (one) tablet by mouth 4 times daily as needed for Itching Active Problems Problem Noted Date Diagnosed Date Cellulitis of finger of right hand 05/26/2022 Neuritis of right sural nerve 05/20/2022 Bipolar 1 disorder 12/18/2021 Cellulitis of right upper extremity 12/18/2021 GERD without esophagitis 12/18/2021 HTN (hypertension) 12/18/2021 Peripheral neuropathy 12/18/2021 Anxiety with depression 07/29/2021 Body mass index (BMI) of 30.0-30.9 in adult 06/2021 Candidiasis of mouth 07/29/2021 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 07/29/2021 Edema 07/29/2021 Hernia of anterior abdominal wall 07/29/2021 Pericardial effusion with cardiac tamponade 06/2021 Acute viral hepatitis 08/16/2015 Social History Tobacco Use Types Packs/Day Years [...] Comments Blood Pressure 158/98 11/16/2024 7:00 AM [employer] Pulse 78 11/16/2024 7:00 AM [employer] Temperature 36.3 ??C (97.3 ??F) 11/16/2024 2:00 AM CS T Respiratory Rate 16 11/16/2024 7:00 AM [employer] Oxygen Saturation 99% 11/16/2024 7:00 AM [employer] Inhaled Oxygen Concentration - - Weight 72.6 kg (160 lb) 11/15/2024 9:46 PM [employer] Height 170.2 cm (5' 7 ) 11/15/2024 9:46 PM [employer] Body Mass Index 25.06 11/15/2024 9:46 PM [employer] Procedures * CARDIAC EKG ORDER(Performed 11/19/2024) * TROPONIN-I HIGH SENSITIVE REFLEX 1HOUR(Performed 11/16/2024) * TROPONIN-I HIGH SENSITIVE BASELINE + 1HR(Performed 11/15/2024) * HCG BETA BLOOD QUANTITATIVE(Performed 11/15/2024) * COMPREHENSIVE METABOLIC PANEL(Performed 11/15/2024) * CBC W AUTO DIFFERENTIAL(Performed 11/15/2024) * XR CHEST 2VW(Performed 11/15/2024) Performed for Chest pain, unspecified type * EKG 12-LEAD(Performed 11/15/2024) Performed for Chest pain, unspecified type * [place] INTRALESIONAL INJECTION(S) 7 OR LESS(Performed 05/26/2022) Performed for Necrobiosis lipoidica * IL KENALOG 40 INJ(Performed 05/26/2022) Performed for Necrobiosis lipoidica * [place] PUNCH BX SKIN SINGLE LESION(Performed 08/01/2021) Performed for Rash and other nonspecific skin eruption * DERMATOPATHOLOGY(Performed 07/21/2021) Performed for Rash and other nonspecific skin eruption * US ABDOMEN LIMITED(Performed 08/18/2015) * PHOSPHORUS BLOOD(Performed 08/18/2015) * MAGNESIUM BLOOD(Performed 08/18/2015) * BASIC METABOLIC PANEL (CALCIUM TOTAL)(Performed 08/18/2015) * HEPATIC FUNCTION PANEL(Performed 08/18/2015) * PT-INR [facility](Performed 08/18/2015) * PHOSPHORUS BLOOD(Performed 08/17/2015) * MAGNESIUM BLOOD(Performed 08/17/2015) * BASIC METABOLIC PANEL (CALCIUM TOTAL)(Performed 08/17/2015) * PT-INR [facility](Performed 08/17/2015) * GLUCOSE ACCUCHECK(Performed 08/17/2015) * PT-INR [facility](Performed 08/17/2015) * HEPATIC FUNCTION PANEL(Performed 08/17/2015) * LACTIC ACID BLOOD(Performed 08/17/2015) * PHOSPHORUS BLOOD(Performed 08/17/2015) * BASIC METABOLIC PANEL (CALCIUM TOTAL)(Performed 08/17/2015) * MAGNESIUM BLOOD(Performed 08/17/2015) * GLUCOSE ACCUCHECK(Performed 08/17/2015) * GLUCOSE ACCUCHECK(Performed 08/17/2015) * BASIC METABOLIC PANEL (CALCIUM TOTAL)(Performed 08/17/2015) * MAGNESIUM BLOOD(Performed 08/17/2015) * PHOSPHORUS BLOOD(Performed 08/17/2015) * PT-INR [facility](Performed 08/17/2015) * BASIC METABOLIC PANEL (CALCIUM TOTAL)(Performed 08/16/2015) * MAGNESIUM BLOOD(Performed 08/16/2015) * PHOSPHORUS BLOOD(Performed 08/16/2015) * PT-INR [facility](Performed 08/16/2015) * DRUG ABUSE PANEL 10-20+ETHANOL URINE NO CONFIRM(Performed 08/16/2015) * CULTURE URINE(Performed 08/16/2015) * URINALYSIS W/MICROSCOPIC NO CULTURE(Performed 08/16/2015) * HEPATITIS C RNA QUANTITATIVE(Performed 08/16/2015) * HERPES SIMPLEX 1+2 ANTIBODY IGG/IGM PANEL(Performed 08/16/2015) * HIV-1 HIV-2 ANTIGEN/ANTIBODY(Performed 08/16/2015) * LACTIC ACID BLOOD(Performed 08/16/2015) * MONONUCLEOSIS SCREEN(Performed 08/16/2015) * COMPREHENSIVE METABOLIC PANEL(Performed 08/16/2015) * MICROSOMAL ANTIBODY LIVER/KIDNEY(Performed 08/16/2015) * SMOOTH MUSCLE ANTIBODY(Performed 08/16/2015) * NETTE W/REFLEX IFA PATTERN(Performed 08/16/2015) * FERRITIN(Performed 08/16/2015) * HEPATITIS SCREEN ACUTE(Performed 08/16/2015) * CERULOPLASMIN(Performed 08/16/2015) * TSH(Performed 08/16/2015) * ACETAMINOPHEN LEVEL(Performed 08/16/2015) * AMYLASE BLOOD(Performed 08/16/2015) * LIPASE BLOOD(Performed 08/16/2015) * COMPREHENSIVE METABOLIC PANEL(Performed 08/16/2015) * PTT H(Performed 08/16/2015) * PT-INR [facility](Performed 08/16/2015) * CBC W AUTO DIFFERENTIAL(Performed 08/16/2015) * CBC W AUTO DIFFERENTIAL(Performed 08/16/2015) * CULTURE BLOOD(Performed 08/16/2015) * CULTURE BLOOD(Performed 08/16/2015) * XR CHEST 2VW(Performed 05/17/2014) * OSMOLALITY BLOOD(Performed 05/17/2014) * CK + CKMB PANEL(Performed 05/17/2014) * TROPONIN I(Performed 05/17/2014) * COMPREHENSIVE METABOLIC PANEL(Performed 05/17/2014) * SALICYLATE LEVEL BLOOD(Performed 05/17/2014) * BLOOD GASES ROSY(Performed 05/17/2014) * CBC W/O DIFFERENTIAL(Performed 05/17/2014) * EKG 12-LEAD(Performed 05/17/2014) Results * CARDIAC EKG ORDER (11/19/2024 10:58 AM [employer]) Narrative 11/19/2024 10:58 AM [employer] Ordered by an unspecified provider. Scanned Document CARDIAC SERVICES ORD ERABLES * TROPONIN-I HIGH SENSITIVE REFLEX 1HOUR (11/16/2024 12:41 AM [employer]NAL [employer]LECTRIC[employer]) [facility] Troponin I High Sensitive 4 <=14 ng/L 11/16/2024 1:22 AM [employer]NAL [employer]LECTR[employer]IAN [facility] [place] Troponin I HS <0 <6 ng/L 11/16/2024 1:22 AM [employer]NAL [employer]LECT[employer] [facility] Blood BLOOD SPECIMEN / Unknown Venipuncture / Unknown 11/16/2024 12:41 AM [employer] 11/16/2024 12:49 AM [employer] Trav Stanley MD LAB - CHEMISTRY ORDE MEAGAN [facility] [address] [place] [address], [facility] [phone] * TROPONIN-I HIGH SENSITIVE BASELINE + 1HR (11/15/2024 11:41 PM [employer]) [facility] Troponin I High Sensitive 6 <=14 ng/L 11/16/2024 12:26 AM [facility] Blood BLOOD SPECIMEN / Unknown Venipuncture / Unknown 11/15/2024 11:41 PM [employer] 11/15/2024 11:53 PM [employer] Trav Stanley MD LAB - CHEMISTRY [facility] Organization Address City/State/ZIP Co de Phone Number [facility] [address] [place] [address] [phone] * (ABNORMAL) CBC W AUTO DIFFERENTIAL (11/15/2024 11:41 PM [employer]) Only the most recent of3 resultswithin the time period is included. [facility] WBC 11.3(H) 4.0 - 10.7 x10E9/L 11/15/2024 11:57 PM [facility] RBC Count 4.64 3.90 - 5.20 x10E12/L 11/15/2024 11:57 PM [facility] Hemoglobin 14.4 11.9 - 15.8 g/dL 11/15/2024 11:57 PM [facility] Hematocrit 41.1 34.8 - 46.1 % 11/15/2024 11:57 PM [facility] MCV 88.6 80.0 - 98.0 fL 11/15/2024 11:57 PM [facility] MCH 31.0 26.7 - 33.6 pg 11/15/2024 11:57 PM [facility] MCHC 35.0 31.7 - 36.3 g/dL 11/15/2024 11:57 PM [facility] RDW-CV 12.4 11.3 - 14.8 % 11/15/2024 11:57 PM [facility] Platelet Count 315 150 - 420 x10E9/L 11/15/2024 11:57 PM [facility] MPV 9.0 7.8 - 11.4 fL 11/15/2024 11:57 PM [facility] Neutrophil % 66.6 41.0 - 74.0 % 11/15/2024 11:57 PM [facility] Lymphocyte % 24.4 17.0 - 47.0 % 11/15/2024 11:57 PM [facility] Monocyte % 7.2 3.0 - 11.0 % 11/15/2024 11:57 PM [facility] Eosinophil % 1.0 0.0 - 7.0 % 11/15/2024 11:57 PM [facility] Basophil % 0.4 0.0 - 1.6 % 11/15/2024 11:57 PM [facility] Immature Granulocytes % 0.4 0.0 - 1.0 % 11/15/2024 11:57 PM [facility] Neutrophil Absolute 7.53(H) 1.60 - 7.50 x10E9/L 11/15/2024 11:57 PM [facility] Lymphocyte Absolute 2.75 1.00 - 4.40 x10E9/L 11/15/2024 11:57 PM [facility] Monocyte Absolute 0.81 0.15 - 1.00 x10E9/L 11/15/2024 11:57 PM [facility] Eosinophil Absolute 0.11 0.00 - 0.60 x10E9/L 11/15/2024 11:57 PM [facility] Basophil Absolute 0.05 0.00 - 0.13 x10E9/L 11/15/2024 11:57 PM [facility] Blood BLOOD SPECIMEN / Unknown Venipuncture / Unknown 11/15/2024 11:41 PM [employer] 11/15/2024 11:53 PM [facility] [email or web address]] Trav Stanley MD LAB - HEMATOLOGY ORD ERABLES [facility] [address] [place] [address], [facility] [phone] * (ABNORMAL) COMPREHENSIVE METABOLIC PANEL (11/15/2024 11:41 PM [employer]) Only the most recent of4 resultswithin the time period is included. BUN 19 7 - 26 mg/dL 11/16/2024 12:22 AM [facility] Creatinine 0.86 0.56 - 0.96 mg/dL 11/16/2024 12:22 AM [facility] Sodium 145 136 - 145 mmol/L 11/16/2024 12:22 AM [facility] Potassium 4.5 3.5 - 4.5 mmol/L 11/16/2024 12:22 AM [facility] Chloride 113(H) 98 - 107 mmol/L 11/16/2024 12:22 AM [facility] CO2 23 22 - 29 mmol/L 11/16/2024 12:22 AM [facility] Glucose 95 70 - 99 mg/dL 11/16/2024 12:22 AM [facility] Calcium 9.5 8.4 - 10.2 mg/dL 11/16/2024 12:22 AM [facility] Protein Total 7.0 6.0 - 8.3 g/dL 11/16/2024 12:22 AM [facility] Albumin 4.1 3.4 - 5.0 g/dL 11/16/2024 12:22 AM [facility] Bilirubin Total 0.3 0.2 - 1.2 mg/dL 11/16/2024 12:22 AM [facility] Alkaline Phosphatase 139 40 - 150 U/L 11/16/2024 12:22 AM [facility] ALT 28 5 - 55 U/L 11/16/2024 12:22 AM [facility] AST 24 5 - 34 U/L 11/16/2024 12:22 AM [facility] Anion Gap 9 6 - 16 11/16/2024 12:22 AM [facility] BUN/Creatinine Ratio 22 7 - 23 11/16/2024 12:22 AM [facility] Osmolality Calculated 302(H) 275 - 295 mOsm/kg 11/16/2024 12:22 AM [facility] Albumin/Globulin Ratio 1.4 1.1 - 2.3 11/16/2024 12:22 AM [facility] eGFR by CKD-EPI 81(L) >=90 mL/min/1.7 3 m2 11/16/2024 12:22 AM [facility] Blood BLOOD SPECIMEN / Unknown Venipuncture / Unknown 11/15/2024 11:41 PM [facility] [[email or web address]] 11/15/2024 11:53 PM [employer] Trav Stanley MD LAB - CHEMISTRY [facility] Performing Organization Address [facility] Co de Phone Number [address] [address], [facility] [phone] * HCG BETA BLOOD QUANTITATIVE (11/15/2024 11:41 PM [employer]) Beta-hCG Total Quantitative <3 mIU/mL 11/16/2024 12:28 AM [employer] [facility] Comment: HCG Numeric Result Interpretation: ? Non- [...] Unknown Venipuncture / Unknown 11/15/2024 11:41 PM [employer] 11/15/2024 11:53 PM [employer] Trav Stanley MD LAB - CHEMISTRY [facility] Performing Organization Address [facility] Co de Phone Number [address] [address], [facility] [phone] * XR CHEST 2VW (11/15/2024 11:05 PM [employer]) Only the most recent of2 resultswithin the time period is included. Anatomical Region Laterality Modality Chest Digital Radiogra phy 11/15/2024 11:5 0 PM [employer] Narrative 11/16/2024 8:03 AM [employer] PROCEDURE: ??XR CHEST 2VW, DATE/TIME OF EXAM: ??11/15/2024 11:05 PM, LOCATION [facility] INDICATION: R07.9: Chest pain, unspecified type ADDITIONAL CLINICAL INFORMATION: Ordering Provider Reason For Exam: ??CP Comparison: Chest x-ray 05/17/2014 FINDINGS/IMPRESSION: There is no focal consolidation, pleural effusion, or pneumothorax. The cardiomediastinal silhouette is normal. No displaced fractures visualized. A linear clip/marker projects over the right breast. Report dictated by Zane Chaparro MD (residential director). Jeffery De Guzman MD have personally reviewed and interpreted this examination/study. > Interpreting Provider: Jeffery Stein MD on 11/16/2024 8:03 AM Procedure Note Jeffery Stein MD - 11/16/2024 PROCEDURE: XR CHEST 2VW, DATE/TIME OF EXAM: 11/15/2024 11:05 PM,LOCATION [facility] INDICATION: R07.9: Chest pain, unspecified type ADDITIONAL CLINICAL INFORMATION: Ordering Provider Reason For Exam: CP Comparison: Chest x-ray 05/17/2014 FINDINGS/IMPRESSION: There is no focal consolidation, pleural effusion, or pneumothorax. The cardiomediastinal silhouette is normal. No displaced fracturesvisualized. A linear clip/marker projects over the right breast. Report dictated by Zane Chaparro MD (residential director). I, Jeffery Stein MD have personally reviewed and interpreted this examination/study. > Interpreting Provider: Jeffery Stein MD on 11/16/2024 8:03 AM Trav Stanley MD DIAGNOSTIC IMAGING O RDERABLES * EKG 12-LEAD (11/15/2024 10:29 PM [employer]) Only the most recent of2 resultswithin the time period is included. Ventricular Rate 71 BPM [facility] MUSE Atrial Rate 71 BPM [facility] MUSE P-R Interval 160 ms [facility] MUSE QRS Duration ms 78 ms [facility] MUSE Q-T Interval ms 388 ms [facility] MUSE QTC Calculation (Bezet) 421 ms [facility] MUSE Calculated P [place] 78 degrees [facility] MUSE Calculated R [place] 65 degrees [facility] MUSE Calculated T [place] 60 degrees [facility] MUSE Interpretation EKG NORMAL SINUS RHYTHM POSSIBLE LEFT ATRIAL ENLARGEMENT BORDERLINE ECG NO PREVIOUS ECGS AVAILABLE Confirmed by VANNA CAMARENA MD ([id number]) on 11/18/2024 2:09:48 PM [facility] MUSE 11/15/2024 10:2 9 PM [employer] 11/18/2024 2:09 PM [employer] Devon Caceres MD ECG ORDERABLES H MUSE * IL KENALOG 40 INJ, [place] INTRALESIONAL INJECTION(S) 7 OR LESS (05/26/2022 9:59 AM CDT) Narrative Aury Garcia MD - 05/26/2022 9:59 AM CDT Candace Strickland MD ? 05/26/2022 10:01 AM The side effects of intralesional triamcinolone were discussed with patient, including petechiae and purpura, local lipoatrophy, striae and pigment change. 0.6mL of Triamcinolone 20mg/mL was injected in to 1 lesion (RLE) with a 1 cc syringe and a 30 gauge needle. Triamcinolone 40 mg/ml [facility] [id number] used Candace Strickland MD Dermatology Resident PGY-4 Aury Garcia MD PROCEDURE/MINOR SURG ICAL ORDERABLES * IL PUNCH BX SKIN SINGLE LESION (08/01/2021 5:37 PM CDT) Narrative Fish Calvin MD - 08/01/2021 5:37 PM CDT Fish Calvin MD ? 08/01/2021 ??5:38 PM Punch biopsy Risks, benefits and alternatives to punch biopsy were discussed with the patient. Pt understands the possibility for the following: ??Bleeding, infection, scar (100% chance), the possibility of non-diagnostic reading and the potential need for further testing or treatment, including surgical. Stated clearly the size of the specimen and the need to obtain adequate tissue for the most accurate path reading. Pt accepts all of above, verbal consent was obtained. Location: R lower leg Punch biopsy: 6 mm Skin prep: Alcohol Anesthesia: 1% lidocaine with epinephrine Closure: 4-0 nylon suture Dressing and wound care discussed. Fish Calvin MD PROCEDURE/MINOR SURG ICAL ORDERABLES * DERMATOPATHOLOGY (07/21/2021 3:33 AM CDT) Case Report Dermatopathology Report ? Case: [id number] ? Authorizing Provider: ??Fish aClvin MD ? Collected: ? 07/21/2021 03:33 AM ? Ordering Location: ? [facility] ?Received: ?07/22/2021 06:44 AM ? Dermatology ? Pathologist: ? Nilton Perez MD ? Specimen: ?Skin, right lower leg ? 1 5:52 PM CDT DERMATOPATHOLOGY LABORATORY Final Diagnosis Specimen A. 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 5:52 PM CDT DERMATOPATHOLOGY LABORATORY Gross Description Specimen A: Received is one formalin filled container labeled with the patient's name and designated right lower leg. The specimen consists of a punch biopsy measuring [id number], bisected. Jar 0. 1 5:52 PM CDT DERMATOPATHOLOGY LABORATORY Microscopic Description Specimen A. SKIN, right lower leg: In the reticular dermis, there is a superficial and deep, perivascular lymphoplasmacytic infiltrate. There are histiocytes in the interstitium arranged in layered palisades around foci of degenerated collagen. 1 5:52 PM CDT DERMATOPATHOLOGY LABORATORY Disclaimer An external and internal positive and negative controls are appropriate for the histochemical, immunohistochemical and immunofluorescence stain(s) in this case (if any), except where stated explicitly. The performance characteristics of the stain(s) cited in this report were developed and its performance characteristic determined by the Dermatopathology Laboratory at [facility], directed by Dr. Heaven Perez. These tests need not be, and therefore are not, approved by the [place] Food and Drug Administration. The tests are used for clinical purposes. Billing Codes Specimen Charges Stain Charges 99751 1 1 5:52 PM CDT DERMATOPATHOLOGY LABORATORY Embedded Images 1 5:52 PM CDT DERMATOPATHOLOGY LABORATORY Pathology/Cytolo gy TISSUE SPECIMEN FROM SKIN / Unknown 07/21/2021 3:33 AM CDT 07/22/2021 6:44 AM CDT Fish Calvin MD LAB - PATHOLOGY/CYTO LOGY ORDERABLES DERMATOPATHOLOGY LABORATORY [facility] - Department of Dermatology [address] [phone] * US ABDOMEN LIMITED (08/18/2015 2:08 PM CDT) Anatomical Region Laterality Modality Abdomen Other Impressions 08/18/2015 4:06 PM CDT Impression: No discrete liver lesion or biliary dilation. Report dictated by Josiah Lynch M.D., MPH (resident). This report was approved ??by Josiah Lynch M.D. ?? on 08/18/2015 3:[address] SABRINA De Guzman M.D. have personally reviewed and interpreted this examination/study. This report was electronically signed by SABRINA HARRIS M.D. ??on 08/18/2015 4:06 PM . Narrative 08/18/2015 4:06 PM CDT Exam: Abdominal Ultrasound Limited History: 44-year-old female with acute hepatitis. Comparison: None. Findings: The liver is normal in echotexture. No discrete mass or intrahepatic biliary dilation is seen. No ascites is present. Color Doppler evaluation demonstrates patency of the hepatic and portal veins. The gallbladder is surgically absent. The common bile duct is not dilated, measuring 9 mm. The right kidney measures 11.8 cm in length. There is no evidence of hydronephrosis or calculus. The visible pancreatic head and body show normal echogenicity. The spleen measures 12.6 cm in length. Procedure Note Sabrina Harris MD - 02/18/2018 Exam: Abdominal Ultrasound Limited History: 44-year-old female with acute hepatitis. Comparison: None. Findings: The liver is normal in echotexture. No discrete mass or intrahepaticbiliary dilation is seen. No ascites is present. Color Doppler evaluationdemonstrates patency of the hepatic and portal veins. The gallbladder is surgically absent. The common bile duct is not dilated,measuring 9 mm. The right kidney measures 11.8 cm in length. There is no evidence ofhydronephrosis or calculus. The visible pancreatic head and body shownormal echogenicity. The spleen measures 12.6 cm in length. IMPRESSION Impression: No discrete liver lesion or biliary dilation. Report dictated by Josiah Lynch M.D., MPH (resident). This report was approved by Josiah Lynch M.D. on 08/18/20153:28 PM . I, Dr. SABRINA HARIRS M.D. have personally reviewed and interpreted thisexamination/study. This report was electronically signed by SABRINA HARRIS M.D. on 08/18/20154:06 PM . Colton Magana MD US ORDERABLES * PT-INR [facility] (08/18/2015 5:00 AM CDT) Only the most recent of6 resultswithin the time period is included. PT 13.4 12.1 - 14.8 Seconds [facility] INR 1.0 See Comment [facility] Comment: Suggested therapeutic range for low-intensity coumadin therapy for venous thromboembolism prophylaxis is an INR of 2.0-3.0. ??For high risk patients ([facility] Valve Prosthesis, Atrial Fibrillation, history of TIA/stroke), suggested prophylactic therapeutic range is an INR of 2.5-3.5. Blood specimen (specimen) BLOOD SPECIMEN / Unknown 08/18/2015 5:00 AM CDT 08/18/2015 5:16 AM CDT Narrative [facility] - 08/18/2015 5:30 AM CDT Is patient on Heparin, Argatroban or Dabigatran?->N Colton Magana MD LAB - COAGULATION OR DERABLES Performing Organization Address City/State/[facility] Co de Phone Number [address] [phone] * (ABNORMAL) BASIC METABOLIC PANEL (CALCIUM TOTAL) (08/18/2015 5:00 AM CDT) Only the most recent of5 resultswithin the time period is included. BUN 7 7 - 26 mg/dL [facility] Creatinine 0.5(L) 0.6 - 1.2 mg/dL [facility] Sodium 140 136 - 145 mmol/L [facility] Potassium 3.3(L) 3.5 - 4.5 mmol/L [facility] Chloride 111(H) 98 - 107 mmol/L [facility] CO2 24 22 - 29 mmol/L [facility] Glucose 140(H) 70 - 115 mg/dL [facility] Calcium 8.0(L) 8.4 - 10.2 mg/dL [facility] Anion Gap 8 8 - 18 [facility] BUN/Creatinine Ratio 14 7 - 23 [facility] Osmolality Calculated 276 270 - 300 mOsm/kg [facility] eGFR >60 >60 mL/min/1.7 3 m2 [facility] Blood specimen (specimen) BLOOD SPECIMEN / Unknown 08/18/2015 5:00 AM CDT 08/18/2015 5:16 AM CDT Colton Magana MD LAB - CHEMISTRY RICA RHODES [address] [phone] * PHOSPHORUS BLOOD (08/18/2015 5:00 AM CDT) Only the most recent of5 resultswithin the time period is included. Phosphorus 2.5 2.3 - 4.7 mg/dL [facility] Blood specimen (specimen) BLOOD SPECIMEN / Unknown 08/18/2015 5:00 AM CDT 08/18/2015 5:16 AM CDT Colton Magana MD LAB - CHEMISTRY RICA RHODES Performing Organization Address [facility] Co de Phone Number [address] [phone] * (ABNORMAL) HEPATIC FUNCTION PANEL (08/18/2015 5:00 AM CDT) Only the most recent of2 resultswithin the time period is included. Protein Total 5.1(L) 6.0 - 8.3 g/dL [facility] Albumin 2.6(L) 3.4 - 5.0 g/dL [facility] Bilirubin Total 1.1 0.2 - 1.2 mg/dL [facility] Bilirubin Conjugated 0.6(H) 0.0 - 0.5 mg/dL [facility] Bilirubin Unconjugated 0.5 Unconjugated Bilirubin is a calculated value: Reference ranges have not been established. mg/dL [facility] Alkaline Phosphatase 112 40 - 150 Units/L [facility] ALT 2,288(H) 0 - 55 Units/L [facility] AST 403(H) 5 - 34 Units/L [facility] Albumin/Globuli n Ratio 1.0(L) 1.1 - 2.3 [facility] Blood specimen (specimen) BLOOD SPECIMEN / Unknown 08/18/2015 5:00 AM CDT 08/18/2015 5:16 AM CDT Colton Magana MD LAB - CHEMISTRY RICA RHODES Performing Organization Address [facility] Co de Phone Number [address] [phone] * MAGNESIUM BLOOD (08/18/2015 5:00 AM CDT) Only the most recent of5 resultswithin the time period is included. Pathologist [facility] Magnesium 1.8 1.6 - 2.6 mg/dL [facility] Blood specimen (specimen) BLOOD SPECIMEN / Unknown 08/18/2015 5:00 AM CDT 08/18/2015 5:16 AM CDT Colton Magana MD LAB - CHEMISTRY RICA RHODES Performing Organization Address [facility] Co de Phone Number [address] [phone] * (ABNORMAL) GLUCOSE ACCUCHECK (08/17/2015 1:46 PM CDT) Only the most recent of3 resultswithin the time period is included. [facility] Glucose, Fingerstick 125(H) 70-115mg/d L mg/dL [facility]) Comment:Biochemistry Technician: RICHARD DAY 08/17/2015 1:46 PM CDT Colton Magana MD LAB - CHEMISTRY RICA RHODES Performing Organization Address [facility] Co de Phone Number [facility]) * LACTIC ACID BLOOD (08/17/2015 5:50 AM CDT) Only the most recent of2 resultswithin the time period is included. [facility] Lactic Acid-Stat 1.4 0.5 - 2.2 mmol/L [facility] Blood specimen (specimen) BLOOD SPECIMEN / Unknown 08/17/2015 5:50 AM CDT 08/17/2015 6:00 AM CDT Colton Magana MD LAB - CHEMISTRY RICA RHODES [facility] [address] [place] [address], [facility] [phone] * (ABNORMAL) DRUG ABUSE PANEL 10-20+ETHANOL URINE NO CONFIRM (08/16/2015 4:34 PM CDT) Amphetamines Screen Urine Negative Negative : < 1000 ng/mL [facility] Barbiturates Screen Urine Negative Negative : < 200 ng/mL [facility] Benzodiazepine Screen Urine Negative Negative : < 200 ng/mL [facility] Opiates Urine Positive(A) Negative : < 300 ng/mL [facility] Comment: Positive urine opiate screening results should be confirmed by another generally accepted non-immunological method such as gas chromatography or mass spectrometry. ? Cocaine Metabolites Urine Negative Negative : < 300 ng/mL [facility] Phencyclidine Screen Urine Negative Negative : < 25 ng/ml [facility] Cannabinoids Screen Urine Negative Negative : <50 ng/mL [facility] Methadone Screen Urine Negative Negative : < 300 ng/mL [facility] Urine specimen (specimen) URINE / Unknown 08/16/2015 4:34 PM CDT 08/16/2015 4:39 PM CDT Narrative [facility] - 08/16/2015 4:57 PM CDT FIO2->21 The Urine Toxicology Screening Panel does not screen for Propoxyphene, Meprobamate, Carisoprodol, Trazodone, [id number] medications and/or volatiles (Acetone, Isopropanol, Methanol or Ethylene Glycol). Ethanol, Salicylate, Acetaminophen, Tricyclic Antidepressants and several therapeutic drugs may be individually assayed in serum or plasma specimen. Toxicology testing by the [facility] is an aid to medical diagnosis and treatment of patients. No documented chain of custody was maintained. Results are intended to be used for clinical purposes only. ? Colton Magana MD LAB - URINE CHEMISTR Y ORDERABLES Performing Organization Address [facility] de Phone Number [address] [phone] * CULTURE URINE (08/16/2015 4:33 PM CDT) Culture Urine Less than 10,000 CFU/ML of Normal Urogenital/ Skin Marina after 48 Hours [facility] Comment: Urine specimen (specimen) (Urine, unspecified source) 08/16/2015 4:33 PM CDT 08/16/2015 4:39 PM CDT Narrative [facility] - 08/18/2015 12:03 PM CDT Specimen Type->Urine Colton Magana MD LAB - MICROBIOLOGY O RDERABLES Performing Organization Address [facility] de Phone Number [address] [phone] * (ABNORMAL) URINALYSIS W/MICROSCOPIC NO CULTURE (08/16/2015 4:32 PM CDT) Color UA Yellow Straw, Yellow, Colorless, Light Yellow [facility] Clarity UA Clear Clear [facility] Specific [place] UA 1.008 1.001 - 1.030 [facility] pH UA 6.0 5.0 - 8.0 [facility] Protein UA Trace(A) <=20 mg/dL [facility] Glucose UA 70(A) Negative mg/dL [facility] Ketone UA Negative Negative mg/dL [facility] Bilirubin UA Negative Negative mg/dL [facility] Blood UA Negative Negative [facility] Nitrite UA Negative Negative [facility] Leukocyte Esterase Negative Negative [facility] Urobilinogen UA <2.0 <2.0 mg/dL [facility] RBC UA 6 0 - 8 /HPF [facility] WBC UA 1 0 - 2 /HPF [facility] Squamous Epithelial Cells UA 1 0 - 1 /HPF [facility] Urine specimen (specimen) (Urine, unspecified source) 08/16/2015 4:32 PM CDT 08/16/2015 4:39 PM CDT Colton Magana MD LAB - URINALYSIS ORD ERABLES Performing Organization Address City/[facility]/ZIP Co de Phone Number [address] [phone] * HIV-1 HIV-2 ANTIGEN/ANTIBODY (08/16/2015 12:58 PM CDT) Pathologist [facility] HIV Antigen/Antibod y 1 & 2 Non-reacti ve Non-react drew [facility] Comment: Neither HIV-1 p24 Antigen nor HIV-1/HIV-2 Antibodies are detected. ? Blood specimen (specimen) BLOOD SPECIMEN / Unknown 08/16/2015 12:58 PM CDT 08/16/2015 12:58 PM CDT Colton Magana MD LAB - HEMATOLOGY ORD ERABLES Performing Organization Address [facility]/ZIP Co de Phone Number [address] [phone] * HEPATITIS C RNA QUANTITATIVE PCR (08/16/2015 12:58 PM CDT) Pathologist [facility] Hepatitis C Virus RNA PCR Specimen: 1 ml Serum Reference: [id number] Test: Hepatitis C RT-PCR (Quantitative) RESULT Not Detected Reference Range Not Detected INTERPRETATION The quantitative Hepatitis C viral RNA RT-PCR determination was performed on a serum sample and is reported in IU/ml. Hepatitis C viral RNA was not detected. COMMENT The Hepatitis C viral (HCV) RNA analysis utilized a serum sample, real-time reverse sharepoint web developer PCR, and is reported as Not Detected, Detected (<12 IU/ml), Quantity (IU/ml) or >100,000,000 IU/ml. The analytical sensitivity of the assay is 5 IU/ml (90% of samples with this HCV RNA level were detected). Values less than 5 IU/ml are reported as Not Detected. The linear range is from 12 IU/ml to 100,000,000 IU/ml. Values greater than or equal to 5 IU/ml and <12 IU/ml are reported as Detected (<12 IU/ml). Values greater than 100,000,000 IU/ml are reported as >100,000,000 IU/ml. The detection/quantit ation of HCV RNA in serum is based on the isolation of HCV RNA with reverse sharepoint web developer of genomic HCV RNA followed by real-time PCR in the presence of an unrelated RNA internal control. The internal control ensures that RNA is isolated, and that no general significant inhibitors of the RT-PCR process are present. This analysis was performed using an [place] FDA approved test methodology ([employer] RealTime HCV). Test performed at [facility] [employer] [facility], [address] [place] [address] ??[id number] This case has been personally reviewed and interpreted by the attending (teaching) pathologist. Final Diagnosis performed by Familia Lezama PHD. Electronically signed 08/22/2015 [facility] ([place]) Blood specimen (specimen) BLOOD SPECIMEN / Unknown 08/16/2015 12:58 PM CDT 08/16/2015 12:58 PM CDT Colton Magana MD LAB - CHEMISTRY RICA RHODES [facility] ([place]) * (ABNORMAL) HERPES SIMPLEX 1+2 ANTIBODY IGG/IGM PANEL (08/16/2015 12:58 PM CDT) Herpes Simplex Virus Antibody IgM I/II Combination <0.91 0.00 - 0.90 Ratio [facility] ([place]) Comment: ? Negative ?<0.91 ? Equivocal 0.91 - 1.09 ? Positive ?>1.09 Herpes Simplex Virus 1 Antibody IgG Type Specific 10.80(H) 0.00 - 0.90 index [facility] ([facility] Comment: ? Negative ?<0.91 ? Equivocal 0.91 - 1.09 ? Positive ?>1.09 Note: Negative indicates no antibodies detected to HSV-1. Equivocal may suggest early infection. ??If clinically appropriate, retest at later date. Positive indicates antibodies detected to HSV-1. Herpes Simplex Virus 2 Antibody IgG Type Specific <0.91 0.00 - 0.90 index [facility] ([place]) Comment: ? Negative ?<0.91 ? Equivocal 0.91 - 1.09 ? Positive ?>1.09 Note: Negative indicates no antibodies detected to HSV-2. Equivocal may suggest early infection. ??If clinically appropriate, retest at later date. Positive indicates antibodies detected to HSV-2. Blood specimen (specimen) BLOOD SPECIMEN / Unknown 08/16/2015 12:58 PM CDT 08/16/2015 12:58 PM CDT Narrative [facility] ([facility]) - 08/19/2015 5:15 PM CDT Performed at: ??[address] ??[id number] Counter Help: Roldan Lerma PhD, Phone: ??[phone] Colton Magana MD LAB - CHEMISTRY RICA RHODES Performing Organization Address City/[facility]/ZIP Co de Phone Number [facility]) * MONONUCLEOSIS SCREEN (08/16/2015 5:00 AM CDT) [facility] Mononucleosis Qualitative Negative Negative [facility] Blood specimen (specimen) BLOOD SPECIMEN / Unknown 08/16/2015 5:00 AM CDT 08/16/2015 5:27 AM CDT Colton Magana MD LAB - CHEMISTRY RICA RHODES Performing Organization Address [facility]/ZIP Co de Phone Number [address] [phone] * NETTE W/REFLEX IFA PATTERN (08/16/2015 2:50 AM CDT) [facility] NETTE None Detected None Detected [facility] Blood specimen (specimen) BLOOD SPECIMEN / Unknown 08/16/2015 2:50 AM CDT 08/16/2015 3:07 AM CDT Colton Magana MD LAB - SEROLOGY ORDER KARIS Performing Organization Address [facility] Co de Phone Number [address] [phone] * MICROSOMAL ANTIBODY LIVER/KIDNEY (08/16/2015 2:50 AM CDT) [facility] Liver-Kidney Microsomal Antibody <1.0 0.0 - 20.0 Units [facility]) Comment: ?Negative ?0.0 - 20.0 ?Equivocal ??20.1 - 24.9 ?Positive ? >24.9 LKM type 1 antibodies are detected in patients with autoimmune hepatitis type 2 and in up to 8% of patients with chronic HCV infection. Blood specimen (specimen) BLOOD SPECIMEN / Unknown 08/16/2015 2:50 AM CDT 08/16/2015 3:07 AM CDT Narrative [facility] ([place]) - 08/18/2015 3:22 PM CDT Performed at: ??[address] - [address] ??[id number] Counter Help: Roldan Lerma PhD, Phone: ??[phone] Colton Magana MD LAB - CHEMISTRY RICA RHODES Performing Organization Address [facility] Co de Phone Number [facility]) * (ABNORMAL) CERULOPLASMIN (08/16/2015 2:50 AM CDT) Pathologist [facility] Ceruloplasmin 19(L) 20 - 60 mg/dL [facility] Blood specimen (specimen) BLOOD SPECIMEN / Unknown 08/16/2015 2:50 AM CDT 08/16/2015 3:07 AM CDT Colton Magana MD LAB - CHEMISTRY RICA RHODES Performing Organization Address [facility] Co de Phone Number [address] [phone] * SMOOTH MUSCLE ANTIBODY (08/16/2015 2:50 AM CDT) F-Actin Antibody IgG 4.6 0.0 - 19.9 Units [facility] Comment: F-Actin Antibody Numeric Result Interpretation: ?<20.0 Units: ??Negative ?20.0 - 30.0 Units: ??Weak Positive ?>30.0 Units: ??Moderate to Strong Positive ? Blood specimen (specimen) BLOOD SPECIMEN / Unknown 08/16/2015 2:50 AM CDT 08/16/2015 3:07 AM CDT Colton Magana MD LAB - SEROLOGY ORDER KARIS [address] [phone] * (ABNORMAL) HEPATITIS SCREEN ACUTE (08/16/2015 2:50 AM CDT) Hepatitis A Virus Antibody IgM Non-react drew Non-react [facility] Hepatitis B Virus Surface Antigen Non-react drew Non-react [facility] Hepatitis B Core Virus Antibody IgM Non-react drew Non-react [facility] Hepatitis C Antibody Reactive( A) Non-react [facility] Comment: Hepatitis C Antibody screen is consistent with past or current infection with Hepatitis C Virus. Nucleic Acid Test (RENETTA) for Hepatitis C Viral RNA should be performed for initial HCV workup, and for differentiating active/chronic infection from resolved infection. Blood specimen (specimen) BLOOD SPECIMEN / Unknown 08/16/2015 2:50 AM CDT 08/16/2015 3:07 AM CDT Colton Magana MD LAB - CHEMISTRY ORDE RABMARTINEZ [address] [phone] * (ABNORMAL) FERRITIN (08/16/2015 2:50 AM CDT) Ferritin 9,927(H) 13 - 204 ng/mL [facility] Comment:Result obtained by kris ruiz. Blood specimen (specimen) BLOOD SPECIMEN / Unknown 08/16/2015 2:50 AM CDT 08/16/2015 3:07 AM CDT Colton Magana MD LAB - CHEMISTRY RICA RHODES Performing Organization Address [facility] Co de Phone Number [address] [phone] * LIPASE BLOOD (08/16/2015 1:49 AM CDT) Lipase 14 8 - 78 Units/L [facility] Blood specimen (specimen) BLOOD SPECIMEN / Unknown 08/16/2015 1:49 AM CDT 08/16/2015 1:49 AM CDT Colton Magana MD LAB - CHEMISTRY RICA RHODES Performing Organization Address [facility] de Phone Number [address] [phone] * (ABNORMAL) AMYLASE BLOOD (08/16/2015 1:49 AM CDT) Amylase 17(L) 25 - 125 Units/L [facility] Blood specimen (specimen) BLOOD SPECIMEN / Unknown 08/16/2015 1:49 AM CDT 08/16/2015 1:49 AM CDT Colton Magana MD LAB - CHEMISTRY RICA RHODES Performing Organization Address [facility] Co de Phone Number [address] [phone] * TSH (08/16/2015 1:49 AM CDT) TSH 0.576 0.350 - 4.940 uIU/mL [facility] Blood specimen (specimen) BLOOD SPECIMEN / Unknown 08/16/2015 1:49 AM CDT 08/16/2015 1:49 AM CDT Colton Magana MD LAB - CHEMISTRY RICA RHODES Performing Organization Address [facility] Co de Phone Number [address] [phone] * ACETAMINOPHEN LEVEL (08/16/2015 1:49 AM CDT) Acetaminophen 13.0 10.0 - 30.0 mcg/mL [facility] Comment: Disclaimer: ??Administration of N-acetylcysteine (NAC) may interfere with the acetaminophen assay leading to falsely low acetaminophen results. Please be aware of this negative bias when interpreting results. For questions regarding treatment of acetaminophen toxicity and/or interpretation of acetaminophen concentrations in the presence of NAC please consult [facility] at . Blood specimen (specimen) BLOOD SPECIMEN / Unknown 08/16/2015 1:49 AM CDT 08/16/2015 1:49 AM CDT Colton Magana MD LAB - CHEMISTRY ORDE MEAGAN Performing Organization Address [facility] Co de Phone Number [address] [phone] * PTT SLU (08/16/2015 1:30 AM CDT) APTT 33.7 23.0 - 38.4 Seconds [facility] Comment:Suggested therapeuti c range for full dose I.V. heparin therapy for venous thromboembolism is 66.0-91.0 seconds. Blood specimen (specimen) BLOOD SPECIMEN / Unknown 08/16/2015 1:30 AM CDT 08/16/2015 1:52 AM CDT Narrative [facility] - 08/16/2015 2:09 AM CDT Is patient on Heparin, Argatroban or Dabigatran?->N Colton Magana MD LAB - COAGULATION OR DERABLES Performing Organization Address [facility] [place] [address], [facility] [phone] * CULTURE BLOOD (08/16/2015 1:25 AM CDT) Only the most recent of2 resultswithin the time period is included. Culture Blood No Growth at 5 days [facility] Blood specimen (specimen) 08/16/2015 1:25 AM CDT 08/16/2015 1:57 AM CDT Colton Magana MD LAB - MICROBIOLOGY O RDERABLES Performing Organization Address [facility] Co de Phone Number [address] [phone] * OSMOLALITY BLOOD (05/17/2014 12:22 PM CDT) Pathologist [facility] Osmolality 294 270 - 300 mOsm/kg [facility] Blood specimen (specimen) BLOOD SPECIMEN / Unknown 05/17/2014 12:22 PM CDT 05/17/2014 12:28 PM CDT Lev Hummel DO LAB - CHEMISTRY RICA RHODES Performing Organization Address [facility] Co de Phone Number [address] [phone] * TROPONIN I (05/17/2014 12:22 PM CDT) [facility] Troponin I <0.032 <0.032 ng/mL [facility] Blood specimen (specimen) BLOOD SPECIMEN / Unknown 05/17/2014 12:22 PM CDT 05/17/2014 12:28 PM CDT Lev Hummel DO LAB - CHEMISTRY RICA RHODES Performing Organization Address [facility] Co de Phone Number [address] [phone] * (ABNORMAL) CBC W/O DIFFERENTIAL (05/17/2014 12:22 PM CDT) [facility] WBC 10.6(H) 3.5 - 10.5 10? 3 /uL [facility] RBC 4.68 3.90 - 5.00 10? 6 /uL [facility] Hemoglobin 14.8 12.0 - 15.5 g/dL [facility] Hematocrit 42.0 35.0 - 45.0 % [facility] MCV 89.7 81.0 - 97.0 fL [facility] MCH 31.6 28.0 - 34.0 pg [facility] MCHC 35.2 32.0 - 36.0 g/dL [facility] Platelet Count 238 150 - 400 10? 3 /uL [facility] RDW-SD 41.8 36.0 - 50.0 fL [facility] RDW-CV 12.9 11.2 - 14.8 % [facility] MPV 10.1 9.3 - 12.8 fL [facility] nRBC Absolute 0.00 0 10? 3 /uL [facility] nRBC Auto 0.0 0 /100 WBC [facility] Blood specimen (specimen) BLOOD SPECIMEN / Unknown 05/17/2014 12:22 PM CDT 05/17/2014 12:28 PM CDT Lev Hummel DO LAB - HEMATOLOGY ORD ERABLES Performing Organization Address City/State/[facility] Co de Phone Number [address] [phone] * (ABNORMAL) BLOOD GASES ROSY (05/17/2014 12:22 PM CDT) pH Mixed Venous 7.52(H) 7.30 - 7.40 [facility] pCO2 Mixed Venous 31(L) 40 - 46 mmHg [facility] pO2 Mixed Venous 22(L) 35 - 42 mmHg [facility] HCO3 Mixed Venous 24.7 22.0 - 26.0 mmol/L [facility] TCO2 Mixed Venous 25.7 25.0 - 29.0 mmol/L [facility] Base Excess Venous 3.0(H) -2.0 - 2.0 mmol/L [facility] Hemoglobin Mixed Venous 16.0(H) 12.0 - 15.5 g/dL [facility] Oxyhemoglobin Mixed Venous 48.6(L) 66.0 - 77.0 % [facility] Carboxyhemoglobin Venous 2.4 0.0 - 3.0 % [facility] Methemoglobin 1.4 0.0 - 2.0 % [facility] FI O2 Mixed Venous 21.0 % [facility] Blood specimen (specimen) BLOOD SPECIMEN / Unknown 05/17/2014 12:22 PM CDT 05/17/2014 12:28 PM CDT Narrative [facility] - 05/17/2014 12:39 PM CDT [id number] Lev Hummel DO LAB - BLOOD GASES OR DERABLES Performing Organization Address City/[facility]/ZIP Co de Phone Number [address] [phone] * (ABNORMAL) CK + CKMB PANEL (05/17/2014 12:22 PM CDT) CK Total 204(H) 30 - 200 Units/L [facility] CK-MB 5.5 0.0 - 6.6 ng/mL [facility] Blood specimen (specimen) BLOOD SPECIMEN / Unknown 05/17/2014 12:22 PM CDT 05/17/2014 12:28 PM CDT Lev Hummel DO LAB - CHEMISTRY ORDE MEAGAN Performing Organization Address [facility] Co de Phone Number [address] [phone] * (ABNORMAL) SALICYLATE LEVEL BLOOD (05/17/2014 12:22 PM CDT) Salicylate <5(L) 15 - 30 mg/dL [facility] Blood specimen (specimen) BLOOD SPECIMEN / Unknown 05/17/2014 12:22 PM CDT 05/17/2014 12:28 PM CDT Lev Hummel DO LAB - CHEMISTRY RICA RHODES Performing Organization Address [facility]/ZIP Co de Phone Number [address] [phone] Care Teams Aerologist Relationship Specialty Start Date End Date Marlon Anderson MD [address] [facility] [place] [address] PCP - General Internal Medicine 04/18/21
--- OUTSIDE RECORDS SUMMARY | 2024-12-20 18:48 | XMS_ITS | Data Portability ---
Author Organization [facility] Address [address] [place] [address] Care Team Providers Care University Administrator Name Role Phone PORSCHE BROOKS Primary Care Provider JOANNA Rinaldi Sport Intern Assessment No assessment recorded. Plan of Treatment Reminders Order Date Submit Date Provider Last Modified By Organization Details Last Modified Time Details Appointments None recorde d. Lab SARS CoV 2 RNA (COVID- 19), QL, claims adjustor-PCR , respira tory specime n - Preop pt with chronic disease . [facility]. 2019 020 [email or web address] [facility] (Lab), [address], [place], [address], 0 17:27:49 urinaly sis, dipstic k 2021 022 [email or web address] In-Office Order, Internal Use Only DO Not Attach Compendium DO Not Attach Compendium, Do Not Delete/merge, [id number] 2 10:23:29 bacteri al vaginos is + vaginit is panel, vaginal 2021 022 [email or web address] [facility] (Lab), [address], [place], [address], 2 11:46:56 HIV (1+2) Ab screen, serum 2021 022 [email or web address] [facility] (Lab), [address], [place], [address], 2 10:26:03 RPR (rapid plasma reagin) , serum 2021 FIDEL [facility] (Lab), [address] [place], [address], 2 07:10:55 HBsAg (hepati tis B surface Ag), serum 2021 [facility] (Lab), [address] [place], [address], 2 10:26:03 hsv (1+2) igm Ab, quant, serum, reflex titer 2021 022 [facility] (Lab), [address] [place], [address], 2 10:26:03 hepatit is C virus Ab, serum 2021 022 [facility] (Lab), [address] [place], [address], 2 10:26:03 Referral None recorde d. Procedures None recorde d. Surgeries None recorde d. Imaging MAMMO, screeni ng, bilater al [email or web address] [address] [place], [address], 2 12:45:42 Medication Orders None recorde d. Patient TargetsNo targets recorded. Patient Instructions Encounter Date Encounter Id Patient Instructions Last Modified By Organization Details Last Modified Time 04/09/2020 [id number] Reviewed the following recommendations: -Stay home and separate from others as much as possible. -Monitor your symptoms and seek medical attention for trouble breathing, persistent chest pain, confusion, or bluish lips or face. -Wear a mask if you must be around other people. -Wash your hands often for 20 seconds with soap and water and clean high-touch surfaces daily -You may discontinue home isolation if your symptoms are improving and it has been 10 days since symptoms started. [email or web address] Not available 04/09/2020 15:10:26 08/16/2022 [id number] mammogram: about this test [email or web address] Not available 08/16/2022 10:23:29 Reason for Referral None Reported. Results Created Date Observation Date Name Description Value Unit Range Abnormal Flag Note LastModifiedBy Organization Detail LastModifiedTime 08/16/20 22 08/17/2022 HCV ANTIB EMELINA hep C virus Ab 1.5 s/co_ ratio 0.0-0. 9 above high normal Negat drew: < 0.8 Indet ermin ate: 0.8 - 0.9 Posit drew: > 0.9 HCV antib emelina alone does not diffe renti ate betwe en previ ous resol manuel infec tion and activ e infec tion. The [facility] and [facility] kenneth guide lines recom mend that a posit drew HCV antib emelina resul t be follo wed up with an HCV RNA test to suppo rt the diagn osis of acute HCV infec tion. [facility] offer s Hepat itis C Virus (HCV) RNA, Diagn osis, FARHANA ([id number] [id number]) and Hepat itis C Virus (HCV) Antib emelina with refle x to Quant itati ve Real- time PCR (8590 [id number]). Not Available [facility] ([facility]) [address] [facility] [address], [place], [address], 08/17/2022 07:10:54 08/16/20 22 08/17/2022 HSV 1 AND 2-SPE C AB, IGG W/RFX hsv 1 IgG, type spec 7.28 index 0.00-0 .90 above high normal Negat drew <0.91 Equiv ocal 0.91 - 1.09 Posit drew >1.09 Note: Negat drew indic ates no antib odies detec [place] to HSV-1 . Equiv ocal may sugge st early infec tion. If clini toña appro priat e, retes t at later date. Posit drew indic ates antib odies detec [place] to HSV-1 . Not Available [facility] ([facility]) [address], [place], [address], 08/17/2022 07:10:55 08/16/2008/17/2022 HSV 1 AND 2-SPE C AB, IGG W/RFX hsv 2 IgG, type spec <0.91 index 0.00-0 .90 Negat drew <0.91 Equiv ocal 0.91 - 1.09 Posit drew >1.09 Note: Negat drew indic ates no HSV-2 antib odies detec [place]. Posit drew indic ates HSV-2 antib odies detec [place]. Equiv ocal and low posit drew HSV-2 scree ns (Inde x 0.91- 5.00) may be false posit drew and are refle xed to suppl guido foster in accor dance with [facility] guide lines . Not Available [facility] ([facility]) [address], [place], [address], 08/17/2022 07:10:55 08/16/2008/17/2022 RPR RPR Non Reacti ve nonrea ctive Not Available [facility] ([facility]) [address] [place], [address], 08/17/2022 07:10:55 08/16/2008/17/2022 HEPAT ITIS B SURF AB QUANT hepatitis B surf Ab quant <3.1 below low normal Statu s of Immun ity Anti- HBs Level ----- ----- ----- --- ----- ----- ---- Incon siste nt with Immun ity 0.0 - 9.9 Consi stent with Immun ity >9.9 Not Available [facility] ([facility]) [address] [place], [address], 08/17/2022 07:10:56 08/16/2008/17/2022 HIV AB/P2 4 AG WITH REFLE X HIV Ab/P24 Ag screen Non Reacti ve nonrea ctive HIV Negat drew HIV-1 /HIV- 2 antib odies and HIV-1 p24 antig en were NOT detec [place]. There is no labor atory evide nce of HIV infec tion. Not Available [facility] ([facility]) [address], [place], [address], 08/17/2022 07:10:57 08/16/20 22 08/16/2022 urina lysis , dipst ick Leukocytes Negati ve Not Available In-Office Order Internal Use Only DO Not Attach Compendium DO Not Attach Compendium, Do Not Delete/merge, 08/16/2022 10:12:58 08/16/20 22 08/16/2022 urina lysis , dipst ick Nitrite negati ve Not Available In-Office Order Internal Use Only DO Not Attach Compendium DO Not Attach Compendium, Do Not Delete/merge, 08/16/2022 10:12:58 08/16/20 22 08/16/2022 urina lysis , dipst ick Urobilinogen .2 Not Available In-Of fice Order Internal Use Only DO Not Attach Compendium DO Not Attach Compendium, Do Not Delete/merge, 08/16/2022 10:12:58 08/16/20 22 08/16/2022 urina lysis , dipst ick Protein Negati ve Not Available In-Office Order Internal Use Only DO Not Attach Compendium DO Not Attach Compendium, Do Not Delete/merge, 08/16/2022 10:12:58 08/16/20 22 08/16/2022 urina lysis , dipst ick pH 7.0 Not Available In-Office Order Internal Use Only DO Not Attach Compendium DO Not Attach Compendium, Do Not Delete/merge, 08/16/2022 10:12:58 08/16/20 22 08/16/2022 urina lysis , dipst ick Blood Negati ve Not Available In-Office Order Internal Use Only DO Not Attach Compendium DO Not Attach Compendium, Do Not Delete/merge, 08/16/2022 10:12:58 08/16/20 22 08/16/2022 urina lysis , dipst ick Specific Ashley 1.015 Not Available In-Off ice Order Internal Use Only DO Not Attach Compendium DO Not Attach Compendium, Do Not Delete/merge, [id number] 08/16/2022 10:12:58 08/16/20 22 08/16/2022 urina lysis , dipst ick Ketone Negati ve Not Available In-Office Order Internal Use Only DO Not Attach Compendium DO Not Attach Compendium, Do Not Delete/merge, [id number] 08/16/2022 10:12:58 08/16/20 22 08/16/2022 urina lysis , dipst ick Bilirubin Negati ve Not Available In-Office Order Internal Use Only DO Not Attach Compendium DO Not Attach Compendium, Do Not Delete/merge, [id number] 08/16/2022 10:12:58 08/16/20 22 08/16/2022 urina lysis , dipst ick Glucose Negati ve Not Available In-Office Order Internal Use Only DO Not Attach Compendium DO Not Attach Compendium, Do Not Delete/merge, 08/16/2022 10:12:58 Result Notes None recorded. Problems Name Problem SNOMED Code Status Onset Date Resolution Date Notes Provider Name and Address Organization Details Recorded Time Chronic obstructi ve pulmonary disease 68898457 Active 2018 Dewey Goetz MA [facility], [place] - [place] 9 16:41:23 Pancreati tis 18267388 Active 2012 Kamilla Lowe MICHAEL Attn: Accounting ,[address] [place], [address] , [facility] - [place] 9 11:35:45 Essential hypertens ion 68066217 Active 2018 placed on meds per ER visit that day doing much better blood begining to regulate discused sodium intake to de crease. Kamilla Lowe ANGELICA Attn: Accounting ,[address] [place], [address] , [facility] - [place] 9 11:37:34 Restless legs 77844197 Active 2018 Porsche Brooks PA-C Attn: Accounting ,[address] [place], [address] , [facility] - [place] 9 11:06:57 Bipolar disorder 88259468 Active 2018 Porsche Brooks PA-C Attn: Accounting ,[address] [place], [address] , [facility] - [place] 9 11:07:59 Insomnia 517310655 Active 2018 Porsche Brooks PA-C Attn: Accounting ,[address] [facility], [place], [address] , [facility] 9 11:08:07 Genital herpes simplex 88846995 Active 2018 Porsche Brooks PA-C Attn: Accounting ,[address] [place], [address] , [facility] - [facility] 9 11:11:48 Hepatitis C carrier 132831170 Active 2017 Per [facility] in [place] Kamilla Lowe [facility] Attn: Accounting ,[address] [place], [address] , [facility] - [place] 9 11:54:13 Problem Notes None recorded. Procedures Surgical History Date Name Laterality Status Provider Name and Address Organization Details Recorded Time 05/07/20 19 Date of Last Mammogram completed Diane Altamirano [facility] 07/05/2022 11:42:21 11/21/19 13 thyroidectomy completed Dewey Goetz MA [facility] 01/10/2019 16:46:36 11/21/19 00 Biopsy of breast open completed Dewey Goetz MA [facility] 01/10/2019 16:47:35 11/21/18 95 Total Abdominal Hysterectomy completed Dewey Goetz MA [facility] 01/10/2019 16:46:10 Imaging Results None recorded. Procedure Notes None recorded. Medical Equipment None Reported. Allergies No known drug allergies Medications Name Sig Start Date Stop Date Status Note LastModified by Organization Details LastModified Time Prescriptio n - Prior Authorizati on Request 03/19 completed Not Available Not Available Not Available quetiapine 25 mg tablet active Not Available Not Available Not Available celecoxib 200 mg capsule active Not Available Not Available Not Available cyclobenzap rine 10 mg tablet active Not Available Not Available Not Available furosemide 40 mg tablet active Not Available Not Available Not Available fluconazole 100 mg tablet active Not Available Not Available Not Available atorvastati n 40 mg tablet active Not Available Not Available Not Available lamotrigine 150 mg tablet active Not Available Not Available Not Available silver sulfadiazin e 1 % topical cream active Not Available Not Available Not Available nystatin 100,000 unit/mL oral suspension active Not Available Not Available N ot Available venlafaxine ER 37.5 mg capsule,ext ended release 24 hr 03/19 completed Not Available Not Available Not Available clonidine HCl 0.1 mg tablet 03/19 completed Not Available Not Available Not Available prednisone 10 mg tablet active Not Available Not Available Not Available venlafaxine ER 75 mg capsule,ext ended release 24 hr 03/19 completed Not Available Not Available Not Available gabapentin 600 mg tablet active Not Available Not Available Not Available doxycycline hyclate 100 mg capsule active Not Available Not Available N ot Available miconazole nitrate 100 mg vaginal suppository active Not Available Not Available Not Available lamotrigine 200 mg tablet active Not Available Not Available Not Available ropinirole 1 mg tablet 03/19 completed Not Available Not Available Not Available venlafaxine 75 mg tablet 03/19 completed Not Available Not Available Not Available nicotine 14 mg/24 hr daily transdermal patch active Not Available Not Available Not Available ipratropium 0.5 mg-albutero l 3 mg (2.5 mg base)/3 mL nebulizatio n soln 03/19 completed Not Available Not Available Not Available quetiapine 300 mg tablet Take 1 tablet every day by oral route. active Not Available Not Available No t Available albuterol sulfate 2.5 mg/3 mL (0.083 %) solution for nebulizatio n Inhale 3 mL twice a day by inhalatio n route as needed. active Not Available Not Available No t Available cetirizine 10 mg tablet active Not Available Not Available Not Available azithromyci n 250 mg tablet 07/05 completed Not Available Not Available Not Available ibuprofen 800 mg tablet Take 1 tablet 3 times a day by oral route as needed. active Not Available Not Available No t Available Lidocaine Viscous 2 % mucosal solution active Not Available Not Available Not Available tizanidine 4 mg tablet active Not Available Not Available Not Available fluconazole 150 mg tablet active Not Available Not Available Not Available valacyclovi r 1 gram tablet TAKE 1 TABLET BY MOUTH DAILY active Not Available Not Available No t Available hydrocodone 5 mg-acetamin ophen 325 mg tablet TAKE 1 TABLET BY MOUTH EVERY 8 HOURS NEEDED FOR PAIN active Not Available Not Available No t Available prazosin 1 mg capsule 03/19 completed Not Available Not Available Not Available senna 8.6 mg tablet active Not Available Not Available No t Available ondansetron HCl 8 mg tablet active Not Available Not Available Not Available meloxicam 15 mg tablet active Not Available Not Available Not Available sucralfate 1 gram tablet active Not Available Not Available Not Available ondansetron HCl 4 mg tablet 03/19 completed Not Available Not Available Not Available famotidine 40 mg tablet active Not Available Not Available Not Available prednisone 20 mg tablet active Not Available Not Available Not Available quetiapine 200 mg tablet active Not Available Not Available Not Available sumatriptan 50 mg tablet active Not Available Not Available Not Available hydroxyzine pamoate 50 mg capsule active Not Available Not Available N ot Available penicillin V potassium 500 mg tablet active Not Available Not Available Not Available lithium carbonate ER 300 mg tablet,exte nded release Take 1 tablet twice a day by oral route. active Not Available Not Available No t Available topiramate 25 mg tablet active Not Available Not Available Not Available potassium chloride ER 10 mEq tablet,exte nded release active Not Available Not Available Not Available metronidazo le 500 mg tablet active Not Available Not Available Not Available acetaminoph en 300 mg-codeine 30 mg tablet 07/05 completed Not Available Not Available Not Available prochlorper azine maleate 10 mg tablet active Not Available Not Available No t Available acyclovir 400 mg tablet 03/19 completed Not Available Not Available Not Available allopurinol 100 mg tablet 03/19 completed Not Available Not Available Not Available valacyclovi r 500 mg tablet active Not Available Not Available Not Available sulfamethox azole 800 mg-trimetho prim 160 mg tablet active Not Available Not Available Not Available peg-electro lyte solution 420 gram oral solution active Not Available Not Available Not Available omeprazole 40 mg capsule,del ayed release Take 1 capsule every day by oral route. active Not Available Not Available No t Available aspirin 81 mg tablet,erik yed release active Not Available Not Available Not Available quetiapine 100 mg tablet active Not Available Not Available Not Available acetaminoph en 500 mg tablet active Not Available Not Available Not Available triamterene 37.5 mg-hydrochl orothiazide 25 mg capsule TAKE 1 CAPSULE BY MOUTH TWICE A DAY active Not Available Not Available No t Available triamcinolo ne acetonide 0.1 % topical cream active Not Available Not Available Not Available spironolact one 25 mg tablet active Not Available Not Available Not Available lithium carbonate ER 450 mg tablet,exte nded release active Not Available Not Available Not Available meloxicam 7.5 mg tablet 04/05 completed Not Available Not Available Not Available prazosin 5 mg capsule 03/19 completed Not Available Not Available Not Available clonidine HCl 0.2 mg tablet 03/19 completed Not Available Not Available Not Available potassium chloride ER 20 mEq tablet,exte nded release(par t/cryst) active Not Available Not Available Not Available magnesium oxide 400 mg (241.3 mg magnesium) tablet active Not Available Not Available Not Available DOK 100 mg capsule Take 1 capsule every day by oral route with meals for 7 days. 03/19 completed Not Available Not Available Not Available gabapentin 800 mg tablet active Not Available Not Available Not Available imiquimod 5 % topical cream packet APPLY TO THE AFFECTED AREA(S) BY TOPICAL ROUTE 5 TIMES PER WEEK active Not Available Not Available No t Available amitriptyli ne 10 mg tablet 03/19 completed Not Available Not Available Not Available phenazopyri dine 100 mg tablet active Not Available Not Available Not Available benzonatate 100 mg capsule 03/19 completed Not Available Not Available Not Available ropinirole 2 mg tablet Take 1 tablet every day by oral route at bedtime. 03/19 completed Not Available Not Available Not Available cephalexin 500 mg capsule active Not Available Not Available Not Available oseltamivir 75 mg capsule active Not Available Not Available Not Available promethazin e 25 mg tablet active Not Available Not Available Not Available nicotine 21 mg/24 hr daily transdermal patch active Not Available Not Available Not Available fluoxetine 10 mg capsule Take 1 capsule every day by oral route. active Not Available Not Available No t Available gabapentin 300 mg capsule active Not Available Not Available Not Available omeprazole 20 mg capsule,del ayed release 03/19 completed Not Available Not Available Not Available Banophen 25 mg capsule active Not Available Not Available N ot Available montelukast 10 mg tablet active Not Available Not Available Not Available gabapentin 100 mg capsule active Not Available Not Available Not Available clobetasol 0.05 % topical ointment active Not Available Not Available Not Available ibuprofen 600 mg tablet 04/05 completed Not Available Not Available Not Available polyethylen e glycol 3350 17 gram/dose oral powder active Not Available Not Available Not Available levofloxaci n 500 mg tablet active Not Available Not Available Not Available estradiol 0.01% (0.1 mg/gram) vaginal cream active Not Available Not Available Not Available methylpredn isolone 4 mg tablets in a dose pack active Not Available Not Available Not Available albuterol sulfate HFA 90 mcg/actuati on aerosol inhaler Inhale 2 puffs every 4 hours by inhalatio n route as needed. active Not Available Not Available No t Available propranolol 20 mg tablet 03/19 completed Not Available Not Available Not Available ondansetron 4 mg disintegrat ing tablet Take 1 tablet by oral route as needed. active Not Available Not Available No t Available topiramate 100 mg tablet active Not Available Not Available Not Available fluoxetine 20 mg capsule active Not Available Not Available Not Available fluticasone propionate 50 mcg/actuati on nasal spray,suspe nsion SHAKE LIQUID AND USE 1 SPRAY IN EACH NOSTRIL DAILY active Not Available Not Available No t Available risperidone 1 mg tablet active Not Available Not Available Not Available dicyclomine 10 mg capsule 03/19 completed Not Available Not Available Not Available lamotrigine 100 mg tablet Take 1 tablet every day by oral route. active Not Available Not Available No t Available prazosin 2 mg capsule 03/19 completed Not Available Not Available Not Available naproxen 500 mg tablet TAKE 1 TABLET BY MOUTH TWICE A DAY 2018 active Not Available Not Available Not Avai lable amoxicillin 875 mg-potassiu m clavulanate 125 mg tablet active Not Available Not Available Not Available nicotine 7 mg/24 hr daily transdermal patch active Not Available Not Available Not Available ropinirole 4 mg tablet Take 1 tablet every day by oral route at bedtime. active Not Available Not Available No t Available hydroxyzine pamoate 25 mg capsule active Not Available Not Available N ot Available nitrofurant oin monohydrate /macrocryst als 100 mg capsule active Not Available Not Available Not Available duloxetine 60 mg capsule,del ayed release active Not Available Not Available Not Available lactulose 10 gram/15 mL oral solution active Not Available Not Available Not Available Nyamyc 100,000 unit/gram topical powder active Not Available Not Available Not Available Vandazole 0.75 % (37.5 mg/5 gram) vaginal gel active Not Available Not Available Not Available quetiapine 50 mg tablet Take 1 tablet twice a day by oral route. active Not Available Not Available No t Available Symbicort 160 mcg-4.5 mcg/actuati on HFA aerosol inhaler active Not Available Not Available Not Available Invega Sustenna 156 mg/mL intramuscul ar syringe active Not Available Not Available N ot Available Invega Sustenna 117 mg/0.75 mL intramuscul ar syringe active Not Available Not Available N ot Available Invega Sustenna 234 mg/1.5 mL intramuscul ar syringe active Not Available Not Available N ot Available paliperidon e ER 1.5 mg tablet,exte nded release 24 hr active Not Available Not Available Not Available Dulera 100 mcg-5 mcg/actuati on HFA aerosol inhaler active Not Available Not Available Not Available Linzess 145 mcg capsule active Not Available Not Available Not Available Linzess 290 mcg capsule Take 1 capsule every day by oral route. active Not Available Not Available No t Available Incruse Ellipta 62.5 mcg/actuati on powder for inhalation Inhale 1 puff every day by inhalatio n route. active Not Available Not Available No t Available Narcan 4 mg/actuatio n nasal spray active Not Available Not Available Not Available Nicorette 2 mg buccal mini lozenge active Not Available Not Available Not Available Daily-Rajendra (with folic acid) 400 mcg tablet active Not Available Not Available N ot Available Vitals Date Recorded Body height Provider Name an d Address Organization Details Last Updated DateTime 07/05/2022 170.18 cm Diane Altamirano MA [facility] 2021 11:39:19 Date Recorded Body mass index (BMI) Body weight Provider Name and Address Organization Details Last Updated DateTime 07/05/2022 32.7 kg/m2 30994.81 g Diane Altamirano MA [facility] 07/05/2022 11:39:25 Date Recorded Body weight Provider Name an d Address Organization Details Last Updated DateTime 08/16/2022 67430.17 g Rebecca peterson MA [facility] 08/16/2022 10:05:00 Date Recorded Body height Provider Name an d Address Organization Details Last Updated DateTime 09/20/2022 170.18 cm Terrimarbobo Baltazar MA [facility] 2021 10:43:10 Date Recorded Heart rate Provider Name an d Address Organization Details Last Updated DateTime 09/20/2022 73 /min Terrimarbobo Baltazar MA [facility] 2021 10:43:20 Date Recorded Body temperature Provider Name a nd Address Organization Details Last Updated DateTime 09/20/2022 98.6 [degF] Terrimarbobo Baltazar MA [facility] 09/20/2022 10:43:52 Date Recorded Body mass index (BMI) Provider Name and Address Organization Details Last Updated DateTime 09/20/2022 34.2 kg/m2 Terrimarbobo Baltazar GUERLINE [facility] 2021 10:43:58 Date Recorded Body weight Provider Name an d Address Organization Details Last Updated DateTime 09/20/2022 83280.57 g Terrimarbobo Baltazar GUER[place] [facility] 2021 10:43:59 Date Recorded Body height Provider Name an d Address Organization Details Last Updated DateTime 11/29/2022 170.18 cm Windy GUERLINE Powell [facility] 11/29/19 10:58:37 Date Recorded Body mass index (BMI) Body weight Provider Name and Address Organization Details Last Updated DateTime 11/29/2022 31.3 kg/m2 44054.47 g Windy Powell MA [facility] 11/29/2022 10:58:44 Date Recorded Body temperature Provider Name a nd Address Organization Details Last Updated DateTime 11/29/2022 96.9 [degF] Windy Powell [place] - [facility] 023 10:58:51 Date Recorded Pain severity - 0-10 verbal numeric rating [Score] - Reported Provider Name and Address Organization Details Last Updated DateTime 11/29/2022 4 Windy Powell [place] 11/29/19 10:59:09 Date Recorded Heart rate Provider Name an d Address Organization Details Last Updated DateTime 11/29/2022 85 /min Windy Powell MA [facility] 11/29/19 11:01:39 Date Recorded Body height Provider Name an d Address Organization Details Last Updated DateTime 01/31/2023 170.18 cm Windy GUERLINE Powell [facility] 02/01/20 15:46:52 Date Recorded Body mass index (BMI) Body weight Provider Name and Address Organization Details Last Updated DateTime 01/31/2023 31 kg/m2 38473.29 g Windy Andre GUERLINE [facility] 01/31/2023 15:46:58 Date Recorded Body temperature Provider Name a nd Address Organization Details Last Updated DateTime 01/31/2023 98.1 [degF] Windy Powell MA [facility] 023 15:47:05 Date Recorded Pain severity -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 recently have been starting to give them pain. States they would like to have the callus lesions trimmed down as they are unable to care for them on their own. Denies any other pedal complaints at this time. CASSANDRA MAGAÑA DPM [address] [place], [address], [facility] 09/21/2022 14:23:18 11/29/2022 text/html Patient presents to clinic with chief complaint of painful elongated thickened toenails as well painful calluses. Patient denies any constitutional symptoms at this time. Denies any recent trauma to the foot or ankle. Patient states their toenails have been especially painful in certain shoe gear and they would like to have them trimmed down as they are unable to care for them on their own. Patient states they also have noticed calluses building up on the bottom of their feet that recently have been starting to give them pain. States they would like to have the callus lesions trimmed down as they are unable to care for them on their own. Denies any other pedal complaints at this time. CASSANDRA MAGAÑA DPM [address] [place], [address], [facility] 11/29/2022 14:19:24 01/31/2023 text/html Patient presents to clinic with chief complaint of painful elongated thickened toenails as well painful calluses. Patient denies any constitutional symptoms at this time. Denies any recent trauma to the foot or ankle. Patient states their toenails have been especially painful in certain shoe gear and they would like to have them trimmed down as they are unable to care for them on their own. Patient states they also have noticed calluses building up on the bottom of their feet that recently have been starting to give them pain. States they would like to have the callus lesions trimmed down as they are unable to care for them on their own. Denies any other pedal complaints at this time. CASSANDRA MAGAÑA DPM [address] [place], [address], [facility] 02/01/2023 12:08:00 OBGyn Episode No OBEpisode recorded.
--- OUTSIDE RECORDS SUMMARY | 2024-12-20 18:48 | XMS_ITS | Referral Summary ---
Author Organization [facility] Address [address] [place] [address] Care Team Providers Care Utility Systems Repairer Operator Name Role Phone Marlon Anderson MD Primary Care Provider Allergies Active Allergy Reactions Criticality Noted Date [...] pain 50 tablet 06/03/2022 Active azithromycin (Zithromax Z-Joes) 250 mg tablet Take 1 tablet (250 [...] (05/20/2022): Added automatically from request for surgery [id number] Cellulitis of right upper extremity 12/18/2021 Bipolar [...] (05/13/2021): Added automatically from request for surgery [id number] Closed displaced fracture of middle third of scaphoid of right wrist with routine healing 05/13/2021 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 01/12/2021 Acute [...] on file Legal Sex Female 12:57 PM SUPPORT SERVICES COORDINATOR Gender Identity Not on file Sexual Orientation [...] on file Medical Devices Explanted Type Area Distributed Energy Systems Consultant Device Identifier Shelf Expiration Date Model / Serial / Lot Screw Bone 3mm 4.3mm 22mm Mini Implanted:Qty: 1 on 05/26/2021 by Corky Camilo MD at [facility] Explanted:Qty: 1 on 06/03/2022 by Corky Camilo MD at [facility] Right: Wrist [employer] [id number] / / Procedures Procedure Name Priority Date/Time Associated Diagnosis Comments HEPATITIS C ANTIBODY Routine 12/25/2021 3:26 PM SUPPORT SERVICES COORDINATOR from Last 3 Months or Most Recently Relevant to Health Maintenance Results * (ABNORMAL) Hepatitis C antibody (12/25/2021 3:26 PM SUPPORT SERVICES COORDINATOR) Hep C Ab Reactive( A) Nonreactive [facility]LEY MSITH Comment: Interpretive Data Nonreactive: Antibodies to HCV [...] revised on 2020. Blood 12/25/2021 3:26 PM SUPPORT SERVICES COORDINATOR 12/25/2021 3:31 PM SUPPORT SERVICES COORDINATOR us Price Ireland MD LAB MICROBIOLOGY - GENERAL O RDERABLES Final Result [facility] [address] [facility] Department [place] [address] from Last 3 Months or Most Recently Relevant to Health Maintenance Insurance [facility] Advance Directives For more information, please contact: [phone] * Full Code (Latest Code Status on File) Date Activated Date Inactivated Comments 12/18/2021 10:59 PM 12/26/2021 9:28 PM Care Teams Utility Systems Repairer Operator Relationship Specialty Start Date End Date Marlon Anderson MD [address] [place] [address] PCP - General Internal Medicine 11/24/22
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
--- OUTSIDE RECORDS SUMMARY | 2024-12-20 18:48 | XMS_ITS | Referral Summary ---
Author Organization [facility] Address [address] [place] [address] Care Team Providers Care Distributor Of Directories Name Role Phone Marlon Anderson MD Primary Care Provider Source Comments [facility],non-owned Affiliates and Associated Physician Practices is amultiple site organization consisting of ambulatory clinics and hospital sitesin [place], [place] and [place]. This disclosure is being madepursuant to the Care Everywhere program and may not contain all informatio navailable regarding this patient. Last updated 18.[facility] Encounters Date Type Department Care Team Description 11/16/2024 4:14 AM [facility] - 11/16/2024 7:02 AM [facility] Emergency [facility] EMERGENCY DEPARTMENT [address] [place] [address] Devon Adan MD Chest pain, unspecified type (Primary Dx) Discharge Disposition: Home or Self Care 11/15/2024 Travel from Last 3 Months Allergies Active Allergy Reactions Criticality Noted Date [...] mouth once daily 09/04/2020 Active nystatin (MYCOSTATIN) 231921 UNIT/ML suspension Swish and spit 10 mL [...] fluticasone propionate (FLONASE) 50 MCG/ACT nasal spray Altair 2 sprays into each nostril once daily [...] (05/26/2022): Added automatically from request for surgery [id number] Bipolar 1 disorder 12/18/2021 Cellulitis of right [...] Comments Blood Pressure 158/98 11/16/2024 7:00 AM CAREER DEVELOPMENT MANAGER Pulse 78 11/16/2024 7:00 AM CAREER DEVELOPMENT MANAGER Temperature 36.3 ??C (97.3 ??F) 11/16/2024 2:00 AM CS T Respiratory Rate 16 11/16/2024 7:00 AM CAREER DEVELOPMENT MANAGER Oxygen Saturation 99% 11/16/2024 7:00 AM CAREER DEVELOPMENT MANAGER Inhaled Oxygen Concentration - - Weight 72.6 kg (160 lb) 11/15/2024 9:46 PM CAREER DEVELOPMENT MANAGER Height 170.2 cm (5' 7 ) 11/15/2024 9:46 PM CAREER DEVELOPMENT MANAGER Body Mass Index 25.06 11/15/2024 9:46 PM CAREER DEVELOPMENT MANAGER Plan of Treatment Not on file Procedures Procedure Name Priority Date/Time Associated Diagnosis Comments CARDIAC EKG ORDER 11/19/2024 10: 58 AM CAREER DEVELOPMENT MANAGER TROPONIN-I HIGH SENSITIVE REFLEX 1HOUR Timed 11/16/2024 12:41 AM CAREER DEVELOPMENT MANAGER TROPONIN-I HIGH SENSITIVE BASELINE + 1HR STAT 11/15/2024 11:41 PM CAREER DEVELOPMENT MANAGER HCG BETA BLOOD QUANTITATIVE STAT 11/15/2024 11:41 PM CAREER DEVELOPMENT MANAGER COMPREHENSIVE METABOLIC PANEL STAT 11/15/2024 11:41 PM CAREER DEVELOPMENT MANAGER CBC W AUTO DIFFERENTIAL STAT 11/15/2024 11:41 PM CAREER DEVELOPMENT MANAGER XR CHEST 2VW STAT 11/15/2024 11:05 PM CAREER DEVELOPMENT MANAGER Chest pain, unspecified type EKG 12-LEAD STAT 11/15/2024 10:29 PM CAREER DEVELOPMENT MANAGER Chest pain, unspecified type HIV-1 HIV-2 ANTIGEN/ANTIBODY Routine 08/16/2015 12:58 PM CDT HEPATITIS SCREEN ACUTE Routine 5 2:50 AM CDT from Last 3 Months or Most Recently Relevant to Health Maintenance Results * CARDIAC EKG ORDER (11/19/2024 10:58 AM CAREER DEVELOPMENT MANAGER) Narrative 11/19/2024 10:58 AM CAREER DEVELOPMENT MANAGER Ordered by an unspecified provider. Scanned Document CARDIAC SERVICES ORD ERABLES * TROPONIN-I HIGH SENSITIVE REFLEX 1HOUR (11/16/2024 12:41 AM CAREER DEVELOPMENT MANAGER) Troponin I High Sensitive 4 <=14 ng/L 11/16/2024 1:22 AM CAREER DEVELOPMENT MANAGER [facility] Delta Troponin I HS <0 <6 ng/L 11/16/2024 1:22 AM CAREER DEVELOPMENT MANAGER [facility] Blood BLOOD SPECIMEN / Unknown Venipuncture / Unknown 11/16/2024 12:41 AM CAREER DEVELOPMENT MANAGER 11/16/2024 12:49 AM CAREER DEVELOPMENT MANAGER Trav Stanley MD LAB - CHEMISTRY RICA RHODES Performing Organization Address [place]/[facility]/ZIP Co de Phone Number [facility] [address] [place] [phone], [facility] [phone] * TROPONIN-I HIGH SENSITIVE BASELINE + 1HR (11/15/2024 11:41 PM CAREER DEVELOPMENT MANAGER) Troponin I High Sensitive 6 <=14 ng/L 11/16/2024 12:26 AM CAREER DEVELOPMENT MANAGER [facility] Blood BLOOD SPECIMEN / Unknown Venipuncture / Unknown 11/15/2024 11:41 PM CAREER DEVELOPMENT MANAGER 11/15/2024 11:53 PM CAREER DEVELOPMENT MANAGER Trav Stanley MD LAB - CHEMISTRY RICA RHODES [facility] [address] [place] [address], [facility] [phone] * (ABNORMAL) CBC W AUTO DIFFERENTIAL (11/15/2024 11:41 PM CAREER DEVELOPMENT MANAGER) WBC 11.3(H) 4.0 - 10.7 x10E9/L 11/15/2024 11:57 PM [facility] RBC Count 4.64 3.90 - 5.20 x10E12/L 11/15/2024 11:57 PM [facility] Hemoglobin 14.4 11.9 - 15.8 g/dL 11/15/2024 11:57 PM [facility] Hematocrit 41.1 34.8 - 46.1 % 11/15/2024 11:57 PM [facility] MCV 88.6 80.0 - 98.0 fL 11/15/2024 11:57 PM [facility] MCH 31.0 26.7 - 33.6 pg 11/15/2024 11:57 PM [facility] MCHC 35.0 31.7 - 36.3 g/dL 11/15/2024 11:57 PM [facility] RDW-CV 12.4 11.3 - 14.8 % 11/15/2024 11:57 PM [facility] Platelet Count 315 150 - 420 x10E9/L 11/15/2024 11:57 PM [facility] MPV 9.0 7.8 - 11.4 fL 11/15/2024 11:57 PM [facility] Neutrophil % 66.6 41.0 - 74.0 % 11/15/2024 11:57 PM [facility] Lymphocyte % 24.4 17.0 - 47.0 % 11/15/2024 11:57 PM [facility] Monocyte % 7.2 3.0 - 11.0 % 11/15/2024 11:57 PM [facility] Eosinophil % 1.0 0.0 - 7.0 % 11/15/2024 11:57 PM [facility] Basophil % 0.4 0.0 - 1.6 % 11/15/2024 11:57 PM [facility] Immature Granulocytes % 0.4 0.0 - 1.0 % 11/15/2024 11:57 PM [facility] Neutrophil Absolute 7.53(H) 1.60 - 7.50 x10E9/L 11/15/2024 11:57 PM [facility] Lymphocyte Absolute 2.75 1.00 - 4.40 x10E9/L 11/15/2024 11:57 PM [facility] Monocyte Absolute 0.81 0.15 - 1.00 x10E9/L 11/15/2024 11:57 PM [facility] Eosinophil Absolute 0.11 0.00 - 0.60 x10E9/L 11/15/2024 11:57 PM [facility] Basophil Absolute 0.05 0.00 - 0.13 x10E9/L 11/15/2024 11:57 PM [facility] Blood BLOOD SPECIMEN / Unknown Venipuncture / Unknown 11/15/2024 11:41 PM CAREER DEVELOPMENT MANAGER 11/15/2024 11:53 PM [facility] Trav Stanley MD LAB - HEMATOLOGY ORD ERABLES [facility] [address] [place] [phone], [facility] [phone] * (ABNORMAL) COMPREHENSIVE METABOLIC PANEL (11/15/2024 11:41 PM CAREER DEVELOPMENT MANAGER) BUN 19 7 - 26 mg/dL 11/16/2024 12:22 AM [facility] Creatinine 0.86 0.56 - 0.96 mg/dL 11/16/2024 12:22 AM [facility] Sodium 145 136 - 145 mmol/L 11/16/2024 12:22 AM [facility] Potassium 4.5 3.5 - 4.5 mmol/L 11/16/2024 12:22 AM [facility] Chloride 113(H) 98 - 107 mmol/L 11/16/2024 12:22 AM [facility] CO2 23 22 - 29 mmol/L 11/16/2024 12:22 AM [facility] Glucose 95 70 - 99 mg/dL 11/16/2024 12:22 AM [facility] Calcium 9.5 8.4 - 10.2 mg/dL 11/16/2024 12:22 AM [facility] Protein Total 7.0 6.0 - 8.3 g/dL 11/16/2024 12:22 AM [facility] Albumin 4.1 3.4 - 5.0 g/dL 11/16/2024 12:22 AM [facility] Bilirubin Total 0.3 0.2 - 1.2 mg/dL 11/16/2024 12:22 AM [facility] Alkaline Phosphatase 139 40 - 150 U/L 11/16/2024 12:22 AM [facility] ALT 28 5 - 55 U/L 11/16/2024 12:22 AM [facility] AST 24 5 - 34 U/L 11/16/2024 12:22 AM [facility] Anion Gap 9 6 - 16 11/16/2024 12:22 AM [facility] BUN/Creatinine Ratio 22 7 - 23 11/16/2024 12:22 AM [facility] Osmolality Calculated 302(H) 275 - 295 mOsm/kg 11/16/2024 12:22 AM [facility] Albumin/Globulin Ratio 1.4 1.1 - 2.3 11/16/2024 12:22 AM [facility] eGFR by CKD-EPI 81(L) >=90 mL/min/1.7 3 m2 11/16/2024 12:22 AM [facility] Blood BLOOD SPECIMEN / Unknown Venipuncture / Unknown 11/15/2024 11:41 PM CAREER DEVELOPMENT MANAGER 11/15/2024 11:53 PM [facility] Trav Stanley MD LAB - CHEMISTRY RICA RHODES [facility] Organization Address City/State/ZIP Co de Phone Number [facility] [address] [place] [phone], [facility] [phone] * HCG BETA BLOOD QUANTITATIVE (11/15/2024 11:41 PM CAREER DEVELOPMENT MANAGER) Beta-hCG Total Quantitative <3 mIU/mL 11/16/2024 12:28 AM [facility] Comment: HCG Numeric Result Interpretation: ? [...] Unknown Venipuncture / Unknown 11/15/2024 11:41 PM CAREER DEVELOPMENT MANAGER 11/15/2024 11:53 PM CAREER DEVELOPMENT MANAGER Trav Stanley MD LAB - CHEMISTRY ORDE MEAGAN [facility] Organization Address City/State/ZIP Co de Phone Number [address] [phone], [facility] [phone] * XR CHEST 2VW (11/15/2024 11:05 PM CAREER DEVELOPMENT MANAGER) Anatomical Region Laterality Modality Chest Digital Radiogra phy 11/15/2024 11:5 0 PM CAREER DEVELOPMENT MANAGER Narrative 11/16/2024 8:03 AM CAREER DEVELOPMENT MANAGER PROCEDURE: ??XR CHEST 2VW, DATE/TIME OF EXAM: ??11/15/2024 11:05 PM, LOCATION [facility] INDICATION: R07.9: Chest pain, unspecified type ADDITIONAL CLINICAL INFORMATION: Ordering Provider Reason For Exam: ??CP Comparison: Chest x-ray 05/17/2014 FINDINGS/IMPRESSION: There is no focal consolidation, pleural effusion, or pneumothorax. The cardiomediastinal silhouette is normal. No displaced fractures visualized. A linear clip/marker projects over the right breast. Report dictated by Zane Chaparro MD (resident in diagnostic radiology). I, Jeffery Stein MD have personally reviewed and interpreted this examination/study. > Interpreting Provider: Jeffery Stein MD on 11/16/2024 8:03 AM Procedure Note Jeffery Stein MD - 11/16/2024 PROCEDURE: XR CHEST 2VW, DATE/TIME OF EXAM: 11/15/2024 11:05 PM,LOCATION [facility] INDICATION: R07.9: Chest pain, unspecified type ADDITIONAL CLINICAL INFORMATION: Ordering Provider Reason For Exam: CP Comparison: Chest x-ray 05/17/2014 FINDINGS/IMPRESSION: There is no focal consolidation, pleural effusion, or pneumothorax. The cardiomediastinal silhouette is normal. No displaced fracturesvisualized. A linear clip/marker projects over the right breast. Report dictated by Zane Chaparro MD (resident in diagnostic radiology). I, Jeffery Stein MD have personally reviewed and interpreted this examination/study. > Interpreting Provider: Jeffery Stein MD on 11/16/2024 8:03 AM Trav Stanley MD DIAGNOSTIC IMAGING O RDERABLES * EKG 12-LEAD (11/15/2024 10:29 PM CAREER DEVELOPMENT MANAGER) Pathologist [facility] Ventricular Rate 71 BPM [facility] MUSE Atrial Rate 71 BPM [facility] MUSE P-R Interval 160 ms [facility] MUSE QRS Duration ms 78 ms H MUSE Q-T Interval ms 388 ms [facility] MUSE QTC Calculation (Bezet) 421 ms [facility] MUSE Calculated P [place] 78 degrees [facility]USE Calculated R [place] 65 degrees [facility] MUSE Calculated T [place] 60 degrees [facility] MUSE Interpretation EKG NORMAL SINUS RHYTHM POSSIBLE LEFT ATRIAL ENLARGEMENT BORDERLINE ECG NO PREVIOUS ECGS AVAILABLE Confirmed by MIGUE TOSCANO, [facility] ([id number]) on 11/18/2024 2:09:48 PM [facility] MUSE 11/15/2024 10:2 9 PM CAREER DEVELOPMENT MANAGER 11/18/2024 2:09 PM CAREER DEVELOPMENT MANAGER Devon Caceres MD ECG ORDERABLES [facility] MUSE * HIV-1 HIV-2 ANTIGEN/ANTIBODY (08/16/2015 12:58 PM CDT) Pathologist [facility] HIV Antigen/Antibod y 1 & 2 Non-reacti ve Non-react drew [facility] Comment: Neither HIV-1 p24 Antigen nor HIV-1/HIV-2 Antibodies are detected. ? Blood specimen (specimen) BLOOD SPECIMEN / Unknown 08/16/2015 12:58 PM CDT 08/16/2015 12:58 PM CDT Colton Magana MD LAB - HEMATOLOGY [facility] [address] [phone] * (ABNORMAL) HEPATITIS SCREEN ACUTE (08/16/2015 2:50 AM CDT) Hepatitis A Virus Antibody IgM Non-react drew Non-react [facility] Hepatitis B Virus Surface Antigen Non-react drew Non-react [facility] Hepatitis B Core Virus Antibody IgM Non-react [facility] Non-react [facility] Hepatitis C Antibody Reactive( A) Non-react [facility] Comment: Hepatitis C Antibody screen is consistent [...] - CHEMISTRY RICA RHODES Performing Organization Address City/[facility]/ZIP Co de Phone Number [address] [phone] from Last 3 Months or Most Recently Relevant to Health Maintenance Care Teams Distributor Of Directories Relationship Specialty Start Date End Date Marlon Anderson MD [address] [place] [address] [place] [address] PCP - General Internal Medicine 04/18/21
[2024-12-20] MEDS: KETOROLAC 30 MG/ML VIAL (*BKC) IM (18:57)
[2024-12-20] MEDS: ACETAMINOPHEN 500 MG TABLET 1000 MG PO (18:59)
== END 2024-12-20 19:21 | disposition home or self-care (01) ==
LOC: ANHED 18:45
PROVIDERS: Emergency Provider Physician Assistant; PCP Internal Medicine
DX: S69.92XA Unspecified injury of left wrist, hand and finger(s), initial encounter (principal); J44.9 Chronic obstructive pulmonary disease, unspecified; I10 Essential (primary) hypertension; E89.0 Postprocedural hypothyroidism; M10.9 Gout, unspecified; F31.9 Bipolar disorder, unspecified; F41.9 Anxiety disorder, unspecified; F43.10 Post-traumatic stress disorder, unspecified; F17.200 Nicotine dependence, unspecified, uncomplicated; Z86.19 Personal history of other infectious and parasitic diseases; Z90.710 Acquired absence of both cervix and uterus; Z90.49 Acquired absence of other specified parts of digestive tract; Z79.899 Other long term (current) drug therapy; M19.022 Primary osteoarthritis, left elbow; M19.032 Primary osteoarthritis, left wrist; W00.0XXA Fall on same level due to ice and snow, initial encounter
CPT/HCPCS: 29125; 73030; 73070; 73100; 96372; 99283; 99284; A9270; J1885